=== PATIENT | female | born 1980 | race Caucasian/White ===

== ENCOUNTER → 2017-10-06 | Outpatient (CLI) | payer MEDICARE, OTHER ==
--- NOTE | 2017-10-06 12:28 | MM ---
Reason for exam: clinical finding. Baseline mammogram. History: Patient is postmenopausal. Taking estrogen for 9 years. Taking progesterone for 9 years. Physical Findings: Nurse did not find any significant physical abnormalities on exam. MG 3D Diag Mammo W/Cad AUDELIA Bilateral CC and MLO view(s) were taken. The breast tissue is heterogeneously dense. This may lower the sensitivity of mammography. Finding: There are typically benign round calcifications in the right breast. There is no discrete abnormality. These results were verbally communicated with the patient and result sheet given to the patient on 10/06/17. ASSESSMENT: Benign, BI-RAD 2 RECOMMENDATION: Routine screening mammogram of both breasts in 1 year. Manage patient on a clinical basis.
== END | disposition home or self-care (01) ==
LOC: RADMAMWWP 11:01
PROVIDERS: ATTEND Family Medicine
DX: N63.0 Unspecified lump in unspecified breast (principal)
CPT/HCPCS: 77066; G0279

== ENCOUNTER → 2017-12-12 | Outpatient (CLI) | payer MEDICARE ==
--- NOTE | 2017-12-20 11:48 | MR ---
EXAMINATION TYPE: MR brain wo/w con DATE OF EXAM: 12/12/2017 COMPARISON: Outside brain MRI June 03, 2016 HISTORY: Epilepsy / Chronic Migraine / Cerebral Aneurysm all per order. Additional symptoms of dizzin ess and/or hearing loss per patient as well as cervical cancer. TECHNIQUE: Multiplanar, multisequence images of the brain and brainstem is performed without and with IV contras t, utilizing 8.5 mL intravenous Gadavist . FINDINGS: Diffusion weighted images demonstrate no evidence of a recent infarct or other diffusion ab normality. There is no extra-axial fluid collection or significant white matter signal abnormality. The ventricular system and cisternal spaces are normal in size and appearance. The brain volume is age appropriate. Midline structures demonstrate normal morphology. The craniocervical junction appears within normal limits. Post contrast images demonstrate no abnormal enhancement. Artifact from prior aneurysm surge ry along course of left internal carotid artery on prior report is not as well seen on current study. The dural venous sinuses appear patent. There is persistent severe mucosal thickening nearly complet kathy filling the right maxillary sinus. There is interval resolution of rounded mucous retention cyst or polyp in the left maxillary sinus. Mild mucosal thickening bilateral ethmoid sinuses is redemonstr ated. IMPRESSION: Persistent chronic paranasal sinus disease most prominent in right maxillary sinus. No si gnificant new finding is seen to account for patient's symptoms.
== END | disposition home or self-care (01) ==
LOC: RADMRIMAIN 09:14
PROVIDERS: ATTEND Family Medicine
DX: G40.309 Generalized idiopathic epilepsy and epileptic syndromes, not intractable, without status epilepticus (principal); G43.701 Chronic migraine without aura, not intractable, with status migrainosus; I67.1 Cerebral aneurysm, nonruptured
CPT/HCPCS: 70553; A9581

== ENCOUNTER → 2019-01-30 | Outpatient (CLI) | payer MEDICARE ==
--- NOTE | 2019-01-30 11:51 | US ---
EXAMINATION TYPE: US kidneys/renal and bladder DATE OF EXAM: 01/30/2019 COMPARISON: US CLINICAL HISTORY: N30.01 Acute cystitis with hematuria, ...UTI, renal infections, right flank pain; p susanna's order requested aorta US too. EXAM MEASUREMENTS: Right Kidney: 10.0 x 5.4 x 4.2 cm Left Kidney: 10.4 x 5.4 x 4.8 cm Post Void Residual Volume: 3.8 mL Right Kidney: No hydronephrosis or masses seen Left Kidney: No hydronephrosis or masses seen Bladder: wnl Bilateral Jets seen: Yes Normal Post Void Residual: Yes Aorta: size is wnl throughout Kidneys show normal cortical medullary differentiation. There is no ascites. IMPRESSION: Normal post void residual volume. No evident abdominal aortic aneurysm.
== END | disposition home or self-care (01) ==
LOC: RADUSWWP 08:09
PROVIDERS: ATTEND Family Medicine
DX: N30.01 Acute cystitis with hematuria (principal); M54.5 Low back pain
CPT/HCPCS: 76770

== ENCOUNTER → 2019-04-25 | Outpatient (CLI) | payer MEDICARE ==
--- NOTE | 2019-04-25 15:27 | CT ---
EXAMINATION TYPE: CT abdomen pelvis wo con DATE OF EXAM: 04/25/2019 COMPARISON: Correlation kidney ultrasound 01/30/2019 HISTORY: 39-year-old female Right lower quadrant abdominal pain radiating into flank area and diarrhe a. CT DLP: 676 mGycm. Automated exposure control for dose reduction was used. TECHNIQUE: Contiguous axial scanning of the abdomen and pelvis without IV contrast. Coronal and sagit luiza reconstructions performed. FINDINGS: Heart normal size without pericardial effusion. Lung bases clear without pleural effusion. Noncontrast appearance of the liver, gallbladder, adrenal glands, kidneys, spleen with anterior splen ule, and pancreas shows no gross abnormal body. Normal appendix. Mild to moderate overall stool burden. Oral contrast progressed to the distal transv erse colon. No pericolonic inflammatory change. No mesenteric or retroperitoneal lymphadenopathy. Circumferential bladder wall thickening. Uterus appears surgically absent. However, there is a cystic area measuring 2.7 cm at the vaginal cuff region. Neither ovary is visualized. Some slight nodularit y within the cul-de-sac measures 1.5 cm. No pelvic lymphadenopathy seen. Bones: Focal disc herniation at L4-L5 mildly narrowing the spinal canal. IMPRESSION: 1. Status post hysterectomy. There is a 2.7 cm cystic area at the vaginal cuff. Correlate as to time since surgery. Seroma, chronic hematoma, abscess, and endometrioma are all differential. 2. Additional 1.5 cm soft tissue nodularity in the cul-de-sac. Endometriosis not excluded. Follow-up as indicated. 3. Normal appendix. No nephrolithiasis or hydronephrosis.
== END | disposition home or self-care (01) ==
LOC: RADCTMAIN 10:39
PROVIDERS: ATTEND Family Medicine
DX: M79.89 Other specified soft tissue disorders (principal); N89.8 Other specified noninflammatory disorders of vagina; R10.813 Right lower quadrant abdominal tenderness; Z90.710 Acquired absence of both cervix and uterus
CPT/HCPCS: 74176

== ENCOUNTER 2019-07-15 19:11 | Inpatient (IN) | payer MEDICARE ==
[2019-07-15] MEDS ORDERED: PANTOPRAZOLE 40 MG/10 ML VIAL IVP STA (19:42)
[2019-07-15] MEDS ORDERED: SODIUM CHLORIDE 0.9% 1,000 ML IV STA (19:42)
[2019-07-15] MEDS ORDERED: diphenhydrAMINE 50 MG/ML 1 ML VIAL IVP STA (19:52)
[2019-07-15] MEDS ORDERED: MORPHINE SULFATE 4 MG/ML SYRINGE IVP STA (19:53)
[2019-07-15 20:10] LABS: Basophils # (A) 0.1 k/uL (0-0.2); Basophils % (A) 1 %; Eosinophils # (A) 0.4 k/uL (0-0.7); Eosinophils % (A) 3 %; HCT 47.2 % (34.0-46.0); HGB 15.7 gm/dL (11.4-16.0); Lymphocytes # (A) 2.7 k/uL (1.0-4.8); Lymphocytes % (A) 22 %; MCH 32.6 pg (25.0-35.0); MCHC 33.3 g/dL (31.0-37.0); MCV 98.1 fL (80.0-100.0); Mean Platelet Volume 6.7; Monocytes # (A) 0.7 k/uL (0-1.0); Monocytes % (A) 5 %; Neutrophils # (A) 8.3 k/uL (1.3-7.7); Neutrophils % (A) 68 %; Platelet Count 203 k/uL (150-450); RBC 4.81 m/uL (3.80-5.40); RDW 11.9 % (11.5-15.5); WBC 12.2 k/uL (3.8-10.6)
--- NOTE | 2019-07-15 20:20 | ED ---
General Adult HPI - General Chief complaint: GI Bleed Stated complaint: GI bleed Time Seen by Provider: 07/15/19 19:22 Source: patient, RN notes reviewed Mode of arrival: ambulatory Limitations: no limitations - History of Present Illness Initial comments: 39-year-old female with a past medical history of brain aneurysm, endometriosis, cervical cancer, Crohn's, hysterectomy presents to the emergency determine for diarrhea. Patient has had watery diarrhea for about 2 days now. This is associated with severe cramping abdominal pain. Today patient states she had bright red blood from the rectum while having diarrhea. States she had full episodes of diarrhea that looked like complete blood. Patient has a history of Crohn's. States she has never had this type of bleeding before. States she is not currently on any Crohn's medications. Denies any abdominal surgeries besides hysterectomy.Patient has no other complaints at this time including shortness of breath, chest pain, nausea or vomiting, headache, or visual changes. - Related Data Allergies Allergy/AdvReac Type Severity Reaction Status Date / Time ceftriaxone [From Rocephin] Allergy Itching Verified 07/15/19 19:19 Influenza Virus Vaccines Allergy Nausea & Verified 07/15/19 19:19 Vomiting Iodinated Contrast Media Allergy Itching Verified 07/15/19 19:19 Review of Systems ROS Statement: Those systems with pertinent positive or pertinent negative responses have been documented in the HPI. ROS Other: All systems not noted in ROS Statement are negative. Past Medical History Additional Past Medical History / Comment(s): brain aneurysm, endometriosis, cervical cancer, Chrohns History of Any Multi-Drug Resistant Organisms: None Reported Past Surgical History: Hysterectomy Additional Past Surgical History / Comment(s): brain surgery Past Psychological History: No Psychological Hx Reported Smoking Status: Never smoker Past Alcohol Use History: None Reported Past Drug Use History: None Reported General Exam Limitations: no limitations General appearance: alert, in no apparent distress Head exam: Present: atraumatic, normocephalic, normal inspection Eye exam: Present: normal appearance, PERRL, EOMI. Absent: scleral icterus, conjunctival injection, periorbital swelling ENT exam: Present: normal exam, mucous membranes moist Neck exam: Present: normal inspection, full ROM. Absent: tenderness, meningismus, lymphadenopathy Respiratory exam: Present: normal lung sounds bilaterally. Absent: respiratory distress, wheezes, rales, rhonchi, stridor Cardiovascular Exam: Present: regular rate, normal rhythm, normal heart sounds. Absent: systolic murmur, diastolic murmur, rubs, gallop, clicks GI/Abdominal exam: Present: soft, tenderness (Mild generalized abdominal tenderness without guarding), normal bowel sounds. Absent: distended, guarding, rebound, rigid Rectal exam: Present: normal inspection, normal rectal tone. Absent: bloody stool, fecal impaction, hemorrhoids, mass, tenderness Neurological exam: Present: alert Course Vital Signs 07/15/19 07/15/19 19:14 21:55 Temperature 97.7 F Pulse Rate 121 H 90 Respiratory 16 18 Rate Blood Pressure 124/81 132/95 O2 Sat by Pulse 97 98 Oximetry Medical Decision Making - Medical Decision Making Patient initially tachycardic upon presentation however this is due to anxiety as patient is shaking states she has never had potato bleeding before. Exam reveals diffuse abdominal tenderness. There was no gross blood on rectal exam. CBC shows a mild white blood cell count of 12.2. Patient is afebrile. CMP is unremarkable. A urine does show some evidence of dehydration but looks contaminated by skin cells. CT abdomen and pelvis was obtained given patient's abdominal pain and history of Crohn's disease which shows diffuse wall thickening of the sigmoid colon and lower descending colon that could relate to inflammatory bowel disease and Crohn's disease. There is also evidence of a midline cystic pelvic mass at the vaginal vault that could be postsurgical hematoma or seroma. Patient states her primary care doctor was aware of this. Patient states she is not on any medications for Crohn's. States she has never seen a GI doctor, just sees her primary care provider for this. At this time given concern for rectal bleeding patient will be admitted and GI will be consulted. Patient will be started on Solu-Medrol. - Lab Data Result diagrams: 07/15/19 17:30 07/15/19 17:30 Lab Results 07/15/19 07/15/19 07/15/19 Range/Units 17:25 17:30 17:30 WBC 12.2 H (3.8-10.6) k/uL RBC 4.81 (3.80-5.40) m/uL Hgb 15.7 (11.4-16.0) gm/dL Hct 47.2 H (34.0-46.0) % MCV 98.1 (80.0-100.0) fL MCH 32.6 (25.0-35.0) pg MCHC 33.3 (31.0-37.0) g/dL RDW 11.9 (11.5-15.5) % Plt Count 203 (150-450) k/uL Neutrophils % 68 % Lymphocytes % 22 % Monocytes % 5 % Eosinophils % 3 % Basophils % 1 % Neutrophils # 8.3 H (1.3-7.7) k/uL Lymphocytes # 2.7 (1.0-4.8) k/uL Monocytes # 0.7 (0-1.0) k/uL Eosinophils # 0.4 (0-0.7) k/uL Basophils # 0.1 (0-0.2) k/uL Sodium (137-145) mmol/L Potassium (3.5-5.1) mmol/L Chloride (98-107) mmol/L Carbon Dioxide (22-30) mmol/L Anion Gap mmol/L BUN (7-17) mg/dL Creatinine (0.52-1.04) mg/dL Est GFR (CKD-EPI)AfAm (>60 ml/min/1.73 sqM) Est GFR (CKD-EPI)NonAf (>60 ml/min/1.73 sqM) Glucose (74-99) mg/dL Calcium (8.4-10.2) mg/dL Magnesium (1.6-2.3) mg/dL Total Bilirubin (0.2-1.3) mg/dL AST (14-36) U/L ALT (9-52) U/L Alkaline Phosphatase (38-126) U/L Total Protein (6.3-8.2) g/dL Albumin (3.5-5.0) g/dL Urine Color Urine Appearance (Clear) Urine pH (5.0-8.0) Ur Specific [place] (1.001-1.035) Urine Protein (Negative) Urine Glucose (UA) (Negative) Urine Ketones (Negative) Urine Blood (Negative) Urine Nitrite (Negative) Urine Bilirubin (Negative) Urine Urobilinogen (<2.0) mg/dL Ur Leukocyte Esterase (Negative) Urine RBC (0-5) /hpf Urine WBC (0-5) /hpf Ur Squamous Epith Cells (0-4) /hpf Urine Bacteria (None) /hpf Hyaline Casts (0-2) /lpf Urine Mucus (None) /hpf Stool Occult Blood (Negative) Blood Type A Positive Blood Type Confirm A Positive Blood Type Recheck No Previous Record Bld Type Recheck Status CABO Indicated Antibody Screen NEGATIVE Spec Expiration Date 07/18/2019 - 232907/15/19 07/15/19 07/15/19 Range/Units 17:30 19:32 20:00 WBC (3.8-10.6) k/uL RBC (3.80-5.40) m/uL Hgb (11.4-16.0) gm/dL Hct (34.0-46.0) % MCV (80.0-100.0) fL MCH (25.0-35.0) pg MCHC (31.0-37.0) g/dL RDW (11.5-15.5) % Plt Count (150-450) k/uL Neutrophils % % Lymphocytes % % Monocytes % % Eosinophils % % Basophils % % Neutrophils # (1.3-7.7) k/uL Lymphocytes # (1.0-4.8) k/uL Monocytes # (0-1.0) k/uL Eosinophils # (0-0.7) k/uL Basophils # (0-0.2) k/uL Sodium 141 (137-145) mmol/L Potassium 3.5 (3.5-5.1) mmol/L Chloride 107 (98-107) mmol/L Carbon Dioxide 24 (22-30) mmol/L Anion Gap 10 mmol/L BUN 12 (7-17) mg/dL Creatinine 0.86 (0.52-1.04) mg/dL Est GFR (CKD-EPI)AfAm >90 (>60 ml/min/1.73 sqM) Est GFR (CKD-EPI)NonAf 85 (>60 ml/min/1.73 sqM) Glucose 91 (74-99) mg/dL Calcium 9.1 (8.4-10.2) mg/dL Magnesium 1.9 (1.6-2.3) mg/dL Total Bilirubin 0.4 (0.2-1.3) mg/dL AST 23 (14-36) U/L ALT 24 (9-52) U/L Alkaline Phosphatase 63 (38-126) U/L Total Protein 8.1 (6.3-8.2) g/dL Albumin 4.4 (3.5-5.0) g/dL Urine Color Yellow Urine Appearance Cloudy H (Clear) Urine pH 5.5 (5.0-8.0) Ur Specific [place] 1.020 (1.001-1.035) Urine Protein Trace H (Negative) Urine Glucose (UA) Negative (Negative) Urine Ketones 1+ H (Negative) Urine Blood Moderate H (Negative) Urine Nitrite Negative (Negative) Urine Bilirubin Negative (Negative) Urine Urobilinogen <2.0 (<2.0) mg/dL Ur Leukocyte Esterase Moderate H (Negative) Urine RBC 9 H (0-5) /hpf Urine WBC 6 H (0-5) /hpf Ur Squamous Epith Cells 19 H (0-4) /hpf Urine Bacteria Rare H (None) /hpf Hyaline Casts 13 H (0-2) /lpf Urine Mucus Many H (None) /hpf Stool Occult Blood Positive H (Negative) Blood Type Blood Type Confirm Blood Type Recheck Bld Type Recheck Status Antibody Screen Spec Expiration Date Disposition Clinical Impression: Hematochezia, Crohn's colitis, Abdominal pain, Diarrhea Disposition: ADMITTED IP TO THIS [facility] Condition: Fair Is patient prescribed a controlled substance at d/c from ED?: No Referrals: Ty Moctezuma DO [Primary Care Provider] - 1-2 days Time of Disposition: 22:02
[2019-07-15 20:23] LABS: ALT 24 U/L (9-52); AST 23 U/L (14-36); African American GFR (CKD) >90 (>60 ml/min/1.73 sqM); Albumin 4.4 g/dL (3.5-5.0); Alkaline Phosphatase 63 U/L (38-126); Anion Gap 10 mmol/L; Blood Urea Nitrogen 12 mg/dL (7-17); Calcium 9.1 mg/dL (8.4-10.2); Carbon Dioxide 24 mmol/L (22-30); Chloride 107 mmol/L (98-107); Glucose 91 mg/dL (74-99); Magnesium 1.9 mg/dL (1.6-2.3); Non-African American GFR(CKD) 85 (>60 ml/min/1.73 sqM); Potassium 3.5 mmol/L (3.5-5.1); Sodium 141 mmol/L (137-145); Total Bilirubin 0.4 mg/dL (0.2-1.3); Total Protein 8.1 g/dL (6.3-8.2)
[2019-07-15 20:32] LABS: Appearance,Urine Cloudy (Clear); Bacteria,Urine Rare /hpf; Bilirubin,Urine Negative (Negative); Blood,Urine Moderate (Negative); Color,Urine Yellow; Glucose,Urine (UA) Negative (Negative); Hyaline Casts,Urine 13 /lpf (0-2); Ketones,Urine 1+ (Negative); Leukocyte Esterase,Urine Moderate (Negative); Mucus,Urine Many /hpf; Nitrite,Urine Negative (Negative); PH, Urine 5.5 (5.0-8.0); Protein,Urine Trace (Negative); RBC,Urine 9 /hpf (0-5); Squamous Epithelial Cell,Urine 19 /hpf (0-4); Urobilinogen,Urine <2.0 mg/dL (<2.0)
--- NOTE | 2019-07-15 20:59 | CT ---
EXAMINATION TYPE: CT abdomen pelvis w con DATE OF EXAM: 07/15/2019 COMPARISON: None HISTORY: GI bleed, cramping, h/o crohns. CT DLP: 899.8 mGycm Automated exposure control for dose reduction was used. TECHNIQUE: Helical acquisition of images was performed from the lung bases through the pelvis. CONTRAST: Performed without Oral Contrast and with IV Contrast, patient injected with 100 mL of Isovue 370. FINDINGS: Multiple axial sections were obtained from the diaphragm to the floor the pelvis with intravenous con trast. Lung bases are clear. There is no pleural effusion. Heart size is normal. Liver spleen stomach pancre as gallbladder appear normal. Bile ducts are not dilated. There is no adrenal mass. Kidneys show satisfactory contrast opacification. There is no hydronephrosi s. Ureters are not dilated. There is no retroperitoneal adenopathy. Appendix appears normal. Bladder distends smoothly. There is no inguinal hernia. There is apparent hysterectomy and some cystic mass a t the hysterectomy site that measures 3.4 cm. This could be a seroma or chronic hematoma. Lumbar vertebra have normal spacing and alignment. Posterior elements are intact. There is diffuse wall thickening of the descending colon and the sigmoid colon. There is no free air. There is no ascites. Small bowel appears fairly normal. There is no sign of a m echanical bowel obstruction. There is no ascites or free air. IMPRESSION: DIFFUSE WALL THICKENING OF THE SIGMOID COLON AND LOWER DESCENDING COLON COULD RELATE TO INFLAMMATORY BOWEL DISEASE AND CROHN'S DISEASE. MIDLINE CYSTIC PELVIC MASS AT THE VAGINAL VAULT COULD BE POSTSURGICAL HEMATOMA OR SEROMA.
[2019-07-15] MEDS ORDERED: methylPREDNISolone SOD SUCCI 125 MG/2 ML VIAL IV STA (21:38)
[2019-07-15] MEDS ORDERED: MORPHINE SULFATE 4 MG/ML SYRINGE IV PRN (21:54)
[2019-07-15] MEDS ORDERED: NALOXONE 0.4 MG/ML 1 ML VIAL IV PRN (21:54)
[2019-07-15] MEDS ORDERED: ONDANSETRON 4 MG/2 ML VIAL IVP PRN (21:54)
[2019-07-15] MEDS ORDERED: HYDROmorphone 0.5 MG/0.5 ML SYRINGE IVP STA (21:58)
[2019-07-15] MEDS: SODIUM CHLORIDE 0.9% 1,000 ML IV SCH (22:24)
[2019-07-15 23:01] VITALS: BMI 26.6
[2019-07-16] MEDS ORDERED: diphenhydrAMINE 50 MG/ML 1 ML VIAL IVP STA (01:13)
[2019-07-16] MEDS: AMITRIPTYLINE HCL 50 MG TAB PO SCH ×2 (01:26→20:37)
[2019-07-16] MEDS: DIVALPROEX 500 MG TABLET.DR PO SCH ×4 (01:26→20:36)
[2019-07-16] MEDS: tiZANidine 4 MG TAB PO SCH ×4 (01:27→20:37)
[2019-07-16] MEDS: ESTRADIOL 0.5 MG TAB PO SCH ×2 (01:27→20:37)
[2019-07-16] MEDS: HYDROmorphone 0.5 MG/0.5 ML SYRINGE IVP PRN ×6 (01:27→20:37)
[2019-07-16] MEDS: SODIUM CHLORIDE 0.9% 1,000 ML IV SCH ×3 (05:32→21:22)
[2019-07-16 07:52] LABS: Basophils % (A) 0 %; Eosinophils % (A) 0 %; HGB 13.6 gm/dL (11.4-16.0); Lymphocytes # (A) 1.3 k/uL (1.0-4.8); Lymphocytes % (A) 18 %; MCH 33.9 pg (25.0-35.0); MCHC 34.1 g/dL (31.0-37.0); MCV 99.4 fL (80.0-100.0); Mean Platelet Volume 6.9; Monocytes # (A) 0.1 k/uL (0-1.0); Monocytes % (A) 1 %; Neutrophils # (A) 5.6 k/uL (1.3-7.7); Neutrophils % (A) 80 %; Platelet Count 175 k/uL (150-450); RBC 4.02 m/uL (3.80-5.40); RDW 11.9 % (11.5-15.5)
[2019-07-16] MEDS: TOPIRAMATE 100 MG TAB PO SCH (07:54)
[2019-07-16] MEDS: methylPREDNISolone SOD SUCCI 125 MG/2 ML VIAL IV SCH ×3 (07:55→19:37)
--- NOTE | 2019-07-16 08:07 | P.HPIM ---
History of Present Illness This is a pleasant 39 years old female with past medical history of Crohn's disease since 2004, cervical cancer in 2013 and endometriosis, brain aneurysm on 06/2013 status post 2 coils and 5 stents, she is status post hysterectomy in 2007 because of severe endometriosis. Presents because of 1 day of severe crampy abdominal pain, mainly in the lower abdomen and both right and left sides, it was severe at points felt like pain. [place] like a twisting and colicky pain. Her pain came down with Dilaudid /. Associated with black stool later on to be followed with mucousy and straight blood, and per rectum. Patient vomited twice. Patient states that she has history of Crohn's disease many years ago. Patient denies smoking, alcohol or illicit drug her father recently on 04/2019, she is coping with her status and she sees a psychologist for years however she denies hopelessness or hopelessness or suicidal ideation. No hallucination or delusions. On the presentation Vitas looks stable labs showing mild leukocytosis of 12.2 K, other than that looks unremarkable CBC, BMP, liver enzymes, urine analysis is suspicious for infection. Blood in stool is positive. CT of the abdomen and pelvis with IV contrast: Cystic mass at the hysterectomy sites which could be a seroma or chronic hematoma, there is diffuse wall thickening of the sigmoid and lower descending colon And emergency room, patient given 1 L of normal saline, pain management and 1 dose of steroids. GI team was consulted Review of Systems CONSTITUTIONAL: No fever, no malaise, no fatigue. HEENT: No recent visual problems or hearing problems. Denied any sore throat. CARDIOVASCULAR: No orthopnea, PND, no palpitations, no syncope. PULMONARY: No shortness of breath, no cough, no hemoptysis. GASTROINTESTINAL: Normoactive bowel sounds. NEUROLOGICAL: No headaches, no weakness, no numbness. HEMATOLOGICAL: Denies any bleeding or petechiae. GENITOURINARY: Denies any burning micturition, frequency, or urgency. MUSCULOSKELETAL/RHEUMATOLOGICAL: Denies any joint pain, swelling, or any muscle pain. ENDOCRINE: Denies any polyuria or polydipsia. Past Medical History Additional Past Medical History / Comment(s): brain aneurysm 06/2013, endometriosis, cervical cancer 2013, Chrohns 2004 History of Any Multi-Drug Resistant Organisms: None Reported Past Surgical History: Hysterectomy Additional Past Surgical History / Comment(s): brain surgery 06/2013, hysterectomy 2007. Past Anesthesia/Blood Transfusion Reactions: No Reported Reaction Past Psychological History: Anxiety, Depression, PTSD Smoking Status: Never smoker Past Alcohol Use History: None Reported Past Drug Use History: None Reported - Past Family History Father Additional Family Medical History / Comment(s): brain aneurysm 04/2019 passed Mother Family Medical History: No Reported History Brother(s) Family Medical History: Thyroid Disorder Medications and Allergies Home Medications Medication Instructions Recorded Confirmed Type Amitriptyline HCl 1 tab PO HS 07/15/19 07/15/19 History Divalproex [Depakote] 2 tab PO HS 07/15/19 07/15/19 History Estradiol [Estrace] 0.5 mg PO HS 07/15/19 07/15/19 History Ibuprofen [Motrin] 800 mg PO Q8H PRN 07/15/19 07/15/19 History Ketorolac Tromethamine 10 mg PO Q6H PRN 07/15/19 07/15/19 History Topiramate [Topamax] 100 mg PO DAILY 07/15/19 07/15/19 History tiZANidine HCL 2 tab PO HS 07/15/19 07/15/19 History Allergies Allergy/AdvReac Type Severity Reaction Status Date / Time ceftriaxone [From Rocephin] Allergy Itching Verified 07/15/19 19:19 Influenza Virus Vaccines Allergy Nausea & Verified 07/15/19 19:19 Vomiting Iodinated Contrast Media Allergy Itching Verified 07/15/19 19:19 Physical Exam Vitals: Vital Signs Temp Pulse Pulse Resp BP BP Pulse Ox 07/15/19 23:40 97.9 F 90 20 130/73 97 07/15/19 21:55 90 18 132/95 98 07/15/19 19:14 97.7 F 121 H 16 124/81 97 Intake and Output 07/15/19 07/16/19 07/16/19 22:59 06:59 14:59 Other: # Voids 0 Weight 72.575 kg GENERAL: The patient is alert and oriented x3, not in any acute distress. Well developed, well nourished. HEENT: Pupils are round and equally reacting to light. EOMI. No scleral icterus. No conjunctival pallor. Normocephalic, atraumatic. No pharyngeal erythema. No thyromegaly. CARDIOVASCULAR: S1 and S2 present. No murmurs, rubs, or gallops. PULMONARY: Chest is clear to auscultation, no wheezing or crackles. -ABDOMEN: Soft, lower abdominal pain tenderness but no rebound tenderness or guarding, nondistended, normoactive bowel sounds. No palpable organomegaly. MUSCULOSKELETAL: No joint swelling or deformity. EXTREMITIES: No cyanosis, clubbing, or pedal edema. NEUROLOGICAL: Gross neurological examination did not reveal any focal deficits. SKIN: No rashes. No petechiae Results CBC & Chem 7: 07/16/19 07:06 07/15/19 17:30 Labs: Abnormal Lab Results - Last 24 Hours (Table) 07/15/19 07/15/19 07/15/19 Range/Units 17:30 19:32 20:00 WBC 12.2 H (3.8-10.6) k/uL Hct 47.2 H (34.0-46.0) % Neutrophils # 8.3 H (1.3-7.7) k/uL Urine Appearance Cloudy H (Clear) Urine Protein Trace H (Negative) Urine Ketones 1+ H (Negative) Urine Blood Moderate H (Negative) Ur Leukocyte Esterase Moderate H (Negative) Urine RBC 9 H (0-5) /hpf Urine WBC 6 H (0-5) /hpf Ur Squamous Epith Cells 19 H (0-4) /hpf Urine Bacteria Rare H (None) /hpf Hyaline Casts 13 H (0-2) /lpf Urine Mucus Many H (None) /hpf Stool Occult Blood Positive H (Negative) Thrombosis Risk Factor Assmnt - Choose All That Apply Any of the Below Risk Factors Present?: Yes Each Factor Represents 1 point: Age 41-60 years, Obesity (BMI >25), Oral contraceptives or hormone replacement therapy Other Risk Factors: No Other congenital or acquired thrombophilia - If yes, enter type in comment: No Thrombosis Risk Factor Assessment Total Risk Factor Score: 3 Thrombosis Risk Factor Assessment Level: Moderate Risk Assessment and Plan Assessment: Acute Crohn's exacerbation, with sigmoid and descending Colitis Cystic mass at the vaginal vault could be seroma or hematoma Acute urinary tract infection History of brain aneurysm on 06/2013, followed by migrated and seizure disease History of cervical cancer and endometriosis status post hysterectomy Chronic Crohn's disease since 2004. Anxiety and depression, not in acute process. Recent in the family, father, expected bereavement but no overt depression Plan: this is a pleasant 39 years old female who presents because of sigmoid and descending colitis, suspicious for acute Crohn's exacerbation. Consult GI, continue with IV fluids. Pain management. Call surgical consult for cystic mass and abdominal pain. Follow-up stool culture, C. diff and urine culture. Start Levaquin for UTI and possible gastroenteritis Labs and medication were reviewed.. Continue same treatment. Continue with symptomatic treatment. Resume home medication. Monitor lytes and vitals. DVT and GI prophylaxis. Further recommendations of the clinical course of the patient DVT prophylaxis: no Subcutaneous heparin in view of possible GI bleed GI Prophylaxis: Protonix Prognosis is guarded
[2019-07-16] MEDS: LEVOFLOXACIN 500MG-D5W PMX 500 MG in DEXTROSE/WATER 1 100ML.BAG IVPB SCH (09:35)
[2019-07-16] MEDS: PANTOPRAZOLE 40 MG/10 ML VIAL IVP SCH (09:35)
--- NOTE | 2019-07-16 15:45 | P.GSCN ---
History of Present Illness Consult date: 07/16/19 Reason for Consult: cystic mass, abdominal pain Requesting physician: Conrado E Sheet History of present illness: CHIEF COMPLAINT: Abdominal pain HISTORY OF PRESENT ILLNESS: 39-year-old female who presented to the emergency room with chief complaint of severe cramping abdominal pain, diarrhea, and bright red blood per rectum. Patient does report a history of Crohns disease, but has not followed outpatient with a GI physician outpatient. She reports her last flareup was last fall. She currently rates her pain 04/07. Patient reports her hysterectomy was approximately 11 years ago. PAST MEDICAL HISTORY: See list. PAST SURGICAL HISTORY: See list. SOCIAL HISTORY: No illicit drug use. REVIEW OF SYSTEMS: CONSTITUTIONAL: Denies fever or chills. HEENT: Denies blurred vision, vision changes, or eye pain. Denies hemoptysis CARDIOVASCULAR: Denies chest pain or pressure. RESPIRATORY: No shortness of breath. GASTROINTESTINAL: Refer to HPI for pertinent findings HEMATOLOGIC: Denies bleeding disorders. GENITOURINARY: Denies any blood in urine. SKIN: Denies pruitis. Denies rash. PHYSICAL EXAM: VITAL SIGNS: Reviewed. GENERAL: Well-developed in no acute distress. HEENT: No sclera icterus. Extraocular movements grossly intact. Moist buccal mucosa. Head is atraumatic, normocephalic. ABDOMEN: Soft. Nondistended. Tenderness with palpation. NEUROLOGIC: Alert and oriented. Cranial nerves II through XII grossly intact. LABORATORY DATA: WBC on admission 12.2. Repeat 7.0. Hemoglobin 13.6. Platelet count 175. IMAGING: CT abdomen and pelvis: Diffuse wall thickening of the sigmoid colon and lower descending colon correlate for inflammatory bowel disease or Crohn's disease. Midline cystic pelvic mass at the vaginal vault could be postsurgical hematoma or seroma. ASSESSMENT: 1. Abdominal pain 2. Cystic mass at previous hysterectomy site measuring 3.4 cm. Possible seroma versus chronic hematoma 3. Acute exacerbation of Crohn's disease PLAN: 1. Continue IV antibiotics 2. Continue clear liquid diet 3. GI also on consult. Await recommendations 4. No surgical intervention recommended for possible cystic mass at previous hysterectomy site from a general surgery standpoint. Nurse practitioner note has been reviewed by physician. Signing provider agrees with the documented findings, assessment, and plan of care. Past Medical History Additional Past Medical History / Comment(s): brain aneurysm 06/2013, endometriosis, cervical cancer 2013, Chrohns 2005 History of Any Multi-Drug Resistant Organisms: None Reported Past Surgical History: Hysterectomy Additional Past Surgical History / Comment(s): brain surgery 06/2013, hysterectomy 2007. Past Anesthesia/Blood Transfusion Reactions: No Reported Reaction Past Psychological History: Anxiety, Depression, PTSD Smoking Status: Never smoker Past Alcohol Use History: None Reported Past Drug Use History: None Reported - Past Family History Father Additional Family Medical History / Comment(s): brain aneurysm 04/2019 passed Mother Family Medical History: No Reported History Brother(s) Family Medical History: Thyroid Disorder Medications and Allergies Home Medications Medication Instructions Recorded Confirmed Type Amitriptyline HCl 50 mg PO HS 07/15/19 07/16/19 History Divalproex [Depakote] 1,000 mg PO HS 07/15/19 07/16/19 History Estradiol [Estrace] 0.5 mg PO HS 07/15/19 07/16/19 History Ibuprofen [Motrin] 800 mg PO Q8H PRN 07/15/19 07/16/19 History Ketorolac Tromethamine 10 mg PO Q8H PRN 07/15/19 07/16/19 History Topiramate [Topamax] 100 mg PO DAILY 07/15/19 07/16/19 History tiZANidine HCL 8 mg PO HS 07/15/19 07/16/19 History Allergies Allergy/AdvReac Type Severity Reaction Status Date / Time ceftriaxone [From Rocephin] Allergy Itching Verified 07/16/19 09:42 Influenza Virus Vaccines Allergy Nausea & Verified 07/16/19 09:42 Vomiting Iodinated Contrast Media Allergy Itching Verified 07/16/19 09:42 Surgical - Exam Vital Signs Temp Pulse Resp BP Pulse Ox 97.7 F 121 H 16 124/81 97 07/15/19 19:14 07/15/19 19:14 07/15/19 19:14 07/15/19 19:14 07/15/19 19:14 Results - Labs 07/16/19 07:06 07/15/19 17:30 Abnormal Lab Results - Last 24 Hours (Table) 07/15/19 07/15/19 07/15/19 Range/Units 17:30 19:32 20:00 WBC 12.2 H (3.8-10.6) k/uL Hct 47.2 H (34.0-46.0) % Neutrophils # 8.3 H (1.3-7.7) k/uL Urine Appearance Cloudy H (Clear) Urine Protein Trace H (Negative) Urine Ketones 1+ H (Negative) Urine Blood Moderate H (Negative) Ur Leukocyte Esterase Moderate H (Negative) Urine RBC 9 H (0-5) /hpf Urine WBC 6 H (0-5) /hpf Ur Squamous Epith Cells 19 H (0-4) /hpf Urine Bacteria Rare H (None) /hpf Hyaline Casts 13 H (0-2) /lpf Urine Mucus Many H (None) /hpf Stool Occult Blood Positive H (Negative) Diabetes panel 07/15/19 Range/Units 17:30 Sodium 141 (137-145) mmol/L Potassium 3.5 (3.5-5.1) mmol/L Chloride 107 (98-107) mmol/L Carbon Dioxide 24 (22-30) mmol/L BUN 12 (7-17) mg/dL Creatinine 0.86 (0.52-1.04) mg/dL Glucose 91 (74-99) mg/dL Calcium 9.1 (8.4-10.2) mg/dL AST 23 (14-36) U/L ALT 24 (9-52) U/L Alkaline Phosphatase 63 (38-126) U/L Total Protein 8.1 (6.3-8.2) g/dL Albumin 4.4 (3.5-5.0) g/dL Calcium panel 07/15/19 Range/Units 17:30 Calcium 9.1 (8.4-10.2) mg/dL Albumin 4.4 (3.5-5.0) g/dL Pituitary panel 07/15/19 Range/Units 17:30 Sodium 141 (137-145) mmol/L Potassium 3.5 (3.5-5.1) mmol/L Chloride 107 (98-107) mmol/L Carbon Dioxide 24 (22-30) mmol/L BUN 12 (7-17) mg/dL Creatinine 0.86 (0.52-1.04) mg/dL Glucose 91 (74-99) mg/dL Calcium 9.1 (8.4-10.2) mg/dL Adrenal panel 07/15/19 Range/Units 17:30 Sodium 141 (137-145) mmol/L Potassium 3.5 (3.5-5.1) mmol/L Chloride 107 (98-107) mmol/L Carbon Dioxide 24 (22-30) mmol/L BUN 12 (7-17) mg/dL Creatinine 0.86 (0.52-1.04) mg/dL Glucose 91 (74-99) mg/dL Calcium 9.1 (8.4-10.2) mg/dL Total Bilirubin 0.4 (0.2-1.3) mg/dL AST 23 (14-36) U/L ALT 24 (9-52) U/L Alkaline Phosphatase 63 (38-126) U/L Total Protein 8.1 (6.3-8.2) g/dL Albumin 4.4 (3.5-5.0) g/dL
--- NOTE | 2019-07-16 18:16 | CONS ---
CONSULTATION DATE OF DICTATION: 07/16/2019 REASON FOR CONSULTATION: Abdominal pain, bloody diarrhea of 4 days' duration. HISTORY OF PRESENT ILLNESS: The patient is a 39-year-old pleasant white female who was diagnosed with Crohn's disease 14 years ago while she was living in the [place] area. She states that she was treated with steroids and mesalamine for a year and then she went into clinical remission. In fact, her last colonoscopy was done at the time of her diagnosis of Crohn's disease. She was doing well. However, for the last one month she has been having intermittent rectal bleeding but was having about one bowel movement a day. However, for the last 4 days she started having cramping lower abdominal pain and then she started developing severe bloody diarrhea with bowel movements anywhere from 10 to 15 a day, loose to watery in consistency, with blood and mucus in the stool. She came to the emergency room yesterday, had a CT of the abdomen and pelvis done that showed thickening of the descending and sigmoid colon consistent with acute colitis. The patient was started on Solu-Medrol 60 mg q.8 hours and she is feeling better. She denies any fever, chills, night sweats. She does not recall having a flareup in the last 10 years of having Crohn's disease. PAST MEDICAL HISTORY: Her past medical history is significant for: 1. Crohn's disease diagnosed 14 years ago. 2. History of endometriosis. 3. Cervical cancer, for which she underwent hysterectomy. PAST SURGICAL HISTORY: 1. Brain surgery. 2. Hysterectomy. 3. Colonoscopy 14 years ago. MEDICATIONS: Medications at home include: 1. Depakote. 2. Estrace. 3. Motrin. 4. Topamax. 5. . 6. Ketorolac. 7. Amitriptyline. ALLERGIES: FLU VACCINE and ROCEPHIN. SOCIAL HISTORY: No smoking. No alcohol use. FAMILY HISTORY: Mother unremarkable. Brother had thyroid disorder. REVIEW OF SYSTEMS: CARDIOPULMONARY: No chest pain or shortness of breath. GENITOURINARY: No dysuria or hematuria. MUSCULOSKELETAL: Unremarkable. SKIN: Unremarkable. ENDOCRINE: Unremarkable. PSYCHIATRIC: Unremarkable. NEUROLOGY: Unremarkable. ENT/VISION: Unremarkable. CONSTITUTIONAL: No recent weight loss. No fever, chills, night sweats. PHYSICAL EXAMINATION: Blood pressure 125/80, pulse rate , temperature 98. HEENT examination unremarkable. Conjunctivae pink. Sclerae anicteric. Oral cavity no lesions. NECK: No JVD or lymph node enlargement. CHEST: Clear to auscultation. HEART: Regular rate and rhythm. ABDOMEN: Soft. There was very minimal tenderness in the left lower quadrant area. Bowel sounds are positive. No organomegaly. EXTREMITIES: No pedal edema. SKIN: No rashes. NEUROLOGIC: Alert and oriented x3. No focal deficits. LABS: Labs from today show WBC 12.2, hemoglobin 15.7. Platelets are normal. Basic metabolic panel is within normal limits. Stool occult blood was positive. IMPRESSION: This is a lady who presented to the hospital with acute onset of lower abdominal pain followed by bloody diarrhea for the last 4 days' duration. She was having about 10 to 15 bowel movements daily, loose to watery in consistency, with blood and mucus in the stool. A CT scan of the abdomen in the ER showed thickening of the sigmoid and descending colon consistent with acute colitis. Patient was diagnosed with Crohn's disease about 15 years ago and has been in clinical remission for the last 10 years. Her last colonoscopy was 14 years ago at the time of diagnosis. At this time the possibility of exacerbation of Crohn's disease or infectious colitis needs to be considered. RECOMMENDATIONS: 1. Obtain stool studies. 2. Continue with empiric Solu-Medrol 60 mg q.6 hours. 3. Obtain sedimentation rate and CRP tomorrow. 4. I discussed with the patient the possibility of colonoscopy if the stool cultures are negative in order to assess the degree and severity of colitis. At this time we will consider this during this hospitalization or on an outpatient basis. She is also on empiric antibiotics, which can be continued for now. Thank you for this consultation. Will follow with you closely during her hospital stay. MMODL / IJN: [id number] /
[2019-07-16] MEDS: diphenhydrAMINE 25 MG CAP PO PRN (21:21)
[2019-07-17] MEDS: methylPREDNISolone SOD SUCCI 125 MG/2 ML VIAL IV SCH ×3 (00:59→14:03)
[2019-07-17] MEDS: HYDROmorphone 0.5 MG/0.5 ML SYRINGE IVP PRN ×7 (00:59→19:51)
[2019-07-17] MEDS: LEVOFLOXACIN 500MG-D5W PMX 500 MG in DEXTROSE/WATER 1 100ML.BAG IVPB SCH (07:12)
[2019-07-17] MEDS: PANTOPRAZOLE 40 MG/10 ML VIAL IVP SCH (07:12)
[2019-07-17] MEDS: TOPIRAMATE 100 MG TAB PO SCH (07:13)
[2019-07-17] MEDS: SODIUM CHLORIDE 0.9% 1,000 ML IV SCH ×3 (07:13→23:36)
[2019-07-17] MEDS: diphenhydrAMINE 25 MG CAP PO PRN ×2 (07:19→15:28)
[2019-07-17 09:11] LABS: African American GFR (CKD) >90 (>60 ml/min/1.73 sqM); Anion Gap 12 mmol/L; Blood Urea Nitrogen 7 mg/dL (7-17); Carbon Dioxide 22 mmol/L (22-30); Chloride 109 mmol/L (98-107); Glucose 151 mg/dL (74-99); Non-African American GFR(CKD) >90 (>60 ml/min/1.73 sqM); Potassium 3.8 mmol/L (3.5-5.1); Sodium 143 mmol/L (137-145)
[2019-07-17 09:17] LABS: Basophils % (A) 0 %; Eosinophils % (A) 0 %; HCT 39.8 % (34.0-46.0); HGB 13.2 gm/dL (11.4-16.0); Lymphocytes # (A) 1.3 k/uL (1.0-4.8); Lymphocytes % (A) 9 %; MCH 33.2 pg (25.0-35.0); MCHC 33.2 g/dL (31.0-37.0); MCV 100.1 fL (80.0-100.0); Mean Platelet Volume 6.9; Monocytes # (A) 0.3 k/uL (0-1.0); Monocytes % (A) 2 %; Neutrophils # (A) 12.7 k/uL (1.3-7.7); Neutrophils % (A) 88 %; Platelet Count 185 k/uL (150-450); RBC 3.97 m/uL (3.80-5.40); RDW 11.9 % (11.5-15.5); WBC 14.4 k/uL (3.8-10.6)
[2019-07-17 09:31] LABS: C Reactive Protein 13.3 mg/L (<10.0)
--- NOTE | 2019-07-17 11:21 | P.PN ---
Subjective This is a pleasant 39 years old female with past medical history of Crohn's disease since 2004, cervical cancer in 2013 and endometriosis, brain aneurysm on 06/2013 status post 2 coils and 5 stents, she is status post hysterectomy in 2007 because of severe endometriosis. Presents because of 1 day of severe crampy abdominal pain, mainly in the lower abdomen and both right and left sides, it was severe at points felt like pain. [place] like a twisting and colicky pain. Her pain came down with Dilaudid /. Associated with black stool later on to be followed with mucousy and straight blood, and per rectum. Patient vomited twice. Patient states that she has history of Crohn's disease many years ago. Patient denies smoking, alcohol or illicit drug her father recently on 04/2019, she is coping with her status and she sees a psychologist for years however she denies hopelessness or hopelessness or suicidal ideation. No gonzalez ucination or delusions. On the presentation Vitas looks stable labs showing mild leukocytosis of 12.2 K, other than that looks unremarkable CBC, BMP, liver enzymes, urine analysis is suspicious for infection. Blood in stool is positive. CT of the abdomen and pelvis with IV contrast: Cystic mass at the hysterectomy sites which could be a seroma or chronic hematoma, there is diffuse wall thickening of the sigmoid and lower descending colon And emergency room, patient given 1 L of normal saline, pain management and 1 dose of steroids. GI team was consulted 05/17/2019 Patient is awake and alert, she has source mouth, also pain on swallowing only. No bowel movement but a few drops of blood since yesterday. She still have some lower abdominal pain and tenderness. No nausea vomiting. Surgical team recommended no surgical intervention, day care home mother evaluation is appreciated, recommended to continue with steroids and Levaquin and hydration with plan for colonoscopy soon. She is hemodynamically stable with no more fever. Leukocytosis 14.4 K, probably from steroids effect, rule out infection. Stool cultures are still pending. C-reactive protein is 13.3 Review of systems CONSTITUTIONAL: No fever, no malaise, no fatigue. HEENT: No recent visual problems or hearing problems. Denied any sore throat. CARDIOVASCULAR: No orthopnea, PND, no palpitations, no syncope. PULMONARY: No shortness of breath, no cough, no hemoptysis. GASTROINTESTINAL: Normoactive bowel sounds. NEUROLOGICAL: No headaches, no weakness, no numbness. HEMATOLOGICAL: Denies any bleeding or petechiae. GENITOURINARY: Denies any burning micturition, frequency, or urgency. MUSCULOSKELETAL/RHEUMATOLOGICAL: Denies any joint pain, swelling, or any muscle pain. ENDOCRINE: Denies any polyuria or polydipsia. Active Medications Generic Name Dose Route Start Last Admin Trade Name Freq PRN Reason Stop Dose Admin Amitriptyline HCl 50 mg 07/16/19 01:14 07/16/19 20:37 Elavil PO 50 mg HS JAY Administration Diphenhydramine HCl 25 mg 07/16/19 20:48 07/17/19 07:19 Benadryl PO 25 mg TID PRN Administration Itching Divalproex Sodium 1,000 mg 07/16/19 01:33 07/16/19 20:36 Depakote PO 1,000 mg HS JAY Administration Estradiol 0.5 mg 07/16/19 01:30 07/16/19 20:37 Estrace PO 0.5 mg HS JAY Administration Hydromorphone HCl 0.5 mg 07/15/19 21:54 07/17/19 10:53 Dilaudid IVP 0.5 mg Q3HR PRN Administration Moderate Pain Sodium Chloride 1,000 mls @ 120 mls/hr 07/15/19 22:00 07/17/19 10:44 Saline 0.9% IV 120 mls/hr .Q8H20M JAY Administration Levofloxacin 500 mg/ IV 100 mls @ 100 mls/hr 07/16/19 09:00 07/17/19 07:12 Solution IVPB 100 mls/hr Q24H JAY Administration Methylprednisolone Sodium Succinate 60 mg 07/16/19 08:00 07/17/19 07:12 Solu-Medrol IV 60 mg Q6H JAY Administration Morphine Sulfate 4 mg 07/15/19 21:54 07/16/19 15:47 Morphine Sulfate (Inj) IV 4 mg Q4HR PRN Administration Severe Pain Naloxone HCl 0.2 mg 07/15/19 21:54 Narcan IV Q2M PRN Opioid Reversal Ondansetron HCl 4 mg 07/15/19 21:54 Zofran IVP Q8HR PRN Nausea And Vomiting Pantoprazole Sodium 40 mg 07/16/19 09:00 07/17/19 07:12 Protonix IVP 40 mg DAILY JAY Administration Tizanidine HCl 8 mg 07/16/19 01:34 07/16/19 20:37 Zanaflex PO 8 mg HS JAY Administration Topiramate 100 mg 07/16/19 09:00 07/17/19 07:13 Topamax PO 100 mg DAILY JAY Administration Objective - Vital Signs Vital signs: Vital Signs Temp 96.9 F L 07/17/19 05:00 Pulse 81 07/17/19 05:00 Resp 18 07/17/19 05:00 BP 111/74 07/17/19 05:00 Pulse Ox 94 L 07/17/19 05:00 Intake & Output 07/16/19 07/17/19 07/17/19 18:59 06:59 18:59 Intake Total 500 950 390 Balance 500 950 390 Intake: Oral 500 950 390 Other: Voiding Method Toilet Toilet # Voids 2 2 2 - Exam GENERAL: The patient is alert and oriented x3, not in any acute distress. Well developed, well nourished. HEENT: Pupils are round and equally reacting to light. EOMI. No scleral icterus. No conjunctival pallor. Normocephalic, atraumatic. No pharyngeal erythema. No thyromegaly. CARDIOVASCULAR: S1 and S2 present. No murmurs, rubs, or gallops. PULMONARY: Chest is clear to auscultation, no wheezing or crackles. -ABDOMEN: Soft, lower abdominal pain tenderness but no rebound tenderness or guarding, nondistended, normoactive bowel sounds. No palpable organomegaly. MUSCULOSKELETAL: No joint swelling or deformity. EXTREMITIES: No cyanosis, clubbing, or pedal edema. NEUROLOGICAL: Gross neurological examination did not reveal any focal deficits. SKIN: No rashes. No petechiae - Labs CBC & Chem 7: 07/17/19 08:13 07/17/19 08:13 Labs: Abnormal Lab Results - Last 24 Hours (Table) 07/17/19 07/17/19 Range/Units 08:13 08:13 WBC 14.4 H (3.8-10.6) k/uL MCV 100.1 H (80.0-100.0) fL Neutrophils # 12.7 H (1.3-7.7) k/uL Chloride 109 H (98-107) mmol/L Glucose 151 H (74-99) mg/dL C-Reactive Protein 13.3 H (<10.0) mg/L Assessment and Plan Assessment: Acute Crohn's exacerbation, with sigmoid and descending Colitis Cystic mass at the vaginal vault could be seroma or hematoma Acute urinary tract infection History of brain aneurysm on 06/2013, followed by migrated and seizure disease History of cervical cancer and endometriosis status post hysterectomy Chronic Crohn's disease since 2004. Anxiety and depression, not in acute process. Recent in the family, father, expected bereavement but no overt depression Plan: this is a pleasant 39 years old female who presents because of sigmoid and descending colitis, suspicious for acute Crohn's exacerbation. Consult GI, continue with IV fluids. Pain management. Call surgical consult for cystic mass and abdominal pain. Follow-up stool culture, C. diff and urine culture. Start Levaquin for UTI and possible gastroenteritis Labs and medication were reviewed.. Continue same treatment. Continue with symptomatic treatment. Resume home medication. Monitor lytes and vitals. DVT and GI prophylaxis. Further recommendations of the clinical course of the patient DVT prophylaxis: no Subcutaneous heparin in view of possible GI bleed GI Prophylaxis: Protonix Prognosis is guarded
[2019-07-17] MEDS ORDERED: diphenhydrAMINE 25 MG CAP PO PRN (11:31)
[2019-07-17 12:00] LABS: Erythrocyte Sedimentation Rate 18 mm/hr (0-20)
--- NOTE | 2019-07-17 13:38 | P.PN ---
Subjective Progress Note Date: 07/17/19 CHIEF COMPLAINT: Abdominal pain HISTORY OF PRESENT ILLNESS: Patient examined at the bedside with Dr. Weiss. Patient continues to report abdominal pain that is crampy in nature. She denies nausea or vomiting. WBC 14.4. CRP 13.3 PHYSICAL EXAM: VITAL SIGNS: Reviewed. GENERAL: Well-developed in no acute distress. HEENT: No sclera icterus. Extraocular movements grossly intact. Moist buccal mucosa. Head is atraumatic, normocephalic. ABDOMEN: Soft. Nondistended. Tenderness with palpation. NEUROLOGIC: Alert and oriented. Cranial nerves II through XII grossly intact. ASSESSMENT: 1. Abdominal pain 2. Cystic mass at previous hysterectomy site measuring 3.4 cm. Possible seroma versus chronic hematoma 3. Acute exacerbation of Crohn's disease PLAN: 1. Continue IV antibiotics. Monitor WBC 2. Continue clear liquid diet 3. GI also on consult. Recommendations appreciated 4. No surgical intervention recommended for possible cystic mass at previous hysterectomy site from a general surgery standpoint. Nurse practitioner note has been reviewed by physician. Signing provider agrees with the documented findings, assessment, and plan of care. Objective - Vital Signs Vital signs: Vital Signs Temp 97.8 F 07/17/19 12:52 Pulse 105 H 07/17/19 12:52 Resp 16 07/17/19 12:52 BP 132/82 07/17/19 12:52 Pulse Ox 94 L 07/17/19 12:52 Intake & Output 07/16/19 07/17/19 07/17/19 18:59 06:59 18:59 Intake Total 500 950 390 Balance 500 950 390 Intake: Oral 500 950 390 Other: Voiding Method Toilet Toilet # Voids 2 2 2 - Labs CBC & Chem 7: 07/17/19 08:13 07/17/19 08:13 Labs: Abnormal Lab Results - Last 24 Hours (Table) 07/17/19 07/17/19 Range/Units 08:13 08:13 WBC 14.4 H (3.8-10.6) k/uL MCV 100.1 H (80.0-100.0) fL Neutrophils # 12.7 H (1.3-7.7) k/uL Chloride 109 H (98-107) mmol/L Glucose 151 H (74-99) mg/dL C-Reactive Protein 13.3 H (<10.0) mg/L
[2019-07-17] MEDS ORDERED: PEG 3350-NA SULF,BICARB,CL/KCL 4,000 ML BOTTLE PO ONE (17:00)
--- NOTE | 2019-07-17 17:39 | PN ---
PROGRESS NOTE DATE OF SERVICE: 07/17/2019 The patient is a 39-year-old pleasant white female admitted to the hospital with acute onset of bloody diarrhea on and off for the last few weeks' duration but much worse in the last [address] scan showed thickening of the left colon consistent with acute colitis. The patient has longstanding history of Crohn's disease diagnosed about 15 years ago but has been in clinical remission for more than 10 years. She was started on IV Solu-Medrol 60 mg q.8 hours and today she did not have any bowel movements. Overall she is feeling much better. She still has some cramping lower abdominal pain. She complains of epigastric discomfort and excessive belching and occasional heartburn. Remains on a clear liquid diet, tolerating well. PHYSICAL EXAMINATION: She appears comfortable. No apparent distress. VITAL SIGNS: Stable. Blood pressure is 132/82, temperature 97.8 and pulse rate 105. HEENT examination unremarkable. Conjunctivae pink. Sclerae anicteric. Oral cavity no lesions. NECK: No JVD or lymph node enlargement. CHEST: Clear to auscultation. HEART: Regular rate and rhythm. ABDOMEN: Soft. There was very minimal tenderness in the right lower quadrant area as well as left lower quadrant area. Rest of the abdomen was benign. Bowel sounds are positive. No organomegaly. EXTREMITIES: No pedal edema. SKIN: No rashes. NEUROLOGIC: Alert and oriented x3. No focal deficits. LABS: CRP was 13.3. CBC showed a WBC of 14.4, hemoglobin normal, platelets normal. Basic metabolic panel is within normal limits. IMPRESSION: 1. This is a lady with longstanding history of Crohn's disease diagnosed 14 years ago who had been in clinical remission for 10 years. She presents to the hospital with acute onset of lower abdominal pain with bloody diarrhea for the last few days' duration. She has been having intermittent rectal bleeding for the last one month's duration. At present she is on IV Solu-Medrol for possible active Crohn's colitis, doing better. 2. Epigastric pain/gastroesophageal reflux disease. RECOMMENDATIONS: 1. Continue with a clear liquid diet. 2. Decrease the Solu-Medrol to 20 mg q.8 hours. 3. Will proceed with an EGD and colonoscopy tomorrow to assess the degree and severity of colitis. Further recommendations will follow based on the endoscopy results. Thank you for this consultation. MMODL / IJN: [id number] /
[2019-07-17] MEDS: DIVALPROEX 500 MG TABLET.DR PO SCH (21:03)
[2019-07-17] MEDS: AMITRIPTYLINE HCL 50 MG TAB PO SCH (21:03)
[2019-07-17] MEDS: ESTRADIOL 0.5 MG TAB PO SCH (21:04)
[2019-07-17] MEDS: tiZANidine 4 MG TAB PO SCH (21:04)
[2019-07-17] MEDS: methylPREDNISolone SOD SUCCI 40 MG/ML 1 ML VIAL IV SCH (21:14)
[2019-07-18] MEDS: methylPREDNISolone SOD SUCCI 40 MG/ML 1 ML VIAL IV SCH ×2 (02:21→07:01)
[2019-07-18] MEDS: HYDROmorphone 0.5 MG/0.5 ML SYRINGE IVP PRN ×5 (02:33→21:54)
[2019-07-18 06:34] LABS: Basophils % (A) 0 %; Eosinophils % (A) 0 %; HGB 12.9 gm/dL (11.4-16.0); Lymphocytes # (A) 1.2 k/uL (1.0-4.8); Lymphocytes % (A) 9 %; MCH 33.8 pg (25.0-35.0); MCV 99.6 fL (80.0-100.0); Monocytes # (A) 0.3 k/uL (0-1.0); Monocytes % (A) 2 %; Neutrophils # (A) 11.2 k/uL (1.3-7.7); Neutrophils % (A) 88 %; Platelet Count 188 k/uL (150-450); RBC 3.82 m/uL (3.80-5.40); WBC 12.7 k/uL (3.8-10.6)
[2019-07-18 06:45] LABS: African American GFR (CKD) >90 (>60 ml/min/1.73 sqM); Anion Gap 7 mmol/L; Blood Urea Nitrogen 10 mg/dL (7-17); Calcium 8.5 mg/dL (8.4-10.2); Carbon Dioxide 27 mmol/L (22-30); Chloride 108 mmol/L (98-107); Glucose 115 mg/dL (74-99); Magnesium 2.1 mg/dL (1.6-2.3); Non-African American GFR(CKD) >90 (>60 ml/min/1.73 sqM); Potassium 3.6 mmol/L (3.5-5.1); Sodium 142 mmol/L (137-145)
[2019-07-18] MEDS: LEVOFLOXACIN 500MG-D5W PMX 500 MG in DEXTROSE/WATER 1 100ML.BAG IVPB SCH (07:01)
[2019-07-18] MEDS: PANTOPRAZOLE 40 MG/10 ML VIAL IVP SCH (07:01)
[2019-07-18] MEDS: TOPIRAMATE 100 MG TAB PO SCH (07:02)
[2019-07-18] MEDS: SODIUM CHLORIDE 0.9% 1,000 ML IV SCH ×2 (07:02→14:14)
--- NOTE | 2019-07-18 12:00 | P.PN ---
Subjective This is a pleasant 39 years old female with past medical history of Crohn's disease since 2004, cervical cancer in 2013 and endometriosis, brain aneurysm on 06/2013 status post 2 coils and 5 stents, she is status post hysterectomy in 2007 because of severe endometriosis. Presents because of 1 day of severe crampy abdominal pain, mainly in the lower abdomen and both right and left sides, it was severe at points felt like pain. [place] like a twisting and colicky pain. Her pain came down with Dilaudid /. Associated with black stool later on to be followed with mucousy and straight blood, and per rectum. Patient vomited twice. Patient states that she has history of Crohn's disease many years ago. Patient denies smoking, alcohol or illicit drug her father recently on 04/2019, she is coping with her status and she sees a psychologist for years however she denies hopelessness or hopelessness or suicidal ideation. No gonzalez ucination or delusions. On the presentation Vitas looks stable labs showing mild leukocytosis of 12.2 K, other than that looks unremarkable CBC, BMP, liver enzymes, urine analysis is suspicious for infection. Blood in stool is positive. CT of the abdomen and pelvis with IV contrast: Cystic mass at the hysterectomy sites which could be a seroma or chronic hematoma, there is diffuse wall thickening of the sigmoid and lower descending colon And emergency room, patient given 1 L of normal saline, pain management and 1 dose of steroids. GI team was consulted 07/17/2019 Patient is awake and alert, she has source mouth, also pain on swallowing only. No bowel movement but a few drops of blood since yesterday. She still have some lower abdominal pain and tenderness. No nausea vomiting. Surgical team recommended no surgical intervention, chemical laboratory scientist evaluation is appreciated, recommended to continue with steroids and Levaquin and hydration with plan for colonoscopy soon. She is hemodynamically stable with no more fever. Leukocytosis 14.4 K, probably from steroids effect, rule out infection. Stool cultures are still pending. C-reactive protein is 13.3 07/18/2019 patient is awake, she still complaining of from significant lower abdominal pain and tenderness, no more blood per stool, she has loose stool probably from the GoLYTELY as she is going for EGD/colonoscopy today and she is been having bowel preparation since yesterday. No vomiting, patient is working with no difficulty. Also we'll start the patient on subcu heparin for DVT prophylaxis today as she has no more bleeding per bowel. Objective - Vital Signs Vital signs: Vital Signs Temp 99.6 F 07/18/19 05:35 Pulse 87 07/18/19 05:35 Resp 16 07/18/19 05:35 BP 117/75 07/18/19 05:35 Pulse Ox 95 07/18/19 05:35 Intake & Output 07/17/19 07/18/19 07/18/19 18:59 06:59 18:59 Intake Total 510 600 Balance 510 600 Intake: Oral 510 600 Other: Voiding Method Toilet Toilet Toilet # Voids 2 1 4 # Bowel Movements 1 - Exam GENERAL: The patient is alert and oriented x3, not in any acute distress. Well developed, well nourished. HEENT: Pupils are round and equally reacting to light. EOMI. No scleral icterus. No conjunctival pallor. Normocephalic, atraumatic. No pharyngeal erythema. No thyromegaly. CARDIOVASCULAR: S1 and S2 present. No murmurs, rubs, or gallops. PULMONARY: Chest is clear to auscultation, no wheezing or crackles. -ABDOMEN: Soft, lower abdominal pain tenderness but no rebound tenderness or guarding, nondistended, normoactive bowel sounds. No palpable organomegaly. MUSCULOSKELETAL: No joint swelling or deformity. EXTREMITIES: No cyanosis, clubbing, or pedal edema. NEUROLOGICAL: Gross neurological examination did not reveal any focal deficits. SKIN: No rashes. No petechiae - Labs CBC & Chem 7: 07/18/19 06:11 07/18/19 06:11 Labs: Abnormal Lab Results - Last 24 Hours (Table) 07/18/19 07/18/19 Range/Units 06:11 06:11 WBC 12.7 H (3.8-10.6) k/uL Neutrophils # 11.2 H (1.3-7.7) k/uL Chloride 108 H (98-107) mmol/L Glucose 115 H (74-99) mg/dL Microbiology - Last 24 Hours (Table) 07/18/19 05:00 Stool Culture - Preliminary Stool Assessment and Plan Assessment: Acute Crohn's exacerbation, with sigmoid and descending Colitis Cystic mass at the vaginal vault could be seroma or hematoma Acute urinary tract infection History of brain aneurysm on 06/2013, followed by migrated and seizure disease History of cervical cancer and endometriosis status post hysterectomy Chronic Crohn's disease since 2004. Anxiety and depression, not in acute process. Recent in the family, father, expected bereavement but no overt depression Plan: this is a pleasant 39 years old female who presents because of sigmoid and descending colitis, suspicious for acute Crohn's exacerbation. Consult GI, continue with IV fluids. Pain management. Call surgical consult for cystic mass and abdominal pain. Follow-up stool culture, C. diff and urine culture. Start Levaquin for UTI and possible gastroenteritis Labs and medication were reviewed.. Continue same treatment. Continue with symptomatic treatment. Resume home medication. Monitor lytes and vitals. DVT and GI prophylaxis. Further recommendations of the clinical course of the patient DVT prophylaxis: no Subcutaneous heparin in view of possible GI bleed GI Prophylaxis: Protonix Prognosis is guarded
[2019-07-18] MEDS ORDERED: PROPOFOL 10 MG/ML 20 ML VIAL IV ONE (13:20)
[2019-07-18] MEDS ORDERED: GLYCOPYRROLATE 0.2 MG/ML 2 ML VIAL ONE (13:20)
[2019-07-18] MEDS ORDERED: LIDOCAINE 1% INJ 10MG/ML (20 ML MDV) ONE (13:20)
[2019-07-18] MEDS ORDERED: IV FLUID CONTINUATION 1,000 ML IV ONE (13:23)
[2019-07-18] MEDS ORDERED: LACTATED RINGERS 1,000 ML IV ONE (13:41)
--- NOTE | 2019-07-18 13:51 | P.PCN ---
Date of Procedure: 07/18/19 Procedure(s) Performed: Brief history: Patient is a pleasant 39-year-old white female, with history of Crohn's disease diagnosed at age 25, has been in clinical remission at least for the last 10 years and has not been on any maintenance medications. She was admitted hospital with severe lower abdominal cramping pain associated with bloody diarrhea of 3-4 days duration. In the last moment she has been having intermittent constipation with occasional rectal bleeding. CAT scan of abdomen showed left sided colitis. She was started on empiric steroids and is scheduled for an upper endoscopy as well as colonoscopy today. He also completed severe intermittent epigastric pain and heartburn. Procedure performed: Esophagogastroduodenoscopy with biopsy Colonoscopy with biopsy Preoperative diagnosis: Acute bloody diarrhea of 3-4 days duration GERD/intermittent dysphagia. Anesthesia: MAC Procedure: After informed consent was obtained from the patient was brought into the endoscopy unit and IV sedation was administered by anesthesia under continuous monitoring. Initially upper endoscopy was done. The Olympus GF 160 video endoscope was inserted inserted into the mouth and esophagus intubated without any difficulty and was gradually advanced into the stomach and duodenum and carefully examined. The bulb and second part of the duodenum appeared normal. The scope was then withdrawn into the stomach adequately insufflated with air and upon careful examination the antrum and body, cardia and fundus appeared normal. The scope was then withdrawn into the esophagus. The GE junction was located at 40 cm to the incisors. It appeared regular with no erythema erosions or ulcerations. Rest of the esophagus appeared normal. Patient tolerated the procedure well. At this time the patient continued to remain sedation. Initial digital rectal examination was normal. Olympus CF 160 video colonoscope was then inserted into the rectum and gradually advanced to the cecum without any difficulty. Careful examination was performed as the scope was gradually being withdrawn. The prep was excellent. The middle ileum was intubated and 20 cm visualized appeared normal. Biopsies were done from this area. The cecum, ascending colon, transverse colon, descending colon appeared normal. There was mild segmental colitis noted involving the distal descending colon and proximal sigmoid colon extending from 35-45 cm from the anal verge with mild mucosal erythema but no erosions or ulcerations and multiple biopsies were done from this area. The rest of the sigmoid colon and rectum appeared normal. Retroflexion was performed in the rectum and no lesions were noted. Patient tolerated the procedure well. Impression: 1. Upper Endoscopy revealed mild antral gastritis 2. Colonoscopy revealed mild segmental colitis involving the distal descending colon/proximal sigmoid colon extending from 35-45 cm from the anal verge with mild mucosal erythema but no erosions or ulcerations. Rest of the colon and the terminal ileum appeared normal. endoscopic findings most suspicious for ischemic/infectious colitis rather than inflammatory bowel disease Status post multiple random biopsies. Recommendations: Findings of this examination were discussed with the patient as well as her family. IV steroids will be stopped and she'll be started on prednisone 30 mg daily , which can be tapered by 10 mg every week. In the meantime will await the biopsy results. Diet will be advanced as tolerated. She will be discharged home today or tomorrow with outpatient follow-up in 2 weeks]
--- NOTE | 2019-07-18 14:06 | P.PN ---
Subjective Progress Note Date: 07/18/19 CHIEF COMPLAINT: Abdominal pain HISTORY OF PRESENT ILLNESS: Patient examined at the bedside. Patient continues to report abdominal pain that is crampy in nature. She denies nausea or vomiting. WBC 12.7. Vital signs stable. She is afebrile. PHYSICAL EXAM: VITAL SIGNS: Reviewed. GENERAL: Well-developed in no acute distress. HEENT: No sclera icterus. Extraocular movements grossly intact. Moist buccal mucosa. Head is atraumatic, normocephalic. ABDOMEN: Soft. Nondistended. Tenderness with palpation. NEUROLOGIC: Alert and oriented. Cranial nerves II through XII grossly intact. ASSESSMENT: 1. Abdominal pain 2. Cystic mass at previous hysterectomy site measuring 3.4 cm. Possible seroma versus chronic hematoma 3. Acute exacerbation of Crohn's disease PLAN: 1. Continue IV antibiotics. Monitor WBC 2. Continue clear liquid diet 3. GI also on consult. Patient scheduled for EGD and colonoscopy today with Dr. Mena 4. No surgical intervention recommended for possible cystic mass at previous hysterectomy site from a general surgery standpoint. Nurse practitioner note has been reviewed by physician. Signing provider agrees with the documented findings, assessment, and plan of care. Objective - Vital Signs Vital signs: Vital Signs Temp 99.6 F 07/18/19 05:35 Pulse 87 07/18/19 05:35 Resp 16 07/18/19 05:35 BP 117/75 07/18/19 05:35 Pulse Ox 95 07/18/19 05:35 Intake & Output 07/17/19 07/18/19 07/18/19 18:59 06:59 18:59 Intake Total 510 600 Balance 510 600 Intake: Oral 510 600 Other: Voiding Method Toilet Toilet Toilet # Voids 2 1 4 # Bowel Movements 1 - Labs CBC & Chem 7: 07/18/19 06:11 07/18/19 06:11 Labs: Abnormal Lab Results - Last 24 Hours (Table) 07/18/19 07/18/19 Range/Units 06:11 06:11 WBC 12.7 H (3.8-10.6) k/uL Neutrophils # 11.2 H (1.3-7.7) k/uL Chloride 108 H (98-107) mmol/L Glucose 115 H (74-99) mg/dL Microbiology - Last 24 Hours (Table) 07/18/19 05:00 Stool Culture - Preliminary Stool
[2019-07-18] MEDS: predniSONE 10 MG TAB PO SCH (14:14)
[2019-07-18] MEDS: HEPARIN SODIUM,PORCINE 5,000 UNIT/ML 1 ML VIAL SQ SCH (19:48)
[2019-07-18] MEDS: DIVALPROEX 500 MG TABLET.DR PO SCH (19:48)
[2019-07-18] MEDS: AMITRIPTYLINE HCL 50 MG TAB PO SCH (19:48)
[2019-07-18] MEDS: tiZANidine 4 MG TAB PO SCH (19:55)
[2019-07-18] MEDS: ESTRADIOL 0.5 MG TAB PO SCH (19:55)
[2019-07-19] MEDS: diphenhydrAMINE 25 MG CAP PO PRN (00:08)
[2019-07-19] MEDS: SODIUM CHLORIDE 0.9% 1,000 ML IV SCH ×3 (00:09→16:54)
[2019-07-19] MEDS: HYDROmorphone 0.5 MG/0.5 ML SYRINGE IVP PRN ×4 (05:34→19:54)
[2019-07-19] MEDS: predniSONE 10 MG TAB PO SCH (07:46)
[2019-07-19] MEDS: PANTOPRAZOLE 40 MG/10 ML VIAL IVP SCH (07:47)
[2019-07-19] MEDS: TOPIRAMATE 100 MG TAB PO SCH (07:47)
[2019-07-19] MEDS: HEPARIN SODIUM,PORCINE 5,000 UNIT/ML 1 ML VIAL SQ SCH ×2 (07:47→21:07)
[2019-07-19] MEDS: LEVOFLOXACIN 500MG-D5W PMX 500 MG in DEXTROSE/WATER 1 100ML.BAG IVPB SCH (08:30)
[2019-07-19 08:52] LABS: Basophils % (A) 0 %; Eosinophils % (A) 0 %; HCT 38.4 % (34.0-46.0); Lymphocytes # (A) 3.3 k/uL (1.0-4.8); Lymphocytes % (A) 41 %; MCH 33.7 pg (25.0-35.0); MCHC 33.9 g/dL (31.0-37.0); MCV 99.4 fL (80.0-100.0); Mean Platelet Volume 6.7; Monocytes # (A) 0.4 k/uL (0-1.0); Monocytes % (A) 5 %; Neutrophils # (A) 4.2 k/uL (1.3-7.7); Neutrophils % (A) 53 %; Platelet Count 183 k/uL (150-450); RBC 3.87 m/uL (3.80-5.40); RDW 11.9 % (11.5-15.5); WBC 8.1 k/uL (3.8-10.6)
[2019-07-19 09:08] LABS: African American GFR (CKD) >90 (>60 ml/min/1.73 sqM); Anion Gap 6 mmol/L; Blood Urea Nitrogen 10 mg/dL (7-17); Calcium 8.6 mg/dL (8.4-10.2); Carbon Dioxide 30 mmol/L (22-30); Chloride 106 mmol/L (98-107); Glucose 95 mg/dL (74-99); Magnesium 2.2 mg/dL (1.6-2.3); Non-African American GFR(CKD) >90 (>60 ml/min/1.73 sqM); Sodium 142 mmol/L (137-145)
[2019-07-19] MEDS ORDERED: Potassium Replacement Protocol 1 EACH MISC MISCELLANE PRN ×2 (12:01→12:29)
--- NOTE | 2019-07-19 12:02 | P.PN ---
Subjective This is a pleasant 39 years old female with past medical history of Crohn's disease since 2004, cervical cancer in 2013 and endometriosis, brain aneurysm on 06/2013 status post 2 coils and 5 stents, she is status post hysterectomy in 2007 because of severe endometriosis. Presents because of 1 day of severe crampy abdominal pain, mainly in the lower abdomen and both right and left sides, it was severe at points felt like pain. [place] like a twisting and colicky pain. Her pain came down with Dilaudid /. Associated with black stool later on to be followed with mucousy and straight blood, and per rectum. Patient vomited twice. Patient states that she has history of Crohn's disease many years ago. Patient denies smoking, alcohol or illicit drug her father recently on 04/2019, she is coping with her status and she sees a psychologist for years however she denies hopelessness or hopelessness or suicidal ideation. No gonzalez ucination or delusions. On the presentation Vitas looks stable labs showing mild leukocytosis of 12.2 K, other than that looks unremarkable CBC, BMP, liver enzymes, urine analysis is suspicious for infection. Blood in stool is positive. CT of the abdomen and pelvis with IV contrast: Cystic mass at the hysterectomy sites which could be a seroma or chronic hematoma, there is diffuse wall thickening of the sigmoid and lower descending colon And emergency room, patient given 1 L of normal saline, pain management and 1 dose of steroids. GI team was consulted 07/17/2019 Patient is awake and alert, she has source mouth, also pain on swallowing only. No bowel movement but a few drops of blood since yesterday. She still have some lower abdominal pain and tenderness. No nausea vomiting. Surgical team recommended no surgical intervention, director instrumentation evaluation is appreciated, recommended to continue with steroids and Levaquin and hydration with plan for colonoscopy soon. She is hemodynamically stable with no more fever. Leukocytosis 14.4 K, probably from steroids effect, rule out infection. Stool cultures are still pending. C-reactive protein is 13.3 07/18/2019 patient is awake, she still complaining of from significant lower abdominal pain and tenderness, no more blood per stool, she has loose stool probably from the GoLYTELY as she is going for EGD/colonoscopy today and she is been having bowel preparation since yesterday. No vomiting, patient is working with no difficulty. Also we'll start the patient on subcu heparin for DVT prophylaxis today as she has no more bleeding per bowel. 07/19/2019 Patient still have significant tenderness in the lower abdomen and to lesser degree in the upper abdomen, she specimens spots of blood per rectum but no bowel movements. No nausea vomiting. Colonoscopy yesterday showing gastritis and distal descending colitis with sigmoid colitis, prednisone is been tapered down by director instrumentation to 30 mg daily. Normal saline is lowered to 25 mL/h. We'll keep patient monitoring for today and possible discharge in 24-48 hours Order for low potassium is placed Objective - Vital Signs Vital signs: Vital Signs Temp 97.8 F 07/19/19 05:43 Pulse 63 07/19/19 05:43 Resp 20 07/19/19 05:43 BP 115/74 07/19/19 05:43 Pulse Ox 94 L 07/19/19 05:43 Intake & Output 07/18/19 07/19/19 07/19/19 18:59 06:59 18:59 Intake Total 340 Balance 340 Intake: IV 100 Oral 240 Other: Voiding Method Toilet Toilet # Voids 4 3 - Exam GENERAL: The patient is alert and oriented x3, not in any acute distress. Well developed, well nourished. HEENT: Pupils are round and equally reacting to light. EOMI. No scleral icterus. No conjunctival pallor. Normocephalic, atraumatic. No pharyngeal erythema. No thyromegaly. CARDIOVASCULAR: S1 and S2 present. No murmurs, rubs, or gallops. PULMONARY: Chest is clear to auscultation, no wheezing or crackles. -ABDOMEN: Soft, lower abdominal pain tenderness but no rebound tenderness or guarding, nondistended, normoactive bowel sounds. No palpable organomegaly. MUSCULOSKELETAL: No joint swelling or deformity. EXTREMITIES: No cyanosis, clubbing, or pedal edema. NEUROLOGICAL: Gross neurological examination did not reveal any focal deficits. SKIN: No rashes. No petechiae - Labs CBC & Chem 7: 07/19/19 08:15 07/19/19 08:15 Labs: Abnormal Lab Results - Last 24 Hours (Table) 07/19/19 Range/Units 08:15 Potassium 3.0 L (3.5-5.1) mmol/L Microbiology - Last 24 Hours (Table) 07/18/19 05:00 Stool Culture - Preliminary Stool Assessment and Plan Assessment: Acute Crohn's exacerbation, with sigmoid and descending Colitis Cystic mass at the vaginal vault could be seroma or hematoma Acute urinary tract infection History of brain aneurysm on 06/2013, followed by migrated and seizure disease History of cervical cancer and endometriosis status post hysterectomy Chronic Crohn's disease since 2004. Anxiety and depression, not in acute process. Recent in the family, father, expected bereavement but no overt depression Plan: this is a pleasant 39 years old female who presents because of sigmoid and descending colitis, suspicious for acute Crohn's exacerbation. Consult GI, continue with IV fluids. Pain management. Call surgical consult for cystic mass and abdominal pain. Follow-up stool culture, C. diff and urine culture. Start Levaquin for UTI and possible gastroenteritis Labs and medication were reviewed.. Continue same treatment. Continue with symptomatic treatment. Resume home medication. Monitor lytes and vitals. DVT and GI prophylaxis. Further recommendations of the clinical course of the patient DVT prophylaxis: no Subcutaneous heparin in view of possible GI bleed GI Prophylaxis: Protonix Prognosis is guarded
--- NOTE | 2019-07-19 13:40 | P.PN ---
Subjective Progress Note Date: 07/19/19 CHIEF COMPLAINT: Abdominal pain HISTORY OF PRESENT ILLNESS: Patient examined at the bedside. Patient continues to report abdominal pain but states it is improved today. She denies nausea or vomiting. Vital signs stable. She is afebrile. PHYSICAL EXAM: VITAL SIGNS: Reviewed. GENERAL: Well-developed in no acute distress. HEENT: No sclera icterus. Extraocular movements grossly intact. Moist buccal mucosa. Head is atraumatic, normocephalic. ABDOMEN: Soft. Nondistended. Mild Tenderness with palpation. NEUROLOGIC: Alert and oriented. Cranial nerves II through XII grossly intact. ASSESSMENT: 1. Abdominal pain 2. Cystic mass at previous hysterectomy site measuring 3.4 cm. Possible seroma versus chronic hematoma 3. Acute exacerbation of Crohn's disease PLAN: 1. Continue IV antibiotics. Monitor WBC 2. Continue diet as tolerated 3. GI also on consult. 4. No surgical intervention recommended for possible cystic mass at previous hysterectomy site from a general surgery standpoint. 5. We will sign off. Please reconsult if needed Nurse practitioner note has been reviewed by physician. Signing provider agrees with the documented findings, assessment, and plan of care. Objective - Vital Signs Vital signs: Vital Signs Temp 97.8 F 07/19/19 05:43 Pulse 63 07/19/19 05:43 Resp 20 07/19/19 05:43 BP 115/74 07/19/19 05:43 Pulse Ox 94 L 07/19/19 05:43 Intake & Output 07/18/19 07/19/19 07/19/19 18:59 06:59 18:59 Intake Total 340 750 Balance 340 750 Intake: IV 100 Oral 240 750 Other: Voiding Method Toilet Toilet # Voids 4 3 2 - Labs CBC & Chem 7: 07/19/19 08:15 07/19/19 08:15 Labs: Abnormal Lab Results - Last 24 Hours (Table) 07/19/19 Range/Units 08:15 Potassium 3.0 L (3.5-5.1) mmol/L Microbiology - Last 24 Hours (Table) 07/18/19 05:00 Stool Culture - Preliminary Stool
[2019-07-19] MEDS: POTASSIUM CHLORIDE ER 20 MEQ TAB.ER PO SCH ×2 (14:09→15:17)
--- NOTE | 2019-07-19 17:37 | PN ---
PROGRESS NOTE DATE OF DICTATION: 07/19/2019 Patient is a 39-year-old pleasant white female admitted to the hospital with acute onset of cramping lower abdominal pain and bloody diarrhea of 2 days' duration. She had an EGD and colonoscopy done yesterday that showed mild gastritis and segmental colitis involving the descending colon. She has a history of Crohn's disease diagnosed 40 years ago which has been in clinical remission and maintained on no medications. She was started on IV steroids which were changed to oral prednisone 30 mg daily. Still awaiting biopsy results. She is doing much better. No bleeding. No bowel movement so far. She has some nausea, vomiting and abdominal pain. PHYSICAL EXAMINATION: Appears comfortable. No apparent distress. VITAL SIGNS: Stable. Blood pressure is 134/75, pulse rate 98, temperature 97.7. HEENT examination unremarkable. Conjunctivae pink. Sclerae anicteric. Oral cavity no lesions. NECK: No JVD or lymph node enlargement. CHEST: Clear to auscultation. HEART: Regular rate and rhythm. ABDOMEN: Soft. Bowel sounds are positive. No organomegaly. EXTREMITIES: No pedal edema. SKIN: No rashes. NEUROLOGIC: Alert and oriented x3. No focal deficits. LABS: Labs from today show WBC 8.1, hemoglobin 13, platelets normal. Basic metabolic panel is within normal limits. IMPRESSION: 1. Acute onset of bloody diarrhea of 2 days' duration with intermittent rectal bleeding for the last one month. EGD and colonoscopy done yesterday showed evidence of mild segmental descending colitis suspicious for infection/ischemic colitis. Doubt inflammatory bowel disease. The patient is on empiric prednisone 30 mg daily and has had no further episodes of bleeding or diarrhea. 2. Epigastric pain, possible gastroesophageal reflux disease. RECOMMENDATIONS: 1. Continue with prednisone 30 mg daily. 2. She can be discharged home tomorrow. 3. Advance diet as tolerated. 4. She was advised to taper the prednisone by 10 mg every week. Thank you for this consultation. MMODL / IJN: [id number] /
[2019-07-19] MEDS: tiZANidine 4 MG TAB PO SCH (21:07)
[2019-07-19] MEDS: DIVALPROEX 500 MG TABLET.DR PO SCH (21:07)
[2019-07-19] MEDS: ESTRADIOL 0.5 MG TAB PO SCH (21:07)
[2019-07-19] MEDS: AMITRIPTYLINE HCL 50 MG TAB PO SCH (21:07)
[2019-07-19] MEDS ORDERED: POTASSIUM CHLORIDE ER 20 MEQ TAB.ER PO STA (21:26)
[2019-07-20] MEDS: HYDROmorphone 0.5 MG/0.5 ML SYRINGE IVP PRN ×2 (00:40→05:44)
[2019-07-20] MEDS: SODIUM CHLORIDE 0.9% 1,000 ML IV SCH ×2 (00:40→16:47)
[2019-07-20] MEDS ORDERED: HYDROcodone/APAP 5-325MG 1 EACH TAB PO PRN (07:56)
[2019-07-20] MEDS: TOPIRAMATE 100 MG TAB PO SCH (08:38)
[2019-07-20] MEDS: predniSONE 10 MG TAB PO SCH (08:38)
[2019-07-20] MEDS: PANTOPRAZOLE 40 MG/10 ML VIAL IVP SCH (08:39)
[2019-07-20] MEDS: HEPARIN SODIUM,PORCINE 5,000 UNIT/ML 1 ML VIAL SQ SCH ×2 (08:39→23:21)
[2019-07-20] MEDS: LEVOFLOXACIN 500MG-D5W PMX 500 MG in DEXTROSE/WATER 1 100ML.BAG IVPB SCH (08:46)
[2019-07-20 09:17] LABS: African American GFR (CKD) >90 (>60 ml/min/1.73 sqM); Anion Gap 8 mmol/L; Blood Urea Nitrogen 14 mg/dL (7-17); Calcium 8.8 mg/dL (8.4-10.2); Carbon Dioxide 25 mmol/L (22-30); Chloride 107 mmol/L (98-107); Glucose 78 mg/dL (74-99); Magnesium 2.4 mg/dL (1.6-2.3); Non-African American GFR(CKD) >90 (>60 ml/min/1.73 sqM); Sodium 140 mmol/L (137-145)
--- NOTE | 2019-07-20 15:44 | PN ---
PROGRESS NOTE DATE OF DICTATION: 07/20/2019 Patient is a 39-year-old pleasant white female admitted to the hospital with bloody diarrhea and lower abdominal pain of 2 days' duration. EGD and colonoscopy done 2 days ago showed segmental colitis in the descending colon. Biopsies are still pending. She is on empiric prednisone 30 mg daily, doing better. No diarrhea. No bleeding. She wants to go home. PHYSICAL EXAMINATION: Appears comfortable. No apparent distress. Vital signs are stable. Blood pressure is 108/86, pulse rate 120 per minute and afebrile. HEENT examination unremarkable. Conjunctivae pink. Sclerae anicteric. Oral cavity no lesions. NECK: No JVD or lymph node enlargement. CHEST: Clear to auscultation. HEART: Regular rate and rhythm. ABDOMEN: Soft. Bowel sounds are positive. No organomegaly. EXTREMITIES: No pedal edema. SKIN: No rashes. NEUROLOGIC: Alert and oriented x3. No focal deficits. LABS: Labs from today show basic metabolic panel is within normal limits. IMPRESSION: 1. Acute lower abdominal pain/bloody diarrhea of 3 to 4 days' duration, status post esophagogastroduodenoscopy and colonoscopy 2 days ago that showed segmental colitis involving the descending colon, presently on empiric prednisone 30 mg daily, doing well. No further episodes of bleeding or diarrhea. 2. History of Crohn's disease diagnosed 15 years ago, on no maintenance medications. RECOMMENDATIONS: 1. Continue with prednisone 30 mg daily and advise to taper it by 10 mg every week. 2. Await biopsy results. 3. Regular diet. 4. She can be discharged home today with outpatient followup in 2 to 3 weeks. Thank you for this consultation. MMODL / IJN: [id number] /
[2019-07-20] MEDS: METOPROLOL TARTRATE 25 MG TAB PO SCH (19:51)
[2019-07-20] MEDS: AMITRIPTYLINE HCL 50 MG TAB PO SCH (23:21)
[2019-07-20] MEDS: DIVALPROEX 500 MG TABLET.DR PO SCH (23:21)
[2019-07-20] MEDS: ESTRADIOL 0.5 MG TAB PO SCH (23:22)
[2019-07-20] MEDS: tiZANidine 4 MG TAB PO SCH (23:22)
[2019-07-21 06:26] VITALS: BP 102/70; PULSE 61; RESP 16; TEMP 97.9
[2019-07-21] MEDS: SODIUM CHLORIDE 0.9% 1,000 ML IV SCH (06:32)
[2019-07-21] MEDS: TOPIRAMATE 100 MG TAB PO SCH (08:14)
[2019-07-21] MEDS: PANTOPRAZOLE 40 MG/10 ML VIAL IVP SCH (08:14)
[2019-07-21] MEDS: HEPARIN SODIUM,PORCINE 5,000 UNIT/ML 1 ML VIAL SQ SCH (08:14)
[2019-07-21] MEDS: predniSONE 10 MG TAB PO SCH (08:14)
[2019-07-21] MEDS: METOPROLOL TARTRATE 25 MG TAB PO SCH (08:15)
[2019-07-21] MEDS: LEVOFLOXACIN 500MG-D5W PMX 500 MG in DEXTROSE/WATER 1 100ML.BAG IVPB SCH (08:15)
[2019-07-21 08:16] LABS: African American GFR (CKD) >90 (>60 ml/min/1.73 sqM); Anion Gap 6 mmol/L; Blood Urea Nitrogen 18 mg/dL (7-17); Calcium 8.6 mg/dL (8.4-10.2); Carbon Dioxide 24 mmol/L (22-30); Chloride 109 mmol/L (98-107); Glucose 92 mg/dL (74-99); Non-African American GFR(CKD) >90 (>60 ml/min/1.73 sqM); Potassium 3.7 mmol/L (3.5-5.1); Sodium 139 mmol/L (137-145)
--- NOTE | 2019-07-21 08:36 | P.PN ---
Subjective This is a pleasant 39 years old female with past medical history of Crohn's disease since 2004, cervical cancer in 2013 and endometriosis, brain aneurysm on 06/2013 status post 2 coils and 5 stents, she is status post hysterectomy in 2007 because of severe endometriosis. Presents because of 1 day of severe crampy abdominal pain, mainly in the lower abdomen and both right and left sides, it was severe at points felt like pain. [place] like a twisting and colicky pain. Her pain came down with Dilaudid /. Associated with black stool later on to be followed with mucousy and straight blood, and per rectum. Patient vomited twice. Patient states that she has history of Crohn's disease many years ago. Patient denies smoking, alcohol or illicit drug her father recently on 04/2019, she is coping with her status and she sees a psychologist for years however she denies hopelessness or hopelessness or suicidal ideation. No gonzalez ucination or delusions. On the presentation Vitas looks stable labs showing mild leukocytosis of 12.2 K, other than that looks unremarkable CBC, BMP, liver enzymes, urine analysis is suspicious for infection. Blood in stool is positive. CT of the abdomen and pelvis with IV contrast: Cystic mass at the hysterectomy sites which could be a seroma or chronic hematoma, there is diffuse wall thickening of the sigmoid and lower descending colon And emergency room, patient given 1 L of normal saline, pain management and 1 dose of steroids. GI team was consulted 07/17/2019 Patient is awake and alert, she has source mouth, also pain on swallowing only. No bowel movement but a few drops of blood since yesterday. She still have some lower abdominal pain and tenderness. No nausea vomiting. Surgical team recommended no surgical intervention, deckhand oyster dredge evaluation is appreciated, recommended to continue with steroids and Levaquin and hydration with plan for colonoscopy soon. She is hemodynamically stable with no more fever. Leukocytosis 14.4 K, probably from steroids effect, rule out infection. Stool cultures are still pending. C-reactive protein is 13.3 07/18/2019 patient is awake, she still complaining of from significant lower abdominal pain and tenderness, no more blood per stool, she has loose stool probably from the GoLYTELY as she is going for EGD/colonoscopy today and she is been having bowel preparation since yesterday. No vomiting, patient is working with no difficulty. Also we'll start the patient on subcu heparin for DVT prophylaxis today as she has no more bleeding per bowel. 07/19/2019 Patient still have significant tenderness in the lower abdomen and to lesser degree in the upper abdomen, she specimens spots of blood per rectum but no bowel movements. No nausea vomiting. Colonoscopy yesterday showing gastritis and distal descending colitis with sigmoid colitis, prednisone is been tapered down by deckhand oyster dredge to 30 mg daily. Normal saline is lowered to 25 mL/h. We'll keep patient monitoring for today and possible discharge in 24-48 hours Order for low potassium is placed 07/20/2019 pt is feeling better , with less abd pain and tenderness no more bloody bowel movement , no n/v and tolerating diet well, pt was about to be discharge when she developed tachycardia with no chest pain or dyspnea or other symptoms. HR was at 133 , EKG : sinus tachycardia at 117, possible hypertrophy and age indetermined infarct. pt discharged was held, continue with iv fluid , and call cardiology consult in the morning Objective - Vital Signs Vital signs: Vital Signs Temp 97.8 F 07/20/19 05:46 Pulse 68 07/20/19 05:46 Resp 14 07/20/19 05:46 BP 110/77 07/20/19 05:46 Pulse Ox 95 07/20/19 05:46 Intake & Output 07/19/19 07/20/19 07/20/19 18:59 06:59 18:59 Intake Total 750 Balance 750 Intake: Oral 750 Other: # Voids 2 2 1 - Exam GENERAL: The patient is alert and oriented x3, not in any acute distress. Well developed, well nourished. HEENT: Pupils are round and equally reacting to light. EOMI. No scleral icterus. No conjunctival pallor. Normocephalic, atraumatic. No pharyngeal erythema. No thyromegaly. CARDIOVASCULAR: S1 and S2 present. No murmurs, rubs, or gallops. PULMONARY: Chest is clear to auscultation, no wheezing or crackles. -ABDOMEN: Soft, lower abdominal pain tenderness but no rebound tenderness or guarding, nondistended, normoactive bowel sounds. No palpable organomegaly. MUSCULOSKELETAL: No joint swelling or deformity. EXTREMITIES: No cyanosis, clubbing, or pedal edema. NEUROLOGICAL: Gross neurological examination did not reveal any focal deficits. SKIN: No rashes. No petechiae - Labs CBC & Chem 7: 07/19/19 08:15 07/21/19 07:14 Labs: Abnormal Lab Results - Last 24 Hours (Table) 07/20/19 Range/Units 07:33 Magnesium 2.4 H (1.6-2.3) mg/dL Microbiology - Last 24 Hours (Table) 07/18/19 05:00 Stool Culture - Preliminary Stool Assessment and Plan Assessment: Acute Crohn's exacerbation, with sigmoid and descending Colitis Cystic mass at the vaginal vault could be seroma or hematoma tachycardia with abnormal EKG Acute urinary tract infection History of brain aneurysm on 06/2013, followed by migrated and seizure disease History of cervical cancer and endometriosis status post hysterectomy Chronic Crohn's disease since 2004. Anxiety and depression, not in acute process. Recent in the family, father, expected bereavement but no overt depression Plan: this is a pleasant 39 years old female who presents because of sigmoid and desc ending colitis, suspicious for acute Crohn's exacerbation. pt is doing well regarding her crhons disease and continue with steroid , she supposed to be discharged on prednisone with slow taper , by 10 mg less every week as per GI recommendation . call cardiology consult and monitor heart rate for her tachycardia Labs and medication were reviewed.. Continue same treatment. Continue with symptomatic treatment. Resume home medication. Monitor lytes and vitals. DVT and GI prophylaxis. Further recommendations of the clinical course of the patient DVT prophylaxis: restart Subcutaneous heparin today as GI bleed is stopped GI Prophylaxis: Protonix Prognosis is guarded
[2019-07-21] MEDS ORDERED: HEPARIN SODIUM,PORCINE 5,000 UNIT/ML 1 ML VIAL SQ SCH (09:00)
--- NOTE | 2019-07-21 12:10 | PN ---
PROGRESS NOTE DATE OF SERVICE: 07/21/2019 Patient is a 39-year-old pleasant white female admitted to the hospital with left lower abdominal pain and diarrhea of a few day's duration. She underwent an EGD, colonoscopy 2 days ago that showed some antral colitis involving the descending colon. The rest of the colon appeared normal. She was diagnosed with Crohn's disease 14 years ago, which has been in clinical remission and maintained on no medications. Biopsies from the colonoscopy revealed chronic gastritis, Lizbeth esophagitis, and there was some focal colitis with ischemic-type features involving the sigmoid colon. No evidence of Crohn's disease. PHYSICAL EXAMINATION: She appears comfortable, in no apparent distress. Vital signs are stable. Blood pressure is 102/70, pulse is 61, temperature 97.9. HEENT: Examination unremarkable. Conjunctivae are pink, sclera nonicteric, oral cavity no lesions. NECK: No JVD or lymph node enlargement. CHEST: Clear to auscultation. HEART: Regular rate and rhythm. ABDOMEN: Soft. Bowel sounds are positive. No organomegaly. EXTREMITIES: No pedal edema. SKIN: No rashes. NEURO: Alert and oriented x3. No focal deficits. LABS: Done today WBC 30 minutes. Basic metabolic panel is within normal limits. IMPRESSION: 1. Lower abdominal pain with bloody diarrhea of 3 days' duration. Colonoscopy revealed segmental colitis involving the sigmoid and descending colon. Biopsies from the descending and sigmoid colon show changes consistent with ischemic colitis. 2. History of Crohn's disease, diagnosed 14 years ago. 3. Lizbeth esophagitis. RECOMMENDATIONS: 1. Will start her on fluconazole 100 mg daily for 3 days. 2. Continue with prednisone 30 mg daily and taper by 10 mg every week. 3. Regular diet. 4. She can be discharged to home today with outpatient followup in 2 weeks. Thank you for this consultation. MMODL / IJN: [id number] /
--- NOTE | 2019-07-21 20:38 | CONS ---
CONSULTATION Mrs. Rodríguez is a 39-year-old female who is admitted through the emergency room with symptoms of abdominal discomfort. She has been evaluated by Dr. Mena and has a known history of Crohn's disease. She has been complaining of progressive dyspnea with cramping and because of that came into the emergency room and subsequently admitted. Cardiology consultation was requested because of episode of sinus tachycardia. The patient is not very active physically, but she is stable, has no exertional chest discomfort. No dyspnea on exertion. No dizziness or palpitation. No syncope. No PND, no orthopnea. She has prior history of seizure related to a history of brain aneurysm that has been followed. Her coronary risk factors negative for hypertension, hyperlipidemia, or diabetes. She is a nonsmoker. MEDICATION: Include tizanidine, Topamax, Motrin, Estrace, Depakote, prednisone and Protonix. REVIEW OF SYSTEMS: RESPIRATORY SYSTEM: She has no recent wheezing. No cough. No history of documented obstructive lung disease. GI SYSTEM: She has the abdominal pain, the GI bleeding. SYSTEM: No dysuria, hematuria. NERVOUS SYSTEM: She had history of seizure. PHYSICAL EXAMINATION: She is a 39-year-old female, alert, oriented, no apparent distress. Blood pressure 102/70 with a heart rate in the 60s. HEAD: Normocephalic. EYES: Sclerae anicteric. NECK: Good carotid upstroke. No jugular venous distention. LUNGS: Clear to auscultation. HEART: Regular rhythm. S1, S2. No S3. No S4. No murmur or rub. ABDOMEN: Soft, nontender. Positive bowel sounds no megaly. EXTREMITIES: No edema. LAB DATA: Revealed the BUN creatinine of 18 and 0.76, potassium 3.7. On admission her white blood cells were 12.2. Her EKG reveals sinus tachycardia with nonspecific ST-T wave changes. IMPRESSION: 1. Exacerbation of Crohn's disease, improving. 2. Sinus tachycardia, probably related to abdominal discomfort. 3. History of brain aneurysm. RECOMMENDATION: From the cardiac standpoint, I see no indication for further cardiac workup at this point. She should be able to be discharged home and follow up as an outpatient. If she has persistent episode of sinus tachycardia, then further evaluation will be done at that time. I have discussed those finding with the patient. Thank you for this consult. We will follow with you.. MMODL / IJN: [id number] /
--- NOTE | 2019-07-21 22:37 | DS ---
DISCHARGE SUMMARY DATE OF SERVICE: 07/21/2019. FINAL DIAGNOSES: 1. Crohn's disease acute exacerbation with sigmoid and descending colitis. 2. Cystic mass in the vaginal vault could be seroma hematoma. 3. Tachycardia. 4. Acute urinary tract infection. 5. History of brain aneurysm 06/30/2013, followed by seizures. 6. History of cervical cancer and endometriosis status post hysterectomy. 7. Chronic Crohn's disease. 8. Anxiety/depression not otherwise specified. DISCHARGE DISPOSITION: The patient will be discharged in stable with guarded prognosis. Multiple consultants cleared the patient. Total time taken 35 minutes. HISTORY OF PRESENT ILLNESS: This 39-year-old woman with a past medical history of multiple medical problems admitted with Crohn's disease acute exacerbation. Patient also had multiple other medical issues as listed. The patient was treated symptomatically along with Dr. Mena and as well as Cardiology. Medications adjusted. Patient improved significantly. Biopsies are pending at this time after endoscopies. The colonoscopy showed some segmental colitis also. The patient improved. Patient is keen on going home. On exam, vitals are stable. Cardiovascular S1, S2. Abdomen soft. Nontender. Nervous System: No focal deficits. DISCHARGE ADVICE AND MEDICATIONS: 1. Diet is cardiac diet. 2. Activity limited until followup. 3. Follow up with Dr. Moctezuma in 2-3 days. 4. Follow up with Dr. Mena and Dr. Ruffin. Cardiology as recommended. DISCHARGE MEDICATIONS: 1. Amitriptyline 50 mg p.o. q.h.s. 2. Depakote 1000 mg q.h.s. 3. Esterase 4.5 mg q.h.s. 4. Ketorolac p.r.n. 5. Tizanidine 8 mg q.h.s. 6. Topamax 100 mg p.o. daily. 7. Lopressor 12.5 mg p.o. b.i.d., hold if the systolic blood pressure less than 100 or heart rate less than 60 and evaluate in the outpatient setting. Given for tachycardia. 8. Motrin 200 mg q.8 p.r.n. 9. Prednisone taper that will be 30 mg daily for 5 days, 20 mg for 7 days and then 10 mg. 10.Protonix 40 mg p.o. daily. Follow up with Dr. Mena's office regarding followup of the biopsies and steroids and other treatments. Follow up with Cardiology regarding the tachycardia. Once again the patient being discharged in stable condition with guarded prognosis. MMODL / IJN: [id number] /
[2019-07-22] MEDS ORDERED: LEVOFLOXACIN 500 MG TAB PO SCH (09:00)
== END 2019-07-21 14:20 | disposition home or self-care (01) | DRG 386 ==
LOC: EC 19:11 → 4MS4W 21:35 → OBSVTOIN 07-17 08:41
PROVIDERS: ADMIT Hospitalist; ATTEND Hospitalist
PROC: 0DB58ZX Excision of Esophagus, Via Natural or Artificial Opening Endoscopic, Diagnostic (ICD-10-PCS; 2019-07-18)
PROC: 0DBK8ZX Excision of Ascending Colon, Via Natural or Artificial Opening Endoscopic, Diagnostic (ICD-10-PCS; 2019-07-18)
PROC: 0DBL8ZX Excision of Transverse Colon, Via Natural or Artificial Opening Endoscopic, Diagnostic (ICD-10-PCS; 2019-07-18)
PROC: 0DBN8ZX Excision of Sigmoid Colon, Via Natural or Artificial Opening Endoscopic, Diagnostic (ICD-10-PCS; 2019-07-18)
PROC: 0DBP8ZX Excision of Rectum, Via Natural or Artificial Opening Endoscopic, Diagnostic (ICD-10-PCS; 2019-07-18)
PROC: 0DBB8ZX Excision of Ileum, Via Natural or Artificial Opening Endoscopic, Diagnostic (ICD-10-PCS; 2019-07-18)
PROC: 0DB98ZX Excision of Duodenum, Via Natural or Artificial Opening Endoscopic, Diagnostic (ICD-10-PCS; principal; 2019-07-18 08:00)
PROC: 0DB78ZX Excision of Stomach, Pylorus, Via Natural or Artificial Opening Endoscopic, Diagnostic (ICD-10-PCS; 2019-07-18 08:00)
DX: K50.111 Crohn's disease of large intestine with rectal bleeding (principal); N39.0 Urinary tract infection, site not specified; B37.81 Candidal esophagitis; K55.9 Vascular disorder of intestine, unspecified; E86.0 Dehydration; N89.9 Noninflammatory disorder of vagina, unspecified; K21.9 Gastro-esophageal reflux disease without esophagitis; K29.50 Unspecified chronic gastritis without bleeding; K59.00 Constipation, unspecified; G40.909 Epilepsy, unspecified, not intractable, without status epilepticus; F32.9 Major depressive disorder, single episode, unspecified; F43.10 Post-traumatic stress disorder, unspecified; Z79.890 Hormone replacement therapy; Z79.899 Other long term (current) drug therapy; Z90.710 Acquired absence of both cervix and uterus; Z85.41 Personal history of malignant neoplasm of cervix uteri; Z85.42 Personal history of malignant neoplasm of other parts of uterus; Z86.79 Personal history of other diseases of the circulatory system; Z98.890 Other specified postprocedural states; Z88.7 Allergy status to serum and vaccine; Z88.1 Allergy status to other antibiotic agents; Z91.041 Radiographic dye allergy status; Z83.49 Family history of other endocrine, nutritional and metabolic diseases
CPT/HCPCS: 36415; 43239; 45379; 74177; 80048; 80053; 81001; 82272; 83735; 84703; 85025; 85652; 86140; 86850; 86900; 86901; 87045; 87046; 87324; 88305; 88312; 93005; 96361; 96374; 96375; 99285

== ENCOUNTER 2020-03-27 17:02 | Observation (INO) | payer MEDICARE, OTHER ==
[2020-03-27 18:28] LABS: Basophils # (A) 0.1 k/uL (0-0.2); Basophils % (A) 0 %; Eosinophils # (A) 0.1 k/uL (0-0.7); Eosinophils % (A) 0 %; HCT 50.2 % (34.0-46.0); HGB 15.6 gm/dL (11.4-16.0); Lymphocytes # (A) 1.4 k/uL (1.0-4.8); Lymphocytes % (A) 6 %; MCH 30.9 pg (25.0-35.0); MCHC 31.1 g/dL (31.0-37.0); MCV 99.3 fL (80.0-100.0); Macrocytosis Slight; Monocytes # (A) 0.3 k/uL (0-1.0); Monocytes % (A) 1 %; Neutrophils # (A) 20.8 k/uL (1.3-7.7); Neutrophils % (A) 92 %; Platelet Count 226 k/uL (150-450); RBC 5.05 m/uL (3.80-5.40); RDW 14.6 % (11.5-15.5); WBC 22.6 k/uL (3.8-10.6)
--- NOTE | 2020-03-27 18:30 | ED ---
General Adult HPI - General Chief complaint: Abdominal Pain Stated complaint: abn CT Time Seen by Provider: 03/27/20 17:58 Source: patient Mode of arrival: ambulatory Limitations: no limitations - History of Present Illness Initial comments: Dictation was produced using [employer] dictation software. please excuse any grammatical, word or spelling errors. This patient was cared for during a federal and state declared state of emergency secondary to Covid 19 Chief Complaint: 39-year-old female past medical history of endometriosis and c hronic pelvic pain presents with abnormal CT. History of Present Illness: 39-year-old female she has extensive history of endometriosis. Earlier this year patient had a expiratory laparoscopy she was found to have multiple precancerous lesions found in her pelvis. Patient lives with chronic pelvic pain that she reports is from her endometriosis. Over the last 48 hours she's been having different characteristic of pain to the right lower quadrant. Patient was also have a pre-surgical CT in preparation for a repeat laparoscopy procedure with plans to move precancerous lesions. She had that CT today and was found that has findings concerning for possible appendicitis. Patient states that she has been having some right-sided pain in different in character from her usual pain but she thought that this was secondary to her endometriosis. She denies any fever. No nausea vomiting. No diarrhea. After the results were obtained. Patient was told to come to the emergency department for further care. The ROS documented in this emergency department record has been reviewed and confirmed by me. Those systems with pertinent positive or negative responses have been documented in the HPI. All other systems are other negative and/or noncontributory. PHYSICAL EXAM: General Impression: Alert and oriented x3, not in acute distress HEENT: Normocephalic atraumatic, extra-ocular movements intact, pupils equal and reactive to light bilaterally, mucous membranes moist. Cardiovascular: Heart regular rate and rhythm Chest: Able to complete full sentences, no retractions, no tachypnea Abdomen: abdomen soft, right lower quadrant tenderness, positive rebound tenderness Musculoskeletal: Pulses present and equal in all extremities, no peripheral edema Motor: no focal deficits noted Neurological: CN II-XII grossly intact, no focal motor or sensory deficits noted Skin: Intact with no visualized rashes Psych: Normal affect and mood ED course: 39-year-old female presents with abnormal CT. Patient's clinical presentation is not entirely classical for acute appendicitis however she does have right lower quadrant abdominal pain and CT findings concerning for acute appendicitis. Vital signs upon arrival are within acceptable limits. Abdominal CT results were reviewed. There was a dilated appendix measuring 8 mm without evidence of inflammatory change. retained debris. Constipation. Laboratory evaluation obtained. Patient has a white count 22.6. Coag panel un remarkable. Metabolic panel is negative. Urine hCG is negative. Clinical presentation concerning for acute appendicitis considering patient has CT imaging evidence of this and leukocytosis. Discussed patient case with Dr. Weiss who is willing to accept patients care. Patient given Zosyn. - Related Data Home Medications Medication Instructions Recorded Confirmed Amitriptyline HCl 50 mg PO HS 07/15/19 07/16/19 Divalproex [Depakote] 1,000 mg PO HS 07/15/19 07/16/19 Ketorolac Tromethamine 10 mg PO Q8H PRN 07/15/19 07/16/19 Topiramate [Topamax] 100 mg PO DAILY 07/15/19 07/16/19 estradioL [Estrace] 0.5 mg PO HS 07/15/19 07/16/19 tiZANidine HCL 8 mg PO HS 07/15/19 07/16/19 Previous Rx's Medication Instructions Recorded predniSONE 30 mg PO DAILY #36 tab 07/19/19 Ibuprofen [Motrin] 200 mg PO Q8H PRN #0 07/21/19 Metoprolol Tartrate [Lopressor] 12.5 mg PO BID #60 dose 07/21/19 Pantoprazole Sodium [Protonix] 40 mg PO DAILY #30 tablet. 07/21/19 Allergies Allergy/AdvReac Type Severity Reaction Status Date / Time ceftriaxone [From Rocephin] Allergy Itching Verified 03/27/20 17:50 Influenza Virus Vaccines Allergy Nausea & Verified 03/27/20 17:50 Vomiting Iodinated Contrast Media Allergy Itching Verified 03/27/20 17:50 Review of Systems ROS Statement: Those systems with pertinent positive or pertinent negative responses have been documented in the HPI. ROS Other: All systems not noted in ROS Statement are negative. Past Medical History Additional Past Medical History / Comment(s): brain aneurysm 06/2013, endometriosis, cervical cancer 2013, Chrohns 2005 History of Any Multi-Drug Resistant Organisms: None Reported Past Surgical History: Hysterectomy Additional Past Surgical History / Comment(s): brain surgery 06/2013, hysterectomy 2007. Past Anesthesia/Blood Transfusion Reactions: No Reported Reaction Past Psychological History: Anxiety, Depression, PTSD Past Alcohol Use History: None Reported Past Drug Use History: None Reported - Past Family History Father Additional Family Medical History / Comment(s): brain aneurysm 04/2019 passed Mother Family Medical History: No Reported History Brother(s) Family Medical History: Thyroid Disorder General Exam Limitations: no limitations Course Vital Signs 03/27/20 03/27/20 17:50 18:56 Temperature 98.1 F Pulse Rate 85 83 Respiratory 18 18 Rate Blood Pressure 126/76 122/82 O2 Sat by Pulse 96 95 Oximetry Medical Decision Making - Lab Data Result diagrams: 03/27/20 18:17 03/27/20 18:17 Lab Results 03/27/20 03/27/20 03/27/20 Range/Units 18:17 18:17 18:17 WBC 22.6 H (3.8-10.6) k/uL RBC 5.05 (3.80-5.40) m/uL Hgb 15.6 (11.4-16.0) gm/dL Hct 50.2 H (34.0-46.0) % MCV 99.3 (80.0-100.0) fL MCH 30.9 (25.0-35.0) pg MCHC 31.1 (31.0-37.0) g/dL RDW 14.6 (11.5-15.5) % Plt Count 226 (150-450) k/uL Neutrophils % 92 % Lymphocytes % 6 % Monocytes % 1 % Eosinophils % 0 % Basophils % 0 % Neutrophils # 20.8 H (1.3-7.7) k/uL Lymphocytes # 1.4 (1.0-4.8) k/uL Monocytes # 0.3 (0-1.0) k/uL Eosinophils # 0.1 (0-0.7) k/uL Basophils # 0.1 (0-0.2) k/uL Macrocytosis Slight PT 11.5 (9.0-12.0) sec INR 1.1 (<1.2) APTT 21.8 L (22.0-30.0) sec Sodium 135 L (137-145) mmol/L Potassium 4.9 (3.5-5.1) mmol/L Chloride 108 H (98-107) mmol/L Carbon Dioxide 20 L (22-30) mmol/L Anion Gap 7 mmol/L BUN 9 (7-17) mg/dL Creatinine 0.73 (0.52-1.04) mg/dL Est GFR (CKD-EPI)AfAm >90 (>60 ml/min/1.73 sqM) Est GFR (CKD-EPI)NonAf >90 (>60 ml/min/1.73 sqM) Glucose 109 H (74-99) mg/dL Calcium 9.0 (8.4-10.2) mg/dL Urine HCG, Qual (Not Detectd) 03/27/20 Range/Units 18:20 WBC (3.8-10.6) k/uL RBC (3.80-5.40) m/uL Hgb (11.4-16.0) gm/dL Hct (34.0-46.0) % MCV (80.0-100.0) fL MCH (25.0-35.0) pg MCHC (31.0-37.0) g/dL RDW (11.5-15.5) % Plt Count (150-450) k/uL Neutrophils % % Lymphocytes % % Monocytes % % Eosinophils % % Basophils % % Neutrophils # (1.3-7.7) k/uL Lymphocytes # (1.0-4.8) k/uL Monocytes # (0-1.0) k/uL Eosinophils # (0-0.7) k/uL Basophils # (0-0.2) k/uL Macrocytosis PT (9.0-12.0) sec INR (<1.2) APTT (22.0-30.0) sec Sodium (137-145) mmol/L Potassium (3.5-5.1) mmol/L Chloride (98-107) mmol/L Carbon Dioxide (22-30) mmol/L Anion Gap mmol/L BUN (7-17) mg/dL Creatinine (0.52-1.04) mg/dL Est GFR (CKD-EPI)AfAm (>60 ml/min/1.73 sqM) Est GFR (CKD-EPI)NonAf (>60 ml/min/1.73 sqM) Glucose (74-99) mg/dL Calcium (8.4-10.2) mg/dL Urine HCG, Qual Not Detected (Not Detectd) Disposition Clinical Impression: Acute appendicitis Disposition: ADMITTED IP TO THIS HOSP Condition: Fair Referrals: Ty Moctezuma DO [Primary Care Provider] - 1-2 days Decision Time: 19:11
[2020-03-27 18:32] LABS: African American GFR (CKD) >90 (>60 ml/min/1.73 sqM); Anion Gap 7 mmol/L; Blood Urea Nitrogen 9 mg/dL (7-17); Carbon Dioxide 20 mmol/L (22-30); Chloride 108 mmol/L (98-107); Glucose 109 mg/dL (74-99); Non-African American GFR(CKD) >90 (>60 ml/min/1.73 sqM); Potassium 4.9 mmol/L (3.5-5.1); Sodium 135 mmol/L (137-145)
[2020-03-27 18:39] LABS: INR 1.1 (<1.2); Prothrombin Time 11.5 sec (9.0-12.0)
[2020-03-27] MEDS ORDERED: MORPHINE SULFATE 4 MG/ML SYRINGE IVP STA (18:40)
[2020-03-27] MEDS ORDERED: ONDANSETRON 4 MG/2 ML VIAL IVP STA (18:41)
[2020-03-27 18:53] LABS: Partial Thromboplastin Time 21.8 sec (22.0-30.0)
[2020-03-27] MEDS ORDERED: PIPERACILLIN-TAZOBACTAM 3.375 GM in SODIUM CHLORIDE 0.9% 100 ML IVPB STA (19:04)
[2020-03-27] MEDS ORDERED: NALOXONE 0.4 MG/ML 1 ML VIAL IV PRN ×2 (19:09→22:40)
[2020-03-27] MEDS ORDERED: ACETAMINOPHEN TAB 325 MG TAB PO PRN (19:09)
--- NOTE | 2020-03-27 19:27 | P.GSHP ---
History of Present Illness H&P Date: 03/27/20 Chief Complaint: Right lower quadrant pain Is a 39-year-old female with a four-day history of right lower quadrant pain. Patient isn't emergent. She had an outpatient CAT scan performed patient has a mildly dilated appendix. The patient white count of 20,000. Past Medical History Additional Past Medical History / Comment(s): brain aneurysm 06/2013, endometriosis, cervical cancer 2013, Chrohns 2004 History of Any Multi-Drug Resistant Organisms: None Reported Past Surgical History: Hysterectomy Additional Past Surgical History / Comment(s): brain surgery 06/2013, hysterectomy 2007. Past Anesthesia/Blood Transfusion Reactions: No Reported Reaction Past Psychological History: Anxiety, Depression, PTSD Past Alcohol Use History: None Reported Past Drug Use History: None Reported - Past Family History Father Additional Family Medical History / Comment(s): brain aneurysm 04/2019 passed Mother Family Medical History: No Reported History Brother(s) Family Medical History: Thyroid Disorder Medications and Allergies Home Medications Medication Instructions Recorded Confirmed Type Amitriptyline HCl 50 mg PO HS 07/15/19 07/16/19 History Divalproex [Depakote] 1,000 mg PO HS 07/15/19 07/16/19 History Ketorolac Tromethamine 10 mg PO Q8H PRN 07/15/19 07/16/19 History Topiramate [Topamax] 100 mg PO DAILY 07/15/19 07/16/19 History estradioL [Estrace] 0.5 mg PO HS 07/15/19 07/16/19 History tiZANidine HCL 8 mg PO HS 07/15/19 07/16/19 History predniSONE 30 mg PO DAILY #36 tab 07/19/19 Rx Ibuprofen [Motrin] 200 mg PO Q8H PRN #0 07/21/19 07/16/19 Rx Metoprolol Tartrate [Lopressor] 12.5 mg PO BID #60 dose 07/21/19 Rx Pantoprazole Sodium [Protonix] 40 mg PO DAILY #30 tablet. 07/21/19 Rx Allergies Allergy/AdvReac Type Severity Reaction Status Date / Time ceftriaxone [From Rocephin] Allergy Itching Verified 03/27/20 17:50 Influenza Virus Vaccines Allergy Nausea & Verified 03/27/20 17:50 Vomiting Iodinated Contrast Media Allergy Itching Verified 03/27/20 17:50 Surgical - Exam Vital Signs Temp Pulse Resp BP Pulse Ox 98.1 F 85 18 126/76 96 03/27/20 17:50 03/27/20 17:50 03/27/20 17:50 03/27/20 17:50 03/27/20 17:50 - General well developed, well nourished, no distress - Eyes PERRL - ENT normal pinna - Neck no masses - Respiratory normal expansion - Cardiovascular Rhythm: regular - Abdomen Marked right lower quadrant tenderness Abdomen: soft Results - Labs 03/27/20 18:17 03/27/20 18:17 Abnormal Lab Results - Last 24 Hours (Table) 03/27/20 03/27/20 03/27/20 Range/Units 18:17 18:17 18:17 WBC 22.6 H (3.8-10.6) k/uL Hct 50.2 H (34.0-46.0) % Neutrophils # 20.8 H (1.3-7.7) k/uL APTT 21.8 L (22.0-30.0) sec Sodium 135 L (137-145) mmol/L Chloride 108 H (98-107) mmol/L Carbon Dioxide 20 L (22-30) mmol/L Glucose 109 H (74-99) mg/dL Diabetes panel 03/27/20 Range/Units 18:17 Sodium 135 L (137-145) mmol/L Potassium 4.9 (3.5-5.1) mmol/L Chloride 108 H (98-107) mmol/L Carbon Dioxide 20 L (22-30) mmol/L BUN 9 (7-17) mg/dL Creatinine 0.73 (0.52-1.04) mg/dL Glucose 109 H (74-99) mg/dL Calcium 9.0 (8.4-10.2) mg/dL Calcium panel 03/27/20 Range/Units 18:17 Calcium 9.0 (8.4-10.2) mg/dL Pituitary panel 03/27/20 Range/Units 18:17 Sodium 135 L (137-145) mmol/L Potassium 4.9 (3.5-5.1) mmol/L Chloride 108 H (98-107) mmol/L Carbon Dioxide 20 L (22-30) mmol/L BUN 9 (7-17) mg/dL Creatinine 0.73 (0.52-1.04) mg/dL Glucose 109 H (74-99) mg/dL Calcium 9.0 (8.4-10.2) mg/dL Adrenal panel 03/27/20 Range/Units 18:17 Sodium 135 L (137-145) mmol/L Potassium 4.9 (3.5-5.1) mmol/L Chloride 108 H (98-107) mmol/L Carbon Dioxide 20 L (22-30) mmol/L BUN 9 (7-17) mg/dL Creatinine 0.73 (0.52-1.04) mg/dL Glucose 109 H (74-99) mg/dL Calcium 9.0 (8.4-10.2) mg/dL Assessment and Plan Assessment: Acute appendicitis. Patient undergo laparoscopic appendectomy
[2020-03-27] MEDS: SODIUM CHLORIDE 0.9% 1,000 ML IV SCH (19:30)
[2020-03-27] MEDS ORDERED: SODIUM CHLORIDE 0.9% 1,000 ML IV ONE ×2 (21:48)
[2020-03-27] MEDS ORDERED: BUPIVACAINE (PF) 0.25% 30 ML VIAL SQ ONE (21:48)
[2020-03-27] MEDS ORDERED: LIDOCAINE 1% INJ 10MG/ML (20 ML MDV) ONE (22:15)
[2020-03-27] MEDS ORDERED: DEXAMETHASONE SOD PHOSPHATE 10 MG/ML 1 ML VIAL ONE (22:15)
[2020-03-27] MEDS ORDERED: ROCURONIUM BROMIDE 10 MG/ML 5 ML VIAL IV ONE (22:15)
[2020-03-27] MEDS ORDERED: MIDAZOLAM 2 MG/2 ML VIAL ONE (22:15)
[2020-03-27] MEDS ORDERED: KETOROLAC 30 MG/ML 1 ML VIAL ONE (22:15)
[2020-03-27] MEDS ORDERED: SUCCINYLCHOLINE CHLORIDE 100 MG/5 ML SYR IV ONE (22:15)
[2020-03-27] MEDS ORDERED: fentaNYL (PF) 50 MCG/ML 2 ML AMP ONE (22:15)
[2020-03-27] MEDS ORDERED: GLYCOPYRROLATE 0.2 MG/ML 2 ML VIAL ONE (22:15)
[2020-03-27] MEDS ORDERED: PROPOFOL 10 MG/ML 20 ML VIAL IV ONE (22:15)
[2020-03-27] MEDS ORDERED: ONDANSETRON 4 MG/2 ML VIAL ONE (22:15)
[2020-03-27] MEDS ORDERED: NEOSTIGMINE 1 MG/ML 10 ML VIAL ONE (22:15)
--- NOTE | 2020-03-27 22:38 | P.OP ---
Date of Procedure: 03/27/20 Preoperative Diagnosis: Acute appendicitis Postoperative Diagnosis: Acute appendicitis Procedure(s) Performed: Laparoscopic appendectomy Anesthesia: DAYLIN Surgeon: Yusuf Weiss Estimated Blood Loss (ml): 5 Pathology: other (Appendix) Condition: stable Disposition: PACU Description of Procedure: LThe patient's placed on the operating table in the supine position. The patient received general anesthesia. The abdomen was prepped and draped in the usual sterile fashion. The skin was anesthetized 1% local Xylocaine at the trocar sites. Using an 11 blade the skin was incised at the umbilicus. The umbilicus was grasped with a Rashad clamp and then a Veress needle was placed into the peritoneal cavity. Position of the Veress needle was confirmed with positive drop test. After adequate insufflation a 5 mm trocar was placed into the peritoneal cavity. The abdomen was further insufflated. And then the laparoscope was placed in the peritoneal cavity. Next a 5 mm trocar was placed in the midline suprapubic position. And then a 10 mm trocar was placed in the midline epigastric position. The patient was rotated with the right side up and in Trendelenburg. The appendix was visualized. The appendix appeared to be inflamed. The appendix was grasped and then using the Harmonic scissors the mesoappendix was divided. A PDS Endoloop was then placed around the base of the appendix. And then the appendix was divided using Harmonic scissors. The appendix was placed into an Endo Catch and brought out through the 10 mm trocar site. The abdomen was irrigated. There is no bleeding seen. The trochars withdrawn. The skin was closed interrupted 3-0 Monocryl suture. Dermabond dressing was applied. Patient was sent to recovery room in stable condition.
[2020-03-27] MEDS ORDERED: LACTATED RINGERS 1,000 ML IV ONE (22:40)
[2020-03-27] MEDS ORDERED: HYDROmorphone 0.5 MG/0.5 ML SYRINGE IVP PRN (22:40)
[2020-03-27] MEDS ORDERED: ONDANSETRON 4 MG/2 ML VIAL IVP PRN (22:40)
[2020-03-28] MEDS: metroNIDAZOLE-NS PMX 500 MG in SALINE 1 100ML.BAG IVPB SCH ×3 (01:10→17:36)
[2020-03-28] MEDS: DIVALPROEX 500 MG TABLET.DR PO SCH ×2 (01:10→20:59)
[2020-03-28] MEDS ORDERED: diphenhydrAMINE 25 MG CAP PO STA (02:01)
[2020-03-28] MEDS: MORPHINE SULFATE 4 MG/ML SYRINGE IV PRN ×2 (03:24→11:17)
[2020-03-28 06:21] LABS: Basophils % (A) 0 %; Eosinophils % (A) 0 %; HCT 47.5 % (34.0-46.0); HGB 14.7 gm/dL (11.4-16.0); Hypochromasia Slight; Lymphocytes # (A) 1.1 k/uL (1.0-4.8); Lymphocytes % (A) 6 %; MCH 31.1 pg (25.0-35.0); MCHC 30.8 g/dL (31.0-37.0); MCV 100.9 fL (80.0-100.0); Macrocytosis Slight; Mean Platelet Volume 7.2; Monocytes # (A) 0.7 k/uL (0-1.0); Monocytes % (A) 3 %; Neutrophils # (A) 18.1 k/uL (1.3-7.7); Neutrophils % (A) 91 %; Platelet Count 239 k/uL (150-450); RBC 4.71 m/uL (3.80-5.40); RDW 14.7 % (11.5-15.5)
[2020-03-28 06:32] LABS: African American GFR (CKD) >90 (>60 ml/min/1.73 sqM); Anion Gap 9 mmol/L; Blood Urea Nitrogen 6 mg/dL (7-17); Calcium 8.3 mg/dL (8.4-10.2); Carbon Dioxide 22 mmol/L (22-30); Chloride 106 mmol/L (98-107); Glucose 175 mg/dL (74-99); Non-African American GFR(CKD) >90 (>60 ml/min/1.73 sqM); Potassium 4.5 mmol/L (3.5-5.1); Sodium 137 mmol/L (137-145)
[2020-03-28] MEDS: SODIUM CHLORIDE 0.9% 1,000 ML IV SCH ×3 (07:52→22:48)
[2020-03-28] MEDS: HYDROcodone/APAP 5-325MG 1 EACH TAB PO PRN ×3 (08:26→17:36)
[2020-03-28] MEDS: PROPRANOLOL 20 MG TAB PO SCH ×2 (09:28→20:59)
[2020-03-28] MEDS: TOPIRAMATE 25 MG TAB PO SCH ×2 (09:28→20:59)
[2020-03-28] MEDS: ENOXAPARIN 40 MG/0.4 ML SYRINGE SQ SCH (09:28)
[2020-03-28] MEDS ORDERED: KETOROLAC 30 MG/ML 1 ML VIAL IVP PRN (11:28)
--- NOTE | 2020-03-28 13:50 | P.PN ---
<ChaudhariSybil Toni - Last Filed: 03/28/20 13:50> Subjective Progress Note Date: 03/28/20 CHIEF COMPLAINT: Abdominal pain HISTORY OF PRESENT ILLNESS: 39-year-old female who is status post laparoscopic appendectomy. Postop day #1. Patient examined at the bedside with Dr. Cristino bourne (covering for Dr. Weiss). Patient is complaining of abdominal pain. Tolerating clear liquid diet. Requesting diet to be advanced. No nausea or vomiting. WBC 20.0. Vital signs are stable. She is afebrile. PHYSICAL EXAM: VITAL SIGNS: Reviewed GENERAL: Well-developed in no acute distress. HEENT: No sclera icterus. Extraocular movements grossly intact. Moist buccal m ucosa. Head is atraumatic, normocephalic. Hears conversational speech. No nasal drainage. NECK: Supple without lymphadenopathy. CHEST: Non-labored respirations and equal bilateral excursions. CARDIOVASCULAR: Regular rate with regular rhythm. Palpable 2+ radial pulses. ABDOMEN: Soft. Nondistended. Surgical sites clean dry intact. MUSCULOSKELETAL: No clubbing or cyanosis. NEUROLOGIC: No focal or lateralizing signs. Cranial nerves II through XII grossly intact. PSYCH: Appropriate affect. Alert and oriented to person, place and time. SKIN: Well perfused. Good skin turgor. ASSESSMENT: 1. Abdominal pain 2. Acute appendicitis 3. Leukocytosis PLAN: -Continue antibiotics. Monitor WBC -Advance diet to full liquids -Pain control. Add Toradol -Incentive spirometer -Activity as tolerated Nurse practitioner note has been reviewed by physician. Signing provider agrees with the documented findings, assessment, and plan of care. Objective - Vital Signs Vital signs: Vital Signs Temp 97.8 F 03/28/20 02:45 Pulse 79 03/28/20 02:45 Resp 17 03/28/20 02:45 BP 142/79 03/28/20 02:45 Pulse Ox 96 03/28/20 02:45 Intake & Output 03/27/20 03/28/20 03/28/20 18:59 06:59 18:59 Intake Total 400 Output Total 5 Balance 395 Weight 76.204 kg 76.204 kg Intake: IV 400 Output: Estimated Blood Loss 5 Other: # Voids 5 - Labs CBC & Chem 7: 03/28/20 05:49 03/28/20 05:49 Labs: Abnormal Lab Results - Last 24 Hours (Table) 03/27/20 03/27/20 03/27/20 Range/Units 18:17 18:17 18:17 WBC 22.6 H (3.8-10.6) k/uL Hct 50.2 H (34.0-46.0) % MCV (80.0-100.0) fL MCHC (31.0-37.0) g/dL Neutrophils # 20.8 H (1.3-7.7) k/uL APTT 21.8 L (22.0-30.0) sec Sodium 135 L (137-145) mmol/L Chloride 108 H (98-107) mmol/L Carbon Dioxide 20 L (22-30) mmol/L BUN (7-17) mg/dL Glucose 109 H (74-99) mg/dL Calcium (8.4-10.2) mg/dL 03/28/20 03/28/20 Range/Units 05:49 05:49 WBC 20.0 H (3.8-10.6) k/uL Hct 47.5 H (34.0-46.0) % MCV 100.9 H (80.0-100.0) fL MCHC 30.8 L (31.0-37.0) g/dL Neutrophils # 18.1 H (1.3-7.7) k/uL APTT (22.0-30.0) sec Sodium (137-145) mmol/L Chloride (98-107) mmol/L Carbon Dioxide (22-30) mmol/L BUN 6 L (7-17) mg/dL Glucose 175 H (74-99) mg/dL Calcium 8.3 L (8.4-10.2) mg/dL <Geovanna Elaine N - Last Filed: 03/30/20 21:20> Subjective Patient seen and evaluated above. Patient has pre-existing history of migraines. We'll resume medications for migraines. Otherwise moderate to severe leukocytosis. Will need continue IV antibiotics prior to discharge. Objective - Vital Signs Vital signs: Vital Signs Temp 97.9 F 03/30/20 07:23 Pulse 63 03/30/20 07:23 Resp 12 03/30/20 07:23 BP 99/53 03/30/20 07:23 Pulse Ox 95 03/30/20 07:23 Intake & Output 03/30/20 03/30/20 03/31/20 06:59 18:59 06:59 Other: # Voids 1 2 - Labs CBC & Chem 7: 03/30/20 06:19 03/28/20 05:49 Labs: Abnormal Lab Results - Last 24 Hours (Table) 03/30/20 Range/Units 06:19 MCV 101.4 H (80.0-100.0) fL Assessment and Plan (1) Migraines Status: Acute Code(s): G43.909 - MIGRAINE, UNSP, NOT INTRACTABLE, WITHOUT STATUS MIGRAINOSUS SNOMED Code(s): 25073221 (2) Leukocytosis Status: Acute Code(s): D72.829 - ELEVATED WHITE BLOOD CELL COUNT, UNSPECIFIED SNOMED Code(s): 148228472 (3) Acute appendicitis Status: Acute Code(s): K35.80 - UNSPECIFIED ACUTE APPENDICITIS SNOMED Code(s): 28131681
--- NOTE | 2020-03-28 22:39 | P.CONS ---
History of Present Illness - Reason for Consult Consult date: 03/28/20 Medical management - Chief Complaint Right lower quadrant abdominal pain and abnormal CT - History of Present Illness Patient is a 39-year-old female with a known history of brain aneurysm status post 5 stents and 2 coils, chronic headaches and on nerve block treatments, history of cervical cancer in 2013 status post LEEP procedure, hysterectomy in 2007 and endometriosis presents to ER with complaints of abdominal pain and abnormal CT scan done by her [facility] physician. Nuclear this year patient had exploratory lap prostatectomy and was found to have multiple precancerous lesions found in the pelvis. For the past 5 days patient has been having right lower quadrant abdominal pain. Patient was seen by her physician and presurgical CT in preparation for a repeat laparoscopic pro cedure to remove precancerous lesions. Patient had CT abdominal pelvis done yesterday, found to have concern for acute appendicitis. Patient was sent to ER. Denied any complaints of fever or chills. No nausea no vomiting. No diarrhea. No chest pain or shortness of breath. Denies any other recent illnesses. Patient was seen by general surgery and was taken to the OR for laparoscopic appendectomy. Patient is currently lying in the bed comfortably. Awake alert oriented x3. Abdominal discomfort of the surgical site but pain is controlled. Does have nausea. No episodes of vomiting. No fever no chills.. Lab data showed WBC 22.6, hemoglobin 15.6 and platelets 226 INR 1.1 Sodium 135, potassium 4.9, chloride 108 and BUN 9 and creatinine 0.73 blood sugar is 10 Review of Systems Constitutional: Patient denies any fever or chills . No generalized weakness or weight loss. Abdomen: Patient denied nausea vomiting and diarrhea . pt delaney s have abdominal pain. Cardiovascular: Patient denies any chest pain or short of breath no p alpitations. Respiratory: patient denied any cough is from production. No shortness of breath Neurologic: Patient denied any numbness or tingling headache. Musculoskeletal: Patient denies any complaints of joint swelling or deformity. Skin: Negative Psychiatric: Negative Endocrine: No heat or cold intolerance. No recent weight gain. Genitourinary: No dysuria or hematuria. All other 14 point ROS negative except the above Past Medical History Additional Past Medical History / Comment(s): brain aneurysm 06/2013, endometriosis, cervical cancer 2013, Chrohns 2005, shingles History of Any Multi-Drug Resistant Organisms: None Reported Past Surgical History: Hysterectomy Additional Past Surgical History / Comment(s): brain surgery 5 stents and two coils 06/2013, hysterectomy 2007. abdominal lap. biopsys EGD/colonoscopy Past Anesthesia/Blood Transfusion Reactions: No Reported Reaction Past Psychological History: Anxiety, Depression, PTSD Smoking Status: Never smoker Past Alcohol Use History: Rare Past Drug Use History: None Reported Additional Drug Use History / Comment(s): patient reports trying marijuana for pain relief in the past to no effect. - Past Family History Father Additional Family Medical History / Comment(s): brain aneurysm 04/2019 passed Mother Family Medical History: No Reported History Brother(s) Family Medical History: Thyroid Disorder Medications and Allergies Home Medications Medication Instructions Recorded Confirmed Type Amitriptyline HCl 50 mg PO HS 07/15/19 03/27/20 History Divalproex [Depakote] 1,000 mg PO HS 07/15/19 03/27/20 History Ketorolac Tromethamine 10 mg PO Q6H PRN 07/15/19 03/27/20 History estradioL [Estrace] 0.5 mg PO DAILY 07/15/19 03/27/20 History tiZANidine HCL 4 mg PO BID 07/15/19 03/27/20 History Estradiol Cream [Estrace Cream 1 applicator VAGINAL TUTH 03/27/20 03/27/20 History 0.01%] Propranolol [Inderal] 20 mg PO BID 03/27/20 03/27/20 History Topiramate [Topamax] 50 mg PO BID 03/27/20 03/27/20 History danazoL [Danazol] 200 mg PO BID 03/27/20 03/27/20 History hydrOXYzine HCL 50 mg PO DAILY 03/27/20 03/27/20 History hydrOXYzine HCL [Atarax] 25 mg PO HS 03/27/20 03/27/20 History Allergies Allergy/AdvReac Type Severity Reaction Status Date / Time ceftriaxone [From Rocephin] Allergy Rash/Hives Verified 03/27/20 19:47 Iodinated Contrast Media Allergy Rash/Hives Verified 03/27/20 19:47 Influenza Virus Vaccines AdvReac Nausea & Verified 03/27/20 19:47 Vomiting Physical Exam Vitals: Vital Signs Temp Pulse Pulse Resp BP BP Pulse Ox 03/28/20 02:45 97.8 F 79 17 142/79 96 03/28/20 01:45 97.8 F 88 18 140/80 96 03/28/20 00:15 61 16 118/70 97 03/27/20 23:45 70 17 114/59 97 03/27/20 23:30 67 16 135/72 96 03/27/20 23:15 67 17 127/81 96 03/27/20 23:00 97.7 F 72 17 137/84 90 L 03/27/20 20:20 97.8 F 81 17 139/69 95 03/27/20 18:56 83 18 122/82 95 03/27/20 17:50 98.1 F 85 18 126/76 96 Intake and Output 03/27/20 03/28/20 03/28/20 22:59 06:59 14:59 Intake Total 400 Output Total 5 Balance 395 Intake: IV 400 Output: Estimated Blood Loss 5 Other: # Voids 1 5 Weight 76.204 kg PHYSICAL EXAMINATION: Patient is lying in the bed comfortably, no acute distress, awake alert and oriented.. HEENT: Normocephalic. Neck is supple. Pupils reactive. Nostrils clear. Oral cavity is moist. Ears reveal no drainage. Neck reveals no JVD, carotid bruits, or thyromegaly. CHEST EXAMINATION: Trachea is central. Symmetrical expansion. Lung gaspar clear to auscultation and percussion. CARDIAC: Normal S1, S2 with no gallops. No murmurs ABDOMEN: Soft. mild tenderness at surgical sie. no guarding. Bowel sounds sluggish. No organomegaly. No abdominal bruits. Extremities: reveal no edema. No clubbing or cyanosis Neurologically awake, alert, oriented x3 with well-coordinated movements. No fo bebe deficits noted Skin: No rash or skin lesions. Psychiatric: Coperative. Nonsuicidal Musculoskeletal: No joint swelling or deformity. Normal range of motion. Results CBC & Chem 7: 03/28/20 05:49 03/28/20 05:49 Labs: Abnormal Lab Results - Last 24 Hours (Table) 03/27/20 03/27/20 03/27/20 Range/Units 18:17 18:17 18:17 WBC 22.6 H (3.8-10.6) k/uL Hct 50.2 H (34.0-46.0) % MCV (80.0-100.0) fL MCHC (31.0-37.0) g/dL Neutrophils # 20.8 H (1.3-7.7) k/uL APTT 21.8 L (22.0-30.0) sec Sodium 135 L (137-145) mmol/L Chloride 108 H (98-107) mmol/L Carbon Dioxide 20 L (22-30) mmol/L BUN (7-17) mg/dL Glucose 109 H (74-99) mg/dL Calcium (8.4-10.2) mg/dL 03/28/20 03/28/20 Range/Units 05:49 05:49 WBC 20.0 H (3.8-10.6) k/uL Hct 47.5 H (34.0-46.0) % MCV 100.9 H (80.0-100.0) fL MCHC 30.8 L (31.0-37.0) g/dL Neutrophils # 18.1 H (1.3-7.7) k/uL APTT (22.0-30.0) sec Sodium (137-145) mmol/L Chloride (98-107) mmol/L Carbon Dioxide (22-30) mmol/L BUN 6 L (7-17) mg/dL Glucose 175 H (74-99) mg/dL Calcium 8.3 L (8.4-10.2) mg/dL Assessment and Plan Assessment: Acute appendicitis status post laparoscopic appendectomy postoperative day 1 Leukocytosis likely reactive. Rule out infection. Endometriosis History of exploratory laparotomy and removal of multiple precancerous lesions in the pelvis in August 2019 History of cervical cancer in 2014 Hysterectomy in 2007 Chronic headaches and on nerve block treatments History of brain aneurysm status post 5 stents and 2 coils placement Chronic pain DVT prophylaxis Heparin subcu Plan: Patient will be continued on pain management, bowel regimen and IV hydration. Encourage incentive spirometry. Continue with empiric antibiotics in the form of Levaquin and Flagyl. Follow-up culture reports. Monitor CBC daily due to leukocytosis. Further recommendations based on the clinical course. We will continue to follow with you. Thank you for your consult. Time with Patient: Greater than 30
[2020-03-28] MEDS: LEVOFLOXACIN 500MG-D5W PMX 500 MG in DEXTROSE/WATER 1 100ML.BAG IVPB SCH ×2 (22:47)
[2020-03-28] MEDS: tiZANidine 4 MG TAB PO SCH (22:47)
[2020-03-28] MEDS: AMITRIPTYLINE HCL 50 MG TAB PO SCH (22:47)
[2020-03-29] MEDS: metroNIDAZOLE-NS PMX 500 MG in SALINE 1 100ML.BAG IVPB SCH ×4 (00:01→23:27)
[2020-03-29] MEDS: ENOXAPARIN 40 MG/0.4 ML SYRINGE SQ SCH (07:38)
[2020-03-29] MEDS: tiZANidine 4 MG TAB PO SCH ×2 (07:39→22:02)
[2020-03-29] MEDS: PROPRANOLOL 20 MG TAB PO SCH ×3 (07:39→22:11)
[2020-03-29] MEDS: TOPIRAMATE 25 MG TAB PO SCH ×2 (07:39→22:02)
[2020-03-29] MEDS: SODIUM CHLORIDE 0.9% 1,000 ML IV SCH ×2 (07:39→15:17)
[2020-03-29 08:06] LABS: Basophils % (A) 0 %; Eosinophils % (A) 0 %; HCT 43.1 % (34.0-46.0); HGB 13.3 gm/dL (11.4-16.0); Hypochromasia Slight; Lymphocytes # (A) 1.6 k/uL (1.0-4.8); Lymphocytes % (A) 14 %; MCH 31.2 pg (25.0-35.0); MCHC 30.8 g/dL (31.0-37.0); MCV 101.4 fL (80.0-100.0); Macrocytosis Slight; Mean Platelet Volume 7.1; Monocytes # (A) 0.9 k/uL (0-1.0); Monocytes % (A) 8 %; Neutrophils # (A) 9.1 k/uL (1.3-7.7); Neutrophils % (A) 77 %; Platelet Count 174 k/uL (150-450); RBC 4.25 m/uL (3.80-5.40); RDW 14.5 % (11.5-15.5); WBC 11.8 k/uL (3.8-10.6)
--- NOTE | 2020-03-29 15:17 | P.PN ---
Subjective Progress Note Date: 03/29/20 CHIEF COMPLAINT: Acute appendicitis HISTORY OF PRESENT ILLNESS: The patient is a 39-year-old female status post appendectomy, 03/27/2020. She reports feeling better today. Right lower quadrant down pain has improved. She is tolerating diet. No active head ache this morning. ROS: No reports of nausea and vomiting. No fevers or chills. No new chest pain. No productive sputum PHYSICAL EXAM: VITAL SIGNS: Reviewed CONSTITUTIONAL: Well developed and in no acute distress. EYES: Conjuctivae without sclera icterus. Extraocular movements grossly intact. HEAD, EARS, NOSE, THROAT: Moist buccal mucosa. Head is atraumatic, normocephalic. Hears conversational speech. No nasal drainage. NECK: Supple. No thyroidomegaly. RESPIRATORY: Non-labored respirations and equal bilateral excursions. CARDIOVASCULAR: Palpable 2+ radial pulses. Regular rate. Regular rhythm. ABDOMEN: No peritonitis. MUSCULOSKELETAL: No gross deformity of the lower extremities noted. No clubbing. No cyanosis. SKIN: Good skin turgor. Well perfused. NEUROLOGIC: Cranial nerves II through XII grossly intact. No focal or lateralizing signs. PSYCH: Appropriate affect. Alert and oriented to person, place and time. CLINICAL LABS: White blood cell count down from 22,600-11,800 ASSESSMENT: 1. Acute appendicitis PLAN: 1. Continue IV antibiotics 2. Diet as tolerated 3. Disposition in 24-48 hours pending resolution of leukocytosis Objective - Vital Signs Vital signs: Vital Signs Temp 97.7 F 03/29/20 14:44 Pulse 67 03/29/20 14:44 Resp 12 03/29/20 14:44 BP 95/52 03/29/20 14:44 Pulse Ox 96 03/29/20 14:44 Intake & Output 03/28/20 03/29/20 03/29/20 18:59 06:59 18:59 Intake Total 600 100 Balance 600 100 Intake: Intake, IV Titration 600 Amount Sodium Chloride 0.9% 1, 500 000 ml @ 110 mls/hr IV . Q9H6M JAY Rx#:[id number]-NS PMX 500 100 mg In Saline 1 100ml.bag @ 100 mls/hr IVPB Q8HR JAY Rx#:[id number] Other 100 Other: # Voids 1 - Labs CBC & Chem 7: 03/29/20 07:22 03/28/20 05:49 Labs: Abnormal Lab Results - Last 24 Hours (Table) 03/29/20 Range/Units 07:22 WBC 11.8 H (3.8-10.6) k/uL MCV 101.4 H (80.0-100.0) fL MCHC 30.8 L (31.0-37.0) g/dL Neutrophils # 9.1 H (1.3-7.7) k/uL Assessment and Plan (1) Migraines Current Visit: Yes Status: Acute Code(s): G43.909 - MIGRAINE, UNSP, NOT INTRACTABLE, WITHOUT STATUS MIGRAINOSUS SNOMED Code(s): 32269466 (2) Leukocytosis Current Visit: Yes Status: Acute Code(s): D72.829 - ELEVATED WHITE BLOOD CELL COUNT, UNSPECIFIED SNOMED Code(s): 581348657 (3) Acute appendicitis Current Visit: Yes Status: Acute Code(s): K35.80 - UNSPECIFIED ACUTE APPENDICITIS SNOMED Code(s): 13337665
[2020-03-29] MEDS: DIVALPROEX 500 MG TABLET.DR PO SCH (22:02)
[2020-03-29] MEDS: AMITRIPTYLINE HCL 50 MG TAB PO SCH (22:02)
[2020-03-29] MEDS: LEVOFLOXACIN 500MG-D5W PMX 500 MG in DEXTROSE/WATER 1 100ML.BAG IVPB SCH (22:13)
--- NOTE | 2020-03-29 22:39 | P.PN ---
Subjective Progress Note Date: 03/29/20 Principal diagnosis: Acute appendicitis status post laparoscopic appendectomy Patient is a 39-year-old female with a known history of brain aneurysm status post 5 stents and 2 coils, chronic headaches and on nerve block treatments, history of cervical cancer in 2013 status post LEEP procedure, hysterectomy in 2007 and endometriosis presents to ER with complaints of abdominal pain and abnormal CT scan done by her [employer] physician. Nuclear this year patient had exploratory lap prostatectomy and was found to have multiple precancerous lesions found in the pelvis. For the past 5 days patient has been having right lower quadrant abdominal pain. Patient was seen by her physician and presurgical CT in preparation for a repeat laparoscopic pro cedure to remove precancerous lesions. Patient had CT abdominal pelvis done yesterday, found to have concern for acute appendicitis. Patient was sent to ER. Denied any complaints of fever or chills. No nausea no vomiting. No diarrhea. No chest pain or shortness of breath. Denies any other recent illnesses. Patient was seen by general surgery and was taken to the OR for laparoscopic appendectomy. Patient is currently lying in the bed comfortably. Awake alert oriented x3. Abdominal discomfort of the surgical site but pain is controlled. Does have nausea. No episodes of vomiting. No fever no chills.. Lab data showed WBC 22.6, hemoglobin 15.6 and platelets 226 INR 1.1 Sodium 135, potassium 4.9, chloride 108 and BUN 9 and creatinine 0.73 blood sugar is 10 03/29/2020 Patient is currently lying in the bed comfortably. Abdominal pain is much improved. Leukocytosis is also improving with WBC count 11.8 today. Patient was started on diet and is tolerating very well. Did have a small bowel meant this morning. No complaints of fever or chills. No chest pain or shortness of breath. Patient is being continued on antibiotics in the form of levaquin and flagyl. Current medications reviewed. Objective - Vital Signs Vital signs: Vital Signs Temp 97.8 F 03/29/20 07:35 Pulse 75 03/29/20 07:35 Resp 14 03/29/20 07:35 BP 111/60 03/29/20 07:35 Pulse Ox 94 L 03/29/20 07:35 Intake & Output 03/28/20 03/29/20 03/29/20 18:59 06:59 18:59 Intake Total 600 Balance 600 Intake: Intake, IV Titration 600 Amount Sodium Chloride 0.9% 1, 500 000 ml @ 110 mls/hr IV . Q9H6M [facility] Rx#:[id number] metroNIDAZOLE-NS PMX 500 100 mg In Saline 1 100ml.bag @ 100 mls/hr IVPB Q8HR JAY Rx#:[id number] Other: # Voids 1 - Exam PHYSICAL EXAMINATION: Patient is lying in the bed comfortably, no acute distress, awake alert and oriented.. HEENT: Normocephalic. Neck is supple. Pupils reactive. Nostrils clear. Oral cavity is moist. Ears reveal no drainage. Neck reveals no JVD, carotid bruits, or thyromegaly. CHEST EXAMINATION: Trachea is central. Symmetrical expansion. Lung gaspar clear to auscultation and percussion. CARDIAC: Normal S1, S2 with no gallops. No murmurs ABDOMEN: Soft. mild tenderness at surgical sie. no guarding. Bowel sounds present. No organomegaly. No abdominal bruits. Extremities: reveal no edema. No clubbing or cyanosis Neurologically awake, alert, oriented x3 with well-coordinated movements. No focal deficits noted Skin: No rash or skin lesions. Psychiatric: Coperative. Nonsuicidal Musculoskeletal: No joint swelling or deformity. Normal range of motion. - Labs CBC & Chem 7: 03/29/20 07:22 03/28/20 05:49 Labs: Abnormal Lab Results - Last 24 Hours (Table) 03/29/20 Range/Units 07:22 WBC 11.8 H (3.8-10.6) k/uL MCV 101.4 H (80.0-100.0) fL MCHC 30.8 L (31.0-37.0) g/dL Neutrophils # 9.1 H (1.3-7.7) k/uL Assessment and Plan Assessment: Acute appendicitis status post laparoscopic appendectomy postoperative day 2 Leukocytosis likely reactive. Rule out infection. improving. Endometriosis History of exploratory laparotomy and removal of multiple precancerous lesions in the pelvis in August 2019 History of cervical cancer in 2013 Hysterectomy in 2007 Chronic headaches and on nerve block treatments History of brain aneurysm status post 5 stents and 2 coils placement Chronic pain DVT prophylaxis Heparin subcu Plan: Patient will be continued on pain management, bowel regimen and IV hydration. Encourage incentive spirometry. Continue with empiric antibiotics in the form of Levaquin and Flagyl due to significant Leukocytosis. Follow-up culture reports. Monitor CBC daily due to leukocytosis. Further recommendations based on the clinical course. We will continue to follow with you. Anticipated discharge in the next 24 hours. Patient can be continued on antibiotic course upon discharge. Time with Patient: Greater than 30
[2020-03-30] MEDS: SODIUM CHLORIDE 0.9% 1,000 ML IV SCH ×2 (02:10→07:28)
[2020-03-30 06:56] LABS: Basophils % (A) 0 %; Eosinophils % (A) 0 %; HCT 43.1 % (34.0-46.0); HGB 13.5 gm/dL (11.4-16.0); Hypochromasia Slight; Lymphocytes # (A) 3.8 k/uL (1.0-4.8); Lymphocytes % (A) 36 %; MCH 31.7 pg (25.0-35.0); MCHC 31.2 g/dL (31.0-37.0); MCV 101.4 fL (80.0-100.0); Macrocytosis Slight; Mean Platelet Volume 7.3; Monocytes # (A) 0.8 k/uL (0-1.0); Monocytes % (A) 8 %; Neutrophils # (A) 5.6 k/uL (1.3-7.7); Neutrophils % (A) 54 %; Platelet Count 175 k/uL (150-450); RBC 4.25 m/uL (3.80-5.40); RDW 14.8 % (11.5-15.5); WBC 10.4 k/uL (3.8-10.6)
[2020-03-30 07:15] LABS: Poikilocytosis (M) Present
[2020-03-30 07:24] VITALS: BP 99/53; PULSE 63; RESP 12; TEMP 97.9
[2020-03-30] MEDS: ENOXAPARIN 40 MG/0.4 ML SYRINGE SQ SCH (07:24)
[2020-03-30] MEDS: tiZANidine 4 MG TAB PO SCH (07:25)
[2020-03-30] MEDS: TOPIRAMATE 25 MG TAB PO SCH (07:25)
[2020-03-30] MEDS: PROPRANOLOL 20 MG TAB PO SCH (07:25)
[2020-03-30] MEDS ORDERED: metroNIDAZOLE 500 MG TAB PO SCH (08:00)
--- NOTE | 2020-03-30 13:30 | P.DS ---
Providers Date of admission: 03/27/20 19:09 Expected date of discharge: 03/30/20 Attending physician: Yusuf Weiss Consults: 03/27/20 22:40 Consult Physician Routine Consulting Provider: Kati Schwarz Consult Reason/Comments: Medical management Do you want consulting provider notified?: Yes Primary care physician: Ty Moctezuma - Discharge Diagnosis(es) (1) Migraines Status: Acute (2) Leukocytosis Status: Acute (3) Acute appendicitis Status: Acute Hospital Course: CHIEF COMPLAINT: Acute appendicitis HISTORY OF PRESENT ILLNESS: The patient is a 39-year-old female status post appendectomy, 03/27/2020. She is tolerating diet. She is passing flatus. ROS: No fevers or chills. No new chest pain. No productive sputum PHYSICAL EXAM: VITAL SIGNS: Reviewed CONSTITUTIONAL: Well developed and in no acute distress. EYES: Conjuctivae without sclera icterus. Extraocular movements grossly intact. HEAD, EARS, NOSE, THROAT: Moist buccal mucosa. Head is atraumatic, normocephalic. Hears conversational speech. No nasal drainage. RESPIRATORY: Non-labored respirations and equal bilateral excursions. CARDIOVASCULAR: Palpable 2+ radial pulses. ABDOMEN: No peritonitis. Soft. MUSCULOSKELETAL: No gross deformity of the lower extremities noted. No clubbing. No cyanosis. SKIN: Good skin turgor. Well perfused. NEUROLOGIC: Cranial nerves II through XII grossly intact. No focal or lateralizing signs. PSYCH: Appropriate affect. Alert and oriented to person, place and time. CLINICAL LABS: White blood cell count down from 22,600-11,800, now 10.4, and normal ASSESSMENT: 1. Acute appendicitis with moderate leukocytosis PLAN: 1. Patient stable for discharge as WBC improved now normal. Patient Condition at Discharge: Stable Plan - Discharge Summary Discharge Rx Participant: No New Discharge Prescriptions: Continue tiZANidine HCL 4 mg PO BID Ketorolac Tromethamine 10 mg PO Q6H PRN PRN Reason: Migraine Headache estradioL [Estrace] 0.5 mg PO DAILY Divalproex [Depakote] 1,000 mg PO HS Amitriptyline HCl 50 mg PO HS Propranolol [Inderal] 20 mg PO BID hydrOXYzine HCL [Atarax] 25 mg PO HS hydrOXYzine HCL 50 mg PO DAILY danazoL [Danazol] 200 mg PO BID Topiramate [Topamax] 50 mg PO BID Estradiol Cream [Estrace Cream 0.01%] 1 applicator VAGINAL TUTH Discharge Medication List Amitriptyline HCl 50 mg PO HS 07/15/19 [History] Divalproex [Depakote] 1,000 mg PO HS 07/15/19 [History] Ketorolac Tromethamine 10 mg PO Q6H PRN 07/15/19 [History] estradioL [Estrace] 0.5 mg PO DAILY 07/15/19 [History] tiZANidine HCL 4 mg PO BID 07/15/19 [History] Estradiol Cream [Estrace Cream 0.01%] 1 applicator VAGINAL TUTH 03/27/20 [History] Propranolol [Inderal] 20 mg PO BID 03/27/20 [History] Topiramate [Topamax] 50 mg PO BID 03/27/20 [History] danazoL [Danazol] 200 mg PO BID 03/27/20 [History] hydrOXYzine HCL 50 mg PO DAILY 03/27/20 [History] hydrOXYzine HCL [Atarax] 25 mg PO HS 03/27/20 [History] Follow up Appointment(s)/Referral(s): Ty Moctezuma DO [Primary Care Provider] - 1-2 days Yusuf Weiss MD [STAFF PHYSICIAN] - 1 Week Patient Instructions/Handouts: Laparoscopic Appendectomy (DC) Discharge Disposition: HOME SELF-CARE
[2020-03-30] MEDS ORDERED: LEVOFLOXACIN 500 MG TAB PO SCH (22:00)
== END 2020-03-30 14:32 | disposition home or self-care (01) ==
LOC: EC 17:02 → 1SOBS 19:09
PROVIDERS: ADMIT Surgery; ATTEND Surgery
DX: K35.80 Unspecified acute appendicitis (principal); G43.909 Migraine, unspecified, not intractable, without status migrainosus; N80.9 Endometriosis, unspecified; K59.00 Constipation, unspecified; K50.90 Crohn's disease, unspecified, without complications; I67.1 Cerebral aneurysm, nonruptured; F41.9 Anxiety disorder, unspecified; F32.9 Major depressive disorder, single episode, unspecified; F43.10 Post-traumatic stress disorder, unspecified; G47.33 Obstructive sleep apnea (adult) (pediatric); E07.9 Disorder of thyroid, unspecified; Z03.818 Encounter for observation for suspected exposure to other biological agents ruled out; Z98.890 Other specified postprocedural states; Z79.899 Other long term (current) drug therapy; Z79.1 Long term (current) use of non-steroidal anti-inflammatories (NSAID); Z79.890 Hormone replacement therapy; Z88.1 Allergy status to other antibiotic agents; Z88.7 Allergy status to serum and vaccine; Z91.041 Radiographic dye allergy status; Z85.41 Personal history of malignant neoplasm of cervix uteri; Z90.710 Acquired absence of both cervix and uterus; Z95.828 Presence of other vascular implants and grafts; Z86.19 Personal history of other infectious and parasitic diseases; Z79.52 Long term (current) use of systemic steroids; Z82.49 Family history of ischemic heart disease and other diseases of the circulatory system; Z83.49 Family history of other endocrine, nutritional and metabolic diseases
CPT/HCPCS: 44970; 96374; 96375; 99284; 36415; 88304; 80048 ×2; 85025 ×4; 85610; 85730; 81025; G0378 ×4; U0003; J2543; J2250; J2270 ×2; J1100; J2710; J2405; J1956 ×2; J2001; J1650 ×3; J3010; J1885 ×2; J0330; J2704; J1170

== ENCOUNTER → 2020-03-27 | Outpatient (CLI) | payer MEDICARE, OTHER ==
--- NOTE | 2020-03-27 15:37 | CT ---
EXAMINATION TYPE: CT abdomen pelvis wo/w con DATE OF EXAM: 03/27/2020 COMPARISON: 07/15/2019 HISTORY: RLQ pain CT DLP: 1140 mGycm Automated exposure control for dose reduction was used. CONTRAST: CT scan of the abdomen pelvis is performed without and with IV Contrast, patient injected with 100 mL of Isovue 300. FINDINGS- LUNG BASES-subsegmental changes involving the lung bases most typical of atelectasis. LIVER/GB- No gross abnormality is appreciated. PANCREAS- No gross abnormality is seen. SPLEEN- No gross abnormality is seen. ADRENALS- No gross abnormality is seen. KIDNEYS/BLADDER- no hydronephrosis nephrolithiasis or renal mass. BOWEL-appendix measures 8 mm and is nondilated. No significant inflammatory changes seen. Appendiciti s or mucosal lesion cannot be excluded. Report called to referring clinician. Extensive retained feca l debris throughout the colon correlate for constipation.. LYMPH NODES- No greater than 1cm abdominal or pelvic lymph nodes areappreciated. OSSEOUS STRUCTURES- No significant abnormality is seen. OTHER- low density within the vaginal cuff posthysterectomy is reduced in size relative to the prior exam. Somewhat prominent. Could be correlated clinically necessary with ultrasound. IMPRESSION- 1. Dilated appendix measuring 8 mm without evidence of significant inflammatory change. Early appendi citis cannot be excluded. Report called to referring clinician by telephone. 2. Extensive retained debris throughout the colon correlate for constipation 3. No evidence of renal stone, hydronephrosis or renal mass. 4. Cystic change previously seen near the hysterectomy site of appears less well-defined on today's e xam and reduced in size.
== END | disposition home or self-care (01) ==
LOC: RADCTMAIN 14:46
PROVIDERS: ATTEND Obstetrics & Gynecology
DX: K38.0 Hyperplasia of appendix (principal); Z90.710 Acquired absence of both cervix and uterus
CPT/HCPCS: 74178; Q9967

== ENCOUNTER → 2020-04-28 | Outpatient (CLI) | payer MEDICARE, OTHER ==
--- NOTE | 2020-04-29 15:34 | XR ---
EXAMINATION TYPE: XR facial bones complete DATE OF EXAM: 04/28/2020 COMPARISON: NONE HISTORY: Pain in forehead and right side of face after fall 2 days ago TECHNIQUE: 5 views of the facial bones were obtained FINDINGS: Aneurysm coil within the sella turcica. The paranasal sinuses are well aerated. No evidence of displaced fracture. There is a 4 mm lucency around the right mandibular second molar nerve roots. IMPRESSION: 1. No radiographic evidence of displaced facial bone fracture. 2. Periapical abscess of the right mandibular second molar.
--- NOTE | 2020-04-29 15:36 | XR ---
EXAMINATION TYPE: XR wrist complete RT DATE OF EXAM: 04/28/2020 CLINICAL HISTORY: Carpal and metacarpal pain after fall 2 days ago TECHNIQUE: Frontal, lateral and oblique images of the right wrist are obtained. COMPARISON: None FINDINGS: There is no acute fracture/dislocation evident in the right wrist. The joint spaces in th e right wrist appear within normal limits. The overlying soft tissue appears unremarkable. IMPRESSION: There is no acute fracture or dislocation in the right wrist.
--- NOTE | 2020-04-29 15:37 | XR ---
EXAMINATION TYPE: XR knee complete RT DATE OF EXAM: 04/28/2020 CLINICAL HISTORY: Pain after fall 2 days ago TECHNIQUE: Three views of the right knee are obtained. COMPARISON: None. FINDINGS: There is no acute fracture/dislocation evident in the right knee. The tri-compartment lala nt spaces appear within normal limits. The overlying soft tissue appears unremarkable. IMPRESSION: There is no acute fracture or dislocation in the right knee.
== END | disposition home or self-care (01) ==
LOC: RADXRYALE 15:56
PROVIDERS: ATTEND Physician Assistant Medical
DX: K04.7 Periapical abscess without sinus (principal); M27.2 Inflammatory conditions of jaws; M25.531 Pain in right wrist; M79.641 Pain in right hand; M25.561 Pain in right knee
CPT/HCPCS: 70150

== ENCOUNTER 2024-03-03 16:54 | Emergency (ER) | payer MEDICARE ==
--- NOTE | 2024-03-03 17:17 | ED ---
General Adult HPI - General Stated complaint: constipation Time Seen by Provider: 03/03/24 17:16 Source: patient Mode of arrival: ambulatory Limitations: no limitations - History of Present Illness Initial comments: 43-year-old female presenting with chief complaint of constipation. States that she has not been able have a bowel movement for 3 weeks. Admits to generalized abdominal pain and back pain. Also admits to headache. Had 1 episode of vomiting today. She has been taking stool softeners and MiraLAX without success. She does follow with a GI specialist. - Related Data Home Medications Medication Instructions Recorded Confirmed Amitriptyline HCl 50 mg PO HS 07/15/19 03/27/20 Divalproex [Depakote] 1,000 mg PO HS 07/15/19 03/27/20 Ketorolac Tromethamine 10 mg PO Q6H PRN 07/15/19 03/27/20 estradioL [Estrace] 0.5 mg PO DAILY 07/15/19 03/27/20 tiZANidine HCL 4 mg PO BID 07/15/19 03/27/20 Estradiol Cream [Estrace Cream 1 applicator VAGINAL TUTH 03/27/20 03/27/20 0.01%] Propranolol [Inderal] 20 mg PO BID 03/27/20 03/27/20 Topiramate [Topamax] 50 mg PO BID 03/27/20 03/27/20 danazoL [Danazol] 200 mg PO BID 03/27/20 03/27/20 hydrOXYzine HCL 50 mg PO DAILY 03/27/20 03/27/20 hydrOXYzine HCL [Atarax] 25 mg PO HS 03/27/20 03/27/20 Allergies Allergy/AdvReac Type Severity Reaction Status Date / Time ceftriaxone [From Rocephin] Allergy Rash/Hives Verified 03/03/24 17:57 Iodinated Contrast Media Allergy Rash/Hives Verified 03/03/24 17:57 Influenza Virus Vaccines AdvReac Nausea & Verified 03/03/24 17:57 Vomiting Review of Systems ROS Statement: Those systems with pertinent positive or pertinent negative responses have been documented in the HPI. ROS Other: All systems not noted in ROS Statement are negative. Past Medical History Additional Past Medical History / Comment(s): brain aneurysm 06/2013, endometriosis, cervical cancer 2013, Chrohns 2005, shingles History of Any Multi-Drug Resistant Organisms: None Reported Past Surgical History: Hysterectomy Additional Past Surgical History / Comment(s): brain surgery 5 stents and two coils 06/2013, hysterectomy 2007. abdominal lap. biopsys EGD/colonoscopy Past Anesthesia/Blood Transfusion Reactions: No Reported Reaction Past Psychological History: Anxiety, Depression, PTSD Smoking Status: Never smoker Past Alcohol Use History: Rare Past Drug Use History: None Reported Additional Drug Use History / Comment(s): patient reports trying marijuana for pain relief in the past to no effect. - Past Family History Father Additional Family Medical History / Comment(s): brain aneurysm 04/2019 passed Mother Family Medical History: No Reported History Brother(s) Family Medical History: Thyroid Disorder General Exam - General Exam Comments Initial Comments: Visual Physical Exam Vital signs reviewed General: Well-appearing, nontoxic, no acute distress. Head: Normocephalic, atraumatic Eyes: PERRLA, EOMI ENT: Airway patent Chest: Nonlabored breathing Skin: No visual rash, normal skin tone Neuro: Alert and oriented 3 Musculoskeletal: No gross abnormalities Limitations: no limitations General appearance: alert, in no apparent distress Head exam: Present: atraumatic, normocephalic Eye exam: Present: normal appearance, EOMI Neck exam: Present: normal inspection. Absent: meningismus Respiratory exam: Absent: respiratory distress Cardiovascular Exam: Present: regular rate GI/Abdominal exam: Present: soft, distended, tenderness (Vague discomfort). Absent: guarding, rebound, rigid Neurological exam: Present: alert, oriented X3 Psychiatric exam: Present: normal affect, normal mood Skin exam: Present: warm, dry Course Vital Signs 03/03/24 03/04/24 17:55 00:09 Temperature 97.6 F 97.5 F L Pulse Rate 105 H 89 Respiratory 16 17 Rate Blood Pressure 126/85 121/80 O2 Sat by Pulse 97 98 Oximetry Medical Decision Making - Medical Decision Making Was pt. sent in by a medical professional or institution (, PA, PRINCIPAL IOS DEVELOPER, urgent care, hospital, or [place] health care facility...) When possible be specific @ -No Did you speak to anyone other than the patient for history (EMS, parent, family, police, friend...)? What history was obtained from this source @ -No Did you review nursing and triage notes (agree or disagree)? Why? @ -I reviewed and agree with nursing and triage notes Were old charts reviewed (outside hosp., previous admission, EMS record, old EKG, old radiological studies, urgent care reports/EKG's, [place] health care facility records)? Report findings @ -No old charts were reviewed Differential Diagnosis (chest pain, altered mental status, abdominal pain women, abdominal pain men, vaginal bleeding, weakness, fever, dyspnea, syncope, headache, dizziness, GI bleed, back pain, seizure, CVA, palpatations, mental health, musculoskeletal)? @ -MDM Differential Abdominal Pain Women: Appendicitis, Cholecystitis, diverticulosis, ischemic bowel, pancreatitis, hepatitis, UTI, gastroenteritis, AAA, incarcerated hernia, bowel obstruction, constipation, inflammatory bowel, hepatitis, peptic ulcer disease, splenic infarction, perforated viscus, vulvitis, ovarian torsion, PID, kidney stone, p lacenta abruption... This is not meant to be an all-inclusive list EKG interpreted by me (3pts min.). @ -As above X-rays interpreted by me (1pt min.). @ -KUB x-ray shows large amount of stool in the rectum and throughout the colon CT interpreted by me (1pt min.). @ -None done U/S interpreted by me (1pt. min.). @ -None done What testing was considered but not performed or refused? (CT, X-rays, U/S, labs)? Why? @ -None What meds were considered but not given or refused? Why? @ -None Did you discuss the management of the patient with other professionals (professionals i.e. , PA, PRINCIPAL IOS DEVELOPER, lab, RT, psych nurse, child welfare social worker, precipitator, teacher, examining officer, supervisor case loading)? Give summary @ -No Was smoking cessation discussed for >3mins.? @ -No Was critical care preformed (if so, how long)? @ -No Were there social determinants of health that impacted care today? How? (Homelessness, low income, unemployed, alcoholism, drug addiction, transportation, low edu. Level, literacy, decrease access to med. care, ch[facility], rehab)? @ -No Was there de-escalation of care discussed even if they declined (Discuss DNR or withdrawal of care, Hospice)? DNR status @ -No What co-morbidities impacted this encounter? (DM, HTN, Smoking, COPD, CAD, Cancer, CVA, ARF, Chemo, Hep., AIDS, mental health diagnosis, sleep apnea, morbid obesity)? @ -None Was patient admitted / discharged? Hospital course, mention meds given and route, prescriptions, significant lab abnormalities, going to OR and other pertinent info. @ -43-year-old female presenting with chief complaint of constipation. She was initially evaluated as a quick note by myself and was later brought back to a room where I resumed her care. KUB x-ray shows moderate amount of stool throughout the colon. Patient is given an enema and does have a large bowel movement. She is experiencing some crampy abdominal pain which I reassured her was to be expected. She was concerned that she was starting to experience some right upper quadrant pain and labs were obtained. Mildly elevated ALT of 43 but otherwise no abnormalities to suggest acute process. On reassessment she is resting comfortably showing no acute signs of distress. She is educated on today's findings and on supportive management of constipation at home. Discharged. Follow-up with PCP. Report back to ER with any new or worsening symptoms. Discussed return parameters and answered all questions. Patient conveyed verbal understanding and agreed to the plan. I discussed this case in detail with my attending Dr. Saldaña Undiagnosed new problem with uncertain prognosis? @ -No Drug Therapy requiring intensive monitoring for toxicity (Heparin, Nitro, Insulin, Cardizem)? @ -No Were any procedures done? @ -No Diagnosis/symptom? @ -Constipation Acute, or Chronic, or Acute on Chronic? @ -Acute Uncomplicated (without systemic symptoms) or Complicated (systemic symptoms)? @ -complicated Side effects of treatment? @ -No Exacerbation, Progression, or Severe Exacerbation? @ -No Poses a threat to life or bodily function? How? (Chest pain, USA, NC, pneumonia, PE, COPD, DKA, ARF, appy, cholecystitis, CVA, Diverticulitis, Homicidal, Suicidal, threat to staff... and all critical care pts) @ -Unlikely - Lab Data Result diagrams: 03/03/24 21:30 03/03/24 22:54 Lab Results 03/03/24 03/03/24 Range/Units 21:30 22:54 WBC 8.4 (3.8-10.6) k/uL RBC 4.49 (3.80-5.40) m/uL Hgb 14.6 (11.4-16.0) gm/dL Hct 45.7 (34.0-46.0) % MCV 101.8 H (80.0-100.0) fL MCH 32.4 (25.0-35.0) pg MCHC 31.9 (31.0-37.0) g/dL RDW 12.3 (11.5-15.5) % Plt Count 178 (150-450) k/uL MPV 8.1 Neutrophils % 42 % Lymphocytes % 45 % Monocytes % 6 % Eosinophils % 4 % Basophils % 1 % Neutrophils # 3.5 (1.3-7.7) k/uL Lymphocytes # 3.8 (1.0-4.8) k/uL Monocytes # 0.5 (0-1.0) k/uL Eosinophils # 0.3 (0-0.7) k/uL Basophils # 0.0 (0-0.2) k/uL Sodium 142 (137-145) mmol/L Potassium 4.1 (3.5-5.1) mmol/L Chloride 112 H (98-107) mmol/L Carbon Dioxide 23 (22-30) mmol/L Anion Gap 7 mmol/L BUN 15 (7-17) mg/dL Creatinine 0.77 (0.52-1.04) mg/dL Est GFR (CKD-EPI)AfAm >90 (>60 ml/min/1.73 sqM) Est GFR (CKD-EPI)NonAf >90 (>60 ml/min/1.73 sqM) Glucose 78 (74-99) mg/dL Calcium 9.2 (8.4-10.2) mg/dL Total Bilirubin 0.4 (0.2-1.3) mg/dL AST 34 (14-36) U/L ALT 43 H (4-34) U/L Alkaline Phosphatase 65 (38-126) U/L Total Protein 7.4 (6.3-8.2) g/dL Albumin 4.1 (3.5-5.0) g/dL Amylase 48 (30-110) U/L Lipase 105 (23-300) U/L Disposition Clinical Impression: Constipation Disposition: HOME SELF-CARE Condition: Good Instructions (If sedation given, give patient instructions): Constipation (ED), High Fiber Diet (ED) Additional Instructions: Follow-up with PCP and GI. Report back to ER with any new or worsening symptoms. Take Motrin and Tylenol as needed. Continue taking stool softeners and MiraLAX. Is patient prescribed a controlled substance at d/c from ED?: No Referrals: Kaleigh Beth PAC [Primary Care Provider] - 1-2 days Time of Disposition: 23:49
[2024-03-03] MEDS: ONDANSETRON ODT 4 MG TAB PO STA (18:04)
--- NOTE | 2024-03-03 18:34 | XR ---
EXAMINATION TYPE: XR KUB DATE OF EXAM: 03/03/2024 6:15 PM CLINICAL INDICATION:Female, 43 years old with history of Constipation; [facility] COMPARISON: 03/27/2020. TECHNIQUE: One radiographic view of the abdomen was obtained. FINDINGS: Large amount stool in the rectum and colon. The bowel gas pattern is nonspecific without di lated loops of small or large bowel. . Fecal material and gas are demonstrated throughout the colon a nd rectum. There is no evidence for organomegaly or pneumoperitoneum. The osseous structures are intact. No ab normal calcifications are present. IMPRESSION: Large amount stool in the rectum and throughout the colon.
[2024-03-03] MEDS: SODIUM CHLORIDE 0.9% 1,000 ML IV ONE (21:38)
[2024-03-03] MEDS: KETOROLAC 15 MG/ML 1 ML VIAL IVP STA (21:39)
[2024-03-03] MEDS: MORPHINE SULFATE 4 MG/ML SYRINGE IVP STA (22:42)
[2024-03-03 23:04] LABS: Basophils % (A) 1 %; Eosinophils # (A) 0.3 k/uL (0-0.7); Eosinophils % (A) 4 %; HCT 45.7 % (34.0-46.0); HGB 14.6 gm/dL (11.4-16.0); Lymphocytes # (A) 3.8 k/uL (1.0-4.8); Lymphocytes % (A) 45 %; MCH 32.4 pg (25.0-35.0); MCHC 31.9 g/dL (31.0-37.0); MCV 101.8 fL (80.0-100.0); Mean Platelet Volume 8.1; Monocytes # (A) 0.5 k/uL (0-1.0); Monocytes % (A) 6 %; Neutrophils # (A) 3.5 k/uL (1.3-7.7); Neutrophils % (A) 42 %; Platelet Count 178 k/uL (150-450); RBC 4.49 m/uL (3.80-5.40); RDW 12.3 % (11.5-15.5); WBC 8.4 k/uL (3.8-10.6)
[2024-03-03 23:06] LABS: Chloride 112 mmol/L (98-107)
[2024-03-03 23:36] LABS: ALT 43 U/L (4-34); AST 34 U/L (14-36); African American GFR (CKD) >90 (>60 ml/min/1.73 sqM); Albumin 4.1 g/dL (3.5-5.0); Alkaline Phosphatase 65 U/L (38-126); Amylase 48 U/L (30-110); Anion Gap 7 mmol/L; Blood Urea Nitrogen 15 mg/dL (7-17); Calcium 9.2 mg/dL (8.4-10.2); Carbon Dioxide 23 mmol/L (22-30); Glucose 78 mg/dL (74-99); Lipase 105 U/L (23-300); Non-African American GFR(CKD) >90 (>60 ml/min/1.73 sqM); Potassium 4.1 mmol/L (3.5-5.1); Sodium 142 mmol/L (137-145); Total Bilirubin 0.4 mg/dL (0.2-1.3); Total Protein 7.4 g/dL (6.3-8.2)
[2024-03-04] MEDS ORDERED: KETOROLAC 15 MG/ML 1 ML VIAL IVP STA
[2024-03-04 00:49] VITALS: BP 121/80; PULSE 89; RESP 17; TEMP 97.5
== END 2024-03-04 00:09 | disposition home or self-care (01) ==
LOC: EC 16:54
DX: K59.00 Constipation, unspecified (principal); Z88.8 Allergy status to other drugs, medicaments and biological substances
CPT/HCPCS: 36415; 80053; 82150; 83690; 85025; 74018; 99283; 96374; 96375; 96361 ×2; J2270; J1885

== ENCOUNTER 2024-04-20 14:25 | Emergency (ER) | payer MEDICARE ==
[2024-04-20] MEDS ORDERED: HYDROmorphone 0.5 MG/0.5 ML SYRINGE ONE (15:37)
[2024-04-20] MEDS ORDERED: BACITRACIN OINT 1 EACH PACKET TOPICAL ONE (15:45)
[2024-04-20] MEDS ORDERED: SODIUM CHLORIDE 0.9% 1,000 ML BAG ONE (15:45)
--- NOTE | 2024-05-14 08:01 | CT ---
Patient: April Bailon Ordering Physician: Unknown, Unknown ID: [id number] Phone, Pager: Phone: N/A Pager: N/A : 1980 Age/Gender: 44Y, F Primary Location: N/A Procedure: CT brain cspine wo con Study Date: 04/20/2024 3:37:00 PM EXAMINATION TYPE: CT brain cspine wo con DATE OF EXAM: 04/20/2024 COMPARISON: None HISTORY: 44-year-old female fall, hit face on ground, pain CT DLP: 1028.5 mGycm Automated exposure control for dose reduction was used. Technique: Examination of the head was done in axial plane without intravenous contrast. Coronal and sagittal reconstructions performed. CT of the cervical spine was obtained in axial plane without intravenous injection of contrast mater ial. Coronal and sagittal reformatted images were obtained from the axial views for evaluation of f ractures, spinal alignment and canal. FINDINGS: Head: There is no evidence of acute intracranial hemorrhage, acute ischemic changes, mass, mass-effect, or extra-axial fluid collection. There is no effacement of cerebral sulci or basal subarachnoid cister ns. There is no hydrocephalus. There is no midline shift. Lovelace-white matter distinction is preserv ed. There is a left ICA stent noted. Mastoid air cells are well pneumatized. No calvarial fracture. Facial bones reported separately. Cervical spine: Scattered mild facet arthropathy. Mild uncovertebral joint arthropathy lower cervical spine. The alig nment of the cervical spine is normal on coronal and reformatted images. There is no cranial vertebra l abnormality. Fracture of the cervical spine is not seen. There is no evidence of focal disk herniat ion. There is no central spinal canal stenosis. Sagittal and coronal reformatted images confirm above findings. COMBINED IMPRESSION: 1. No acute intracranial abnormality seen. Left ICA stent. 2. No acute fracture or malalignment of the cervical spine. 3. Facial bones reported separately.
--- NOTE | 2024-05-14 08:01 | CT ---
Patient: April Bailon Ordering Physician: Unknown, Unknown ID: [id number] Phone, Pager: Phone: N/A Pager: N/A : 1980 Age/Gender: 44Y, F Primary Location: N/A Procedure: CT facial bones wo con Study Date: 04/20/2024 3:37:00 PM EXAMINATION TYPE: CT facial bones wo con DATE OF EXAM: 04/20/2024 COMPARISON: None HISTORY: 44-year-old female fall, hit face on ground, pain TECHNIQUE: Contiguous axial scanning of the facial bones without IV contrast. Coronal and sagittal re constructions performed. CT DLP: 1028.5 mGycm Automated exposure control for dose reduction was used. FINDINGS: Mild degenerative change of the TMJs. The mandible appears intact. Pterygoid plates and zygomatic arc hes are intact. There is rightward nasal septal deviation. Slight angulation deformity of the right nasal bone but wi thout any overlying soft tissue swelling. Moderate to severe opacification throughout the right maxillary sinus but no orbital or facial bone f racture seen. Globes appear symmetric. Large dental caries involving the second right mandibular molar and a smaller one on the left. IMPRESSION: 1. SLIGHT ANGULATION DEFORMITY OF THE RIGHT NASAL BONE IS AGE INDETERMINATE GIVEN LACK OF OVERLYING S OFT TISSUE SWELLING. CORRELATE FOR ANY POINT TENDERNESS HERE TO EXCLUDE A SUBTLE NONDISPLACED FRACTUR E. CORRELATE FOR HISTORY OF ANY PRIOR INJURY. 2. SEVERE CHRONIC RIGHT MAXILLARY SINUS DISEASE. MILD BILATERAL TMJ OA. 3. Large dental caries involving the second right mandibular molar and a smaller one on the left.
== END 2024-04-20 18:20 | disposition home or self-care (01) ==
LOC: EC 14:25
CPT/HCPCS: 70450; 70486; 72125; 93005; 96360; 96361; 99284

== ENCOUNTER 2024-05-27 13:49 | Emergency (ER) | payer MEDICARE ==
[2024-05-27 15:14] LABS: Color,Urine Dark Orange
[2024-05-27 15:15] LABS: Appearance,Urine Clear (Clear)
[2024-05-27] MEDS: KETOROLAC 15 MG/ML 1 ML VIAL IM STA (15:17)
[2024-05-27 15:26] LABS: Bacteria,Urine Rare /hpf; Mucus,Urine Rare /hpf; RBC,Urine 16 /hpf (0-5); Squamous Epithelial Cell,Urine 4 /hpf (0-4); WBC,Urine 36 /hpf (0-5)
--- NOTE | 2024-05-27 15:37 | ED ---
Female Urogenital HPI - General Chief complaint: Urogenital Stated complaint: Abd pain,Poss UTI Time Seen by Provider: 05/27/24 14:36 Source: patient Mode of arrival: ambulatory Limitations: no limitations - History of Present Illness Initial comments: 44-year-old female presenting with chief complaint of dysuria. For the last 4 days or so she has had burning with urination as well as generalized lower abdominal discomfort. She has now developed some left-sided lower back pain as well. No fevers. No nausea or vomiting. She has been taking [id number] Azo for her symptoms. She does have a history of UTIs. She admits to diarrhea. - Related Data Home Medications Medication Instructions Recorded Confirmed Amitriptyline HCl 50 mg PO HS 07/15/19 03/27/20 Divalproex [Depakote] 1,000 mg PO HS 07/15/19 03/27/20 Ketorolac Tromethamine 10 mg PO Q6H PRN 07/15/19 03/27/20 estradioL [Estrace] 0.5 mg PO DAILY 07/15/19 03/27/20 tiZANidine HCL 4 mg PO BID 07/15/19 03/27/20 Estradiol Cream [Estrace Cream 1 applicator VAGINAL TUTH 03/27/20 03/27/20 0.01%] Propranolol [Inderal] 20 mg PO BID 03/27/20 03/27/20 Topiramate [Topamax] 50 mg PO BID 03/27/20 03/27/20 danazoL [Danazol] 200 mg PO BID 03/27/20 03/27/20 hydrOXYzine HCL 50 mg PO DAILY 03/27/20 03/27/20 hydrOXYzine HCL [Atarax] 25 mg PO HS 03/27/20 03/27/20 Previous Rx's Medication Instructions Recorded Sulfamethox-Tmp 800-160Mg [Bactrim 1 tab PO Q12HR 14 Days #28 tab 05/27/24 DS 800-160 mg] Allergies Allergy/AdvReac Type Severity Reaction Status Date / Time ceftriaxone [From Rocephin] Allergy Rash/Hives Verified 05/27/24 13:52 Iodinated Contrast Media Allergy Rash/Hives Verified 05/27/24 13:52 Influenza Virus Vaccines AdvReac Nausea & Verified 05/27/24 13:52 Vomiting Review of Systems ROS Statement: Those systems with pertinent positive or pertinent negative responses have been documented in the HPI. ROS Other: All systems not noted in ROS Statement are negative. Past Medical History Additional Past Medical History / Comment(s): brain aneurysm 06/2013, endometriosis, cervical cancer 2013, Chrohns 2005, shingles History of Any Multi-Drug Resistant Organisms: None Reported Past Surgical History: Hysterectomy Additional Past Surgical History / Comment(s): brain surgery 5 stents and two coils 06/2013, hysterectomy 2007. abdominal lap. biopsys EGD/colonoscopy Past Anesthesia/Blood Transfusion Reactions: No Reported Reaction Past Psychological History: Anxiety, Depression, PTSD Smoking Status: Never smoker Past Alcohol Use History: Rare Past Drug Use History: None Reported - Past Family History Father Additional Family Medical History / Comment(s): brain aneurysm 04/2019 passed Mother Family Medical History: No Reported History Brother(s) Family Medical History: Thyroid Disorder General Exam Limitations: no limitations General appearance: alert, in no apparent distress Head exam: Present: atraumatic, normocephalic Eye exam: Present: normal appearance, EOMI Neck exam: Present: normal inspection. Absent: meningismus Respiratory exam: Absent: respiratory distress Cardiovascular Exam: Present: regular rate GI/Abdominal exam: Present: soft, tenderness (Diffuse). Absent: distended, guarding, rebound, rigid Back exam: Present: CVA tenderness (L). Absent: CVA tenderness (R) Neurological exam: Present: alert, oriented X3 Psychiatric exam: Present: normal affect, normal mood Skin exam: Present: warm, dry Course Vital Signs 05/27/24 13:49 Temperature 97.5 F L Pulse Rate 82 Respiratory 16 Rate Blood Pressure 91/53 O2 Sat by Pulse 96 Oximetry Medical Decision Making - Medical Decision Making Was pt. sent in by a medical professional or institution (, PA, GRAIN MIXER, urgent care, hospital, or long term...) When possible be specific @ -No Did you speak to anyone other than the patient for history (EMS, parent, family, police, friend...)? What history was obtained from this source @ -No Did you review nursing and triage notes (agree or disagree)? Why? @ -I reviewed and agree with nursing and triage notes Were old charts reviewed (outside hosp., previous admission, EMS record, old EKG, old radiological studies, urgent care reports/EKG's, long term records)? Report findings @ -No old charts were reviewed Differential Diagnosis (chest pain, altered mental status, abdominal pain women, abdominal pain men, vaginal bleeding, weakness, fever, dyspnea, syncope, headache, dizziness, GI bleed, back pain, seizure, CVA, palpatations, mental health, musculoskeletal)? @ -Differential includes UTI, pyelonephritis, kidney stone, this is not an all- inclusive list EKG interpreted by me (3pts min.). @ -As above X-rays interpreted by me (1pt min.). @ -None done CT interpreted by me (1pt min.). @ -None done U/S interpreted by me (1pt. min.). @ -None done What testing was considered but not performed or refused? (CT, X-rays, U/S, labs)? Why? @ -None What meds were considered but not given or refused? Why? @ -None Did you discuss the management of the patient with other professionals (professionals i.e. , PA, GRAIN MIXER, lab, RT, psych nurse, group social worker, jewel setter, teacher, project officer, classification case manager)? Give summary @ -No Was smoking cessation discussed for >3mins.? @ -No Was critical care preformed (if so, how long)? @ -No Were there social determinants of health that impacted care today? How? (Homelessness, low income, unemployed, alcoholism, drug addiction, transportation, low edu. Level, literacy, decrease access to med. care, fci, rehab)? @ -No Was there de-escalation of care discussed even if they declined (Discuss DNR or withdrawal of care, Hospice)? DNR status @ -No What co-morbidities impacted this encounter? (DM, HTN, Smoking, COPD, CAD, Cancer, CVA, ARF, Chemo, Hep., AIDS, mental health diagnosis, sleep apnea, morbid obesity)? @ -None Was patient admitted / discharged? Hospital course, mention meds given and route, prescriptions, significant lab abnormalities, going to OR and other pertinent info. @ -44-year-old female presenting with chief complaint of dysuria and lower abdominal pain. Also now complaining of some left-sided flank pain. Urine shows 36 WBCs and 16 RBCs. Negative hCG. Patient has been taking Azo, her urine is dark orange in color. She will be treated for UTI with Bactrim. Urine is sent for culture. Patient is agreeable with this plan. My attending is Dr. Beck Undiagnosed new problem with uncertain prognosis? @ -No Drug Therapy requiring intensive monitoring for toxicity (Heparin, Nitro, Insulin, Cardizem)? @ -No Were any procedures done? @ -No Diagnosis/symptom? @ -UTI Acute, or Chronic, or Acute on Chronic? @ -Acute Uncomplicated (without systemic symptoms) or Complicated (systemic symptoms)? @ -Uncomplicated Side effects of treatment? @ -No Exacerbation, Progression, or Severe Exacerbation? @ -No Poses a threat to life or bodily function? How? (Chest pain, [place], [place], pneumonia, PE, COPD, DKA, ARF, appy, cholecystitis, CVA, Diverticulitis, Homicidal, Suicidal, threat to staff... and all critical care pts) @ -Potential if not properly treated - Lab Data Lab Results 05/27/24 05/27/24 Range/Units 15:06 15:06 Urine Color Dark [place] Urine Appearance Clear (Clear) Urine RBC 16 H (0-5) /hpf Urine WBC 36 H (0-5) /hpf Ur Squamous Epith Cells 4 (0-4) /hpf Urine Bacteria Rare H (None) /hpf Urine Mucus Rare H (None) /hpf Urine HCG, Qual Not Detected (Not Detectd) Disposition Clinical Impression: UTI (urinary tract infection) Disposition: HOME SELF-CARE Condition: Good Instructions (If sedation given, give patient instructions): Urinary Tract Infection in Women (ED) Additional Instructions: Follow-up with PCP. Report back to ER with any new or worsening symptoms. Take medication as prescribed. Prescriptions: Sulfamethox-Tmp 800-160Mg [Bactrim DS 800-160 mg] 1 tab PO Q12HR 14 Days #28 tab Is patient prescribed a controlled substance at d/c from ED?: No Referrals: Vini Samuel MD [Primary Care Provider] - 1-2 days Time of Disposition: 15:37
[2024-05-27] MEDS: SULFAMETHOX-TMP 800-160MG 1 EACH TAB PO STA (15:40)
[2024-05-27 15:43] VITALS: BP 110/72; PULSE 71; RESP 18; TEMP 98.1
== END 2024-05-27 16:05 | disposition home or self-care (01) ==
LOC: EC 13:49
CPT/HCPCS: 81001; 81025; 87077; 87086; 87186; 96372; 99283

== ENCOUNTER → 2024-06-11 | Outpatient (CLI) | payer MEDICARE ==
[2024-06-11 16:09] LABS: ALT 158 U/L (8-44); AST 68 U/L (13-35); Albumin 4.1 g/dL (3.8-4.9); Albumin/Globulin Ratio 1.46 Ratio (1.60-3.17); Alkaline Phosphatase 70 U/L (41-126); BUN/Creat Ratio 17.78 Ratio (12.00-20.00); Bilirubin, Conjugated <0.20 mg/dL (0.20-0.40); Bilirubin,Unconjugated >0.10 mg/dL (0.20-1.00); C Reactive Protein <0.30 mg/dL (0.00-0.80); Calcium 9.1 mg/dL (8.7-10.3); Carbon Dioxide 21.9 mmol/L (21.6-31.8); Chloride 110 mmol/L (96-109); Globulin 2.8 g/dL (1.6-3.3); Glucose 96 mg/dL (70-110); Potassium 4.2 mmol/L (3.5-5.5); Sodium 143 mmol/L (135-145); Total Bilirubin 0.3 mg/dL (0.3-1.2); Total Protein 6.9 g/dL (6.2-8.2)
[2024-06-11 16:33] LABS: Basophils # (A) 0.03 X 10*3/uL (0.00-0.10); Basophils % (A) 0.5 %; Eosinophils % (A) 3.6 %; HCT 42.3 % (37.2-46.3); HGB 13.7 g/dL (12.0-15.0); Lymphocytes # (A) 3.05 X 10*3/uL (0.90-5.00); Lymphocytes % (A) 55.6 %; MCH 32.9 pg (27.0-32.0); MCHC 32.4 g/dL (32.0-37.0); MCV 101.4 FL (80.0-97.0); Mean Platelet Volume 11.1 FL (9.5-12.2); Monocytes # (A) 0.38 X 10*3/uL (0.20-1.00); Monocytes % (A) 6.9 %; NRBC Per 100 WBC 0 X 10*3/uL (0.00-0.01); Neutrophils % (A) 32.9 %; Platelet Count 177 X 10*3/uL (140-440); RBC 4.17 X 10*6/uL (4.10-5.20); RDW 12.3 % (11.5-14.5); WBC 5.49 X 10*3/uL (4.50-10.00)
== END | disposition home or self-care (01) ==
LOC: LABWHC1 11:09
PROVIDERS: ATTEND Internal Medicine
DX: T50.905A Adverse effect of unspecified drugs, medicaments and biological substances, initial encounter (principal)
CPT/HCPCS: 36415; 80048; 80076; 85025; 86140

== ENCOUNTER 2024-07-28 20:01 | Emergency (ER) | payer MEDICARE ==
--- NOTE | 2024-07-28 20:25 | ED ---
General Adult HPI - General Chief complaint: Syncope Stated complaint: syncope, danika leg numbness, chest pain Time Seen by Provider: 07/28/24 20:19 Source: patient, RN notes reviewed Mode of arrival: wheelchair Limitations: no limitations - History of Present Illness Initial comments: This is a 44-year-old female with a history of endometriosis, aneurysm, m igraines, and seizures on depakote, presenting to the emergency department for chief complaint of a syncopal event. Patient states that approximately 2 hours prior to arrival she was sitting on the couch and she stood up walked roughly 6 feet when she had a syncopal event. before the event she states she experienced tunnel vision and lightheaded. It is reported that patient was unconscious for approximately 6 minutes after the event. This event was witnessed by the patient's who denies seizure-like activity. Patient denies tongue biting or loss of bladder continence during the event. Currently she is endorsing a headache described as a throbbing sensation, bilateral calf pain/h eaviness, and substernal chest pain. She denies shortness of breath, abdominal pain, nausea, fevers, chills. She denies recent prolonged travel, recent surgeries, history of DVT or PE. denies current blood thinner use. - Related Data Home Medications Medication Instructions Recorded Confirmed Amitriptyline HCl 50 mg PO HS 07/15/19 03/27/20 Divalproex [Depakote] 1,000 mg PO HS 07/15/19 03/27/20 Ketorolac Tromethamine 10 mg PO Q6H PRN 07/15/19 03/27/20 estradioL [Estrace] 0.5 mg PO DAILY 07/15/19 03/27/20 tiZANidine HCL 4 mg PO BID 07/15/19 03/27/20 Estradiol Cream [Estrace Cream 1 applicator VAGINAL TUTH 03/27/20 03/27/20 0.01%] Propranolol [Inderal] 20 mg PO BID 03/27/20 03/27/20 Topiramate [Topamax] 50 mg PO BID 03/27/20 03/27/20 danazoL [Danazol] 200 mg PO BID 03/27/20 03/27/20 hydrOXYzine HCL 50 mg PO DAILY 03/27/20 03/27/20 hydrOXYzine HCL [Atarax] 25 mg PO HS 03/27/20 03/27/20 Previous Rx's Medication Instructions Recorded Sulfamethox-Tmp 800-160Mg [Bactrim 1 tab PO Q12HR 14 Days #28 tab 05/27/24 DS 800-160 mg] Allergies Allergy/AdvReac Type Severity Reaction Status Date / Time ceftriaxone [From Rocephin] Allergy Rash/Hives Verified 07/28/24 20:06 Iodinated Contrast Media Allergy Rash/Hives Verified 07/28/24 20:06 Influenza Virus Vaccines AdvReac Nausea & Verified 07/28/24 20:06 Vomiting Review of Systems ROS Statement: Those systems with pertinent positive or pertinent negative responses have been documented in the HPI. ROS Other: All systems not noted in ROS Statement are negative. Past Medical History Additional Past Medical History / Comment(s): brain aneurysm 06/2013, endometriosis, cervical cancer 2013, Chrohns 2004, shingles History of Any Multi-Drug Resistant Organisms: None Reported Past Surgical History: Hysterectomy Additional Past Surgical History / Comment(s): brain surgery 5 stents and two coils 06/2013, hysterectomy 2007. abdominal lap. biopsys EGD/colonoscopy Past Anesthesia/Blood Transfusion Reactions: No Reported Reaction Past Psychological History: Anxiety, Depression, PTSD Smoking Status: Never smoker Past Alcohol Use History: Rare Past Drug Use History: None Reported - Past Family History Father Additional Family Medical History / Comment(s): brain aneurysm 04/2019 passed Mother Family Medical History: No Reported History Brother(s) Family Medical History: Thyroid Disorder General Exam Limitations: no limitations Eye exam: Present: normal appearance, PERRL, EOMI. Absent: scleral icterus, conjunctival injection, periorbital swelling ENT exam: Present: normal exam, mucous membranes moist Neck exam: Present: normal inspection. Absent: tenderness, meningismus, lymphadenopathy Respiratory exam: Present: normal lung sounds bilaterally. Absent: respiratory distress, wheezes, rales, rhonchi, stridor Cardiovascular Exam: Present: regular rate, normal rhythm, normal heart sounds. Absent: systolic murmur, diastolic murmur, rubs, gallop, clicks GI/Abdominal exam: Present: soft, normal bowel sounds. Absent: distended, tenderness, guarding, rebound, rigid Extremities exam: Present: normal inspection, full ROM, tenderness (bilateral lower extremity to palpation, no erythema or edema), normal capillary refill. Absent: pedal edema, joint swelling, calf tenderness Back exam: Present: normal inspection Neurological exam: Present: alert, oriented X3, CN II-XII intact Course Vital Signs 07/28/24 20:03 Temperature 98.7 F Pulse Rate 80 Respiratory 18 Rate Blood Pressure 117/62 O2 Sat by Pulse 98 Oximetry Medical Decision Making - Medical Decision Making Was pt. sent in by a medical professional or institution (, PA, PAINT PREP TECHNICIAN, urgent care, hospital, or intermediate...) When possible be specific @ -No Did you speak to anyone other than the patient for history (EMS, parent, family, police, friend...)? What history was obtained from this source @ -No Did you review nursing and triage notes (agree or disagree)? Why? @ -I reviewed and agree with nursing and triage notes Were old charts reviewed (outside hosp., previous admission, EMS record, old EKG, old radiological studies, urgent care reports/EKG's, intermediate records)? Report findings @ -No old charts were reviewed Differential Diagnosis (chest pain, altered mental status, abdominal pain women, abdominal pain men, vaginal bleeding, weakness, fever, dyspnea, syncope, headache, dizziness, GI bleed, back pain, seizure, CVA, palpatations, mental health, musculoskeletal)? @ -Differential Syncope: Valvular disease, hypertrophic cardiomyopathy, pulmonary embolism, tamponade, tachycardia, bradycardia, [place], hypovolemia, hemorrhage, dissection, anemia, intracranial hemorrhage, seizure, hypoglycemia, carbon monoxide poisoning, this is not meant to be an all-inclusive list. EKG interpreted by me (3pts min.). @ -Completed at 2014 sinus rhythm with ventricular rate 75, PA interval 178, QRS 90, QTc 408. X-rays interpreted by me (1pt min.). @ -Chest x-ray mild patchy atelectasis. CT interpreted by me (1pt min.). @ -CT angiography of the chest with IV contrast reveals no acute findings in the visualized arteries of the chest U/S interpreted by me (1pt. min.). @ -Bilateral lower extremity duplex ultrasound negative for DVT What testing was considered but not performed or refused? (CT, X-rays, U/S, labs)? Why? @ -None What meds were considered but not given or refused? Why? @ -None Did you discuss the management of the patient with other professionals (professionals i.e. , PA, PAINT PREP TECHNICIAN, lab, RT, psych nurse, social welfare administrator, plasticator, teacher, corporate banking officer, correctional case manager)? Give summary @ -No Was smoking cessation discussed for >3mins.? @ -No Was critical care preformed (if so, how long)? @ -No Were there social determinants of health that impacted care today? How? (Homelessness, low income, unemployed, alcoholism, drug addiction, transportation, low edu. Level, literacy, decrease access to med. care, longterm, rehab)? @ -No Was there de-escalation of care discussed even if they declined (Discuss DNR or withdrawal of care, Hospice)? DNR status @ -No What co-morbidities impacted this encounter? (DM, HTN, Smoking, COPD, CAD, Cancer, CVA, ARF, Chemo, Hep., AIDS, mental health diagnosis, sleep apnea, morbid obesity)? @ -None Was patient admitted / discharged? Hospital course, mention meds given and route, prescriptions, significant lab abnormalities, going to OR and other pertinent info. @ -Discharge. 44-year-old female with a syncopal event. My evaluation the patient shows. Her vitals are stable. Patient is complaining of bilateral lower extremity pain with no evidence of edema, erythema, palpable cord. Patient's neurological examination there is no acute deficits. Patient is provided with Tylenol for headache and we evaluated via laboratory studies for syncopal workup. She is in agreement with this plan. Chest x-ray reveals mild patchy atelectasis. Patient's laboratory studies are remarkable for a mildly elevated D-dimer at 0.64. This time patient is sent for a CT angiography of the chest to rule out potential pulmonary embolism however is premedicated with Benadryl prior to image. CTA negative for pulmonary embolism. Ultrasound of bilateral lower extremities negative patient is provided with additional medications for headache and states that she is feeling better after medication administration. She is provided with starter pack of Tylenol 3 to take as needed and instructed to follow-up with neurologist for further evaluation. All questions have been answered at bedside and strict return parameters discussed with the patient she is verbalized understanding. Case discussed with Dr. Block Undiagnosed new problem with uncertain prognosis? @ -No Drug Therapy requiring intensive monitoring for toxicity (Heparin, Nitro, Insulin, Cardizem)? @ -No Were any procedures done? @ -No Diagnosis/symptom? @ -Syncope, headache Acute, or Chronic, or Acute on Chronic? @ -Acute Uncomplicated (without systemic symptoms) or Complicated (systemic symptoms)? @ -Uncomplicated Side effects of treatment? @ -No Exacerbation, Progression, or Severe Exacerbation? @ -No Poses a threat to life or bodily function? How? (Chest pain, [place], [place], pneumonia, PE, COPD, DKA, ARF, appy, cholecystitis, CVA, Diverticulitis, Homicidal, Suicidal, threat to staff... and all critical care pts) @ -No - Lab Data Result diagrams: 07/28/24 20:30 07/28/24 20:30 Lab Results 07/28/24 07/28/24 07/28/24 Range/Units 20:30 20:30 20:30 WBC 8.0 (3.8-10.6) k/uL RBC 4.44 (3.80-5.40) m/uL Hgb 14.6 (11.4-16.0) gm/dL Hct 44.3 (34.0-46.0) % MCV 99.7 (80.0-100.0) fL MCH 32.8 (25.0-35.0) pg MCHC 32.9 (31.0-37.0) g/dL RDW 12.2 (11.5-15.5) % Plt Count 153 (150-450) k/uL MPV 7.7 Neutrophils % 38 % Lymphocytes % 46 % Monocytes % 7 % Eosinophils % 6 % Basophils % 1 % Neutrophils # 3.0 (1.3-7.7) k/uL Lymphocytes # 3.7 (1.0-4.8) k/uL Monocytes # 0.6 (0-1.0) k/uL Eosinophils # 0.5 (0-0.7) k/uL Basophils # 0.1 (0-0.2) k/uL PT 11.0 (10.0-12.5) sec INR 1.0 (<1.2) APTT 23.6 (22.0-30.0) sec D-Dimer 0.64 H (<0.60) mg/L FEU Sodium 142 (137-145) mmol/L Potassium 4.1 (3.5-5.1) mmol/L Chloride 110 H (98-107) mmol/L Carbon Dioxide 25 (22-30) mmol/L Anion Gap 7 mmol/L BUN 18 H (7-17) mg/dL Creatinine 0.92 (0.52-1.04) mg/dL Est GFR (CKD-EPI)AfAm 87 (>60 ml/min/1.73 sqM) Est GFR (CKD-EPI)NonAf 75 (>60 ml/min/1.73 sqM) Glucose 91 (74-99) mg/dL Calcium 8.9 (8.4-10.2) mg/dL Magnesium 1.7 (1.6-2.3) mg/dL Total Bilirubin 0.4 (0.2-1.3) mg/dL AST 69 H (14-36) U/L ALT 97 H (4-34) U/L Alkaline Phosphatase 78 (38-126) U/L Troponin I (0.000-0.034) ng/mL Total Protein 7.1 (6.3-8.2) g/dL Albumin 4.0 (3.5-5.0) g/dL 07/28/24 Range/Units 20:30 WBC (3.8-10.6) k/uL RBC (3.80-5.40) m/uL Hgb (11.4-16.0) gm/dL Hct (34.0-46.0) % MCV (80.0-100.0) fL MCH (25.0-35.0) pg MCHC (31.0-37.0) g/dL RDW (11.5-15.5) % Plt Count (150-450) k/uL MPV Neutrophils % % Lymphocytes % % Monocytes % % Eosinophils % % Basophils % % Neutrophils # (1.3-7.7) k/uL Lymphocytes # (1.0-4.8) k/uL Monocytes # (0-1.0) k/uL Eosinophils # (0-0.7) k/uL Basophils # (0-0.2) k/uL PT (10.0-12.5) sec INR (<1.2) APTT (22.0-30.0) sec D-Dimer (<0.60) mg/L FEU Sodium (137-145) mmol/L Potassium (3.5-5.1) mmol/L Chloride (98-107) mmol/L Carbon Dioxide (22-30) mmol/L Anion Gap mmol/L BUN (7-17) mg/dL Creatinine (0.52-1.04) mg/dL Est GFR (CKD-EPI)AfAm (>60 ml/min/1.73 sqM) Est GFR (CKD-EPI)NonAf (>60 ml/min/1.73 sqM) Glucose (74-99) mg/dL Calcium (8.4-10.2) mg/dL Magnesium (1.6-2.3) mg/dL Total Bilirubin (0.2-1.3) mg/dL AST (14-36) U/L ALT (4-34) U/L Alkaline Phosphatase (38-126) U/L Troponin I <0.012 (0.000-0.034) ng/mL Total Protein (6.3-8.2) g/dL Albumin (3.5-5.0) g/dL Disposition Clinical Impression: Syncope, Headache, Migraine Disposition: HOME SELF-CARE Condition: Good Instructions (If sedation given, give patient instructions): Syncope (ED) Additional Instructions: Please return to the Emergency Department if symptoms worsen or any other concerns. Is patient prescribed a controlled substance at d/c from ED?: No Referrals: Nonstaff,Physician [Primary Care Provider] - 1-2 days Time of Disposition: 02:04
[2024-07-28] MEDS: ACETAMINOPHEN TAB 500 MG TAB PO STA (20:36)
[2024-07-28] MEDS: SODIUM CHLORIDE 0.9% 1,000 ML IV STA (20:36)
[2024-07-28 20:46] LABS: Basophils # (A) 0.1 k/uL (0-0.2); Basophils % (A) 1 %; Eosinophils # (A) 0.5 k/uL (0-0.7); Eosinophils % (A) 6 %; HCT 44.3 % (34.0-46.0); HGB 14.6 gm/dL (11.4-16.0); Lymphocytes # (A) 3.7 k/uL (1.0-4.8); Lymphocytes % (A) 46 %; MCH 32.8 pg (25.0-35.0); MCHC 32.9 g/dL (31.0-37.0); MCV 99.7 fL (80.0-100.0); Mean Platelet Volume 7.7; Monocytes # (A) 0.6 k/uL (0-1.0); Monocytes % (A) 7 %; Neutrophils % (A) 38 %; Platelet Count 153 k/uL (150-450); RBC 4.44 m/uL (3.80-5.40); RDW 12.2 % (11.5-15.5)
[2024-07-28 21:02] LABS: ALT 97 U/L (4-34); AST 69 U/L (14-36); African American GFR (CKD) 87 (>60 ml/min/1.73 sqM); Alkaline Phosphatase 78 U/L (38-126); Anion Gap 7 mmol/L; Blood Urea Nitrogen 18 mg/dL (7-17); Calcium 8.9 mg/dL (8.4-10.2); Carbon Dioxide 25 mmol/L (22-30); Chloride 110 mmol/L (98-107); Glucose 91 mg/dL (74-99); Magnesium 1.7 mg/dL (1.6-2.3); Non-African American GFR(CKD) 75 (>60 ml/min/1.73 sqM); Potassium 4.1 mmol/L (3.5-5.1); Sodium 142 mmol/L (137-145); Total Bilirubin 0.4 mg/dL (0.2-1.3); Total Protein 7.1 g/dL (6.3-8.2)
[2024-07-28 21:10] LABS: Partial Thromboplastin Time 23.6 sec (22.0-30.0)
--- NOTE | 2024-07-28 21:33 | XR ---
EXAMINATION TYPE: XR chest 2V DATE OF EXAM: 07/28/2024 9:29 PM COMPARISON: None CLINICAL INDICATION: Female, 44 years old with history of syncope, , TECHNIQUE: AP and lateral views FINDINGS: Heart upper limits of normal in size. Pulmonary vasculature within normal limits. Mild pat blanka density left base. IMPRESSION: Mild patchy atelectasis versus early infiltrate at the left base. [facility], , 07/28/2024 9:30 PM
--- NOTE | 2024-07-28 21:52 | CT ---
EXAMINATION TYPE: CT brain wo con DATE OF EXAM: 07/28/2024 9:33 PM COMPARISON: 04/20/2024 CLINICAL INDICATION: Female, 44 years old with history of syncope, VALENZUELA, dizziness, Patient states that she passed out, has blit leg pain and a headache. Patient states she feels weak., TECHNIQUE: Examination was done in axial plane without intravenous contrast. Coronal and sagittal r econstructions performed. CT DLP: 1138.8 mGycm, Automated exposure control for dose reduction was used. FINDINGS: There is no evidence of acute intracranial hemorrhage, acute ischemic changes, mass, mass-effect, or extra-axial fluid collection. There is no effacement of cerebral sulci or basal subarachnoid cister ns. There is no hydrocephalus. There is no midline shift. Lovelace-white matter distinction is preserv ed. There appears to be a stent in the left carotid siphon possible embolization coil. Mild volume loss o verlying the bilateral cerebral convexities. Moderate to severe mucosal thickening right maxillary sinus. Mild within the left maxillary sinus. O rbits and globes are intact. Mastoid air cells well pneumatized. Leftward nasal septal deviation. IMPRESSION: 1. Left ICA stent and possible embolization coil. Clinically correlate. 2. No acute intracranial abnormality seen. 3. Moderate to severe chronic right maxillary sinus disease. [facility], , 07/28/2024 9:49 PM
[2024-07-28] MEDS: diphenhydrAMINE 50 MG/ML 1 ML VIAL IVP STA (22:39)
--- NOTE | 2024-07-28 23:12 | US ---
EXAM: US Duplex Bilateral Lower Extremities Veins CLINICAL HISTORY: ITS.REASON US Reason: syncope, bilateral LE pain, CP TECHNIQUE: Real-time duplex ultrasound scan of the bilateral lower extremity veins integrating B-mode two-dimensional vascular structure, Doppler spectral analysis, color flow Doppler imaging and compression. COMPARISON: No relevant prior studies available. FINDINGS: Right deep veins: Unremarkable. The visualized deep veins of the right lower extremity are compressible with color flow. No visualized thrombus. Right superficial veins: Unremarkable. Left deep veins: Unremarkable. The visualized deep veins of the left lower extremity are compressible with color flow. No visualized thrombus. Left superficial veins: Unremarkable. Soft tissues: No acute findings. IMPRESSION: No DVT within the bilateral lower extremities.
--- NOTE | 2024-07-28 23:44 | CT ---
EXAM: CT Angiography Chest With Intravenous Contrast CLINICAL HISTORY: ITS.REASON CT Reason: syncope, CP, elevated d-dimer TECHNIQUE: Axial computed tomographic angiography images of the chest with intravenous contrast. CTDI is 14.9 mGy and DLP is 450 mGy-cm. This CT exam was performed using one or more of the following dose reduction techniques: automated exposure control, adjustment of the mA and/or kV according to patient size, and/or use of iterative reconstruction technique. MIP reconstructed images were created and reviewed. COMPARISON: No relevant prior studies available. FINDINGS: Pulmonary arteries: Unremarkable. No pulmonary embolism. Aorta: No acute findings. Normal caliber. No dissection. Lungs: Atelectasis at the lung bases. No consolidation. No pulmonary infarct. Pleural space: Unremarkable. Heart: Unremarkable. Bones/joints: No acute fracture. Soft tissues: Unremarkable. Lymph nodes: Unremarkable. IMPRESSION: No acute findings in the visualized arteries of the chest.
[2024-07-28] MEDS: KETOROLAC 15 MG/ML 1 ML VIAL IVP STA (23:57)
[2024-07-28] MEDS: MORPHINE SULFATE 4 MG/ML SYRINGE IVP STA (23:58)
[2024-07-29] MEDS: ONDANSETRON 4 MG/2 ML VIAL IVP STA (01:18)
[2024-07-29] MEDS: HYDROmorphone 1 MG/ML 1 ML SYRINGE IVP STA (01:18)
[2024-07-29] MEDS: ACET/COD 300 MG/30 MG STARTER PACK 6 TAB BTL PO STA (02:32)
[2024-07-29 02:39] VITALS: BP 109/56; PULSE 78; RESP 17; TEMP 98
== END 2024-07-29 02:47 | disposition home or self-care (01) ==
LOC: EC 20:01
DX: G43.909 Migraine, unspecified, not intractable, without status migrainosus (principal); R55 Syncope and collapse; Z88.7 Allergy status to serum and vaccine; Z88.1 Allergy status to other antibiotic agents; Z91.041 Radiographic dye allergy status
CPT/HCPCS: 99285; 96374; 96375 ×4; 96361; 36415; 93005; 85379; 80053; 83735; 84484; 85025; 85610; 85730; 71046; 93970; 70450; 71275; J2270; J1200; J2405; J1171; J1885; Q9967

== ENCOUNTER 2024-08-21 22:14 | Emergency (ER) | payer MEDICARE ==
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
[2024-08-21 22:22] VITALS: BP 125/70; PULSE 88; RESP 16; TEMP 98.1
[2024-08-21] MEDS: traMADol 50 MG TAB PO STA (22:46)
[2024-08-21] MEDS: ACETAMINOPHEN TAB 500 MG TAB PO STA (22:47)
[2024-08-21] MEDS: ONDANSETRON ODT 4 MG TAB PO STA (22:47)
[2024-08-21 23:36] LABS: Appearance,Urine Clear (Clear); Bilirubin,Urine Negative (Negative); Blood,Urine Negative (Negative); Color,Urine Yellow; Glucose,Urine (UA) Negative (Negative); Ketones,Urine 1+ (Negative); Leukocyte Esterase,Urine Negative (Negative); Nitrite,Urine Negative (Negative); Protein,Urine Trace (Negative); Specific Gravity,Urine 1.035 (1.001-1.035)
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
[2024-08-22] MEDS: HYDROmorphone 1 MG/ML 1 ML SYRINGE IM STA (00:28)
[2024-08-22] MEDS: traMADol 50 MG STARTER PACK 3 TAB BTL PO STA (00:39)
[2024-08-22] MEDS: IBUPROFEN 600 MG STARTER PACK 4 TAB BTL PO STA (00:39)
[2024-08-22] MEDS: ETODOLAC 400 MG TAB PO STA (00:40)
[2024-08-22] MEDS: ONDANSETRON 4 MG ODT STARTER PACK 2 TAB BTL PO STA (00:40)
[2024-08-22] MEDS: diphenhydrAMINE 50 MG/ML 1 ML VIAL IVP STA (00:41)
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
== END 2024-08-22 00:46 | disposition home or self-care (01) ==
LOC: EC 22:14
DX: R07.89 Other chest pain (principal); R51.9 Headache, unspecified; Z88.1 Allergy status to other antibiotic agents; Z88.7 Allergy status to serum and vaccine; Z91.041 Radiographic dye allergy status; V89.2XXA Person injured in unspecified motor-vehicle accident, traffic, initial encounter; Y92.410 Unspecified street and highway as the place of occurrence of the external cause
CPT/HCPCS: 81003; 72170; 71045; 72125; 70450; 99284; 96374; 96372; J1200; J1171; S0119

== ENCOUNTER → 2024-12-06 | Outpatient (CLI) | payer MEDICARE ==
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
== END | disposition home or self-care (01) ==
LOC: RADUSWWP 08:33
PROVIDERS: ATTEND Obstetrics & Gynecology
DX: K76.0 Fatty (change of) liver, not elsewhere classified (principal); R74.01 Elevation of levels of liver transaminase levels
CPT/HCPCS: 76705